=== PATIENT | female | born 1965 | race Asian ===

== ENCOUNTER 2021-10-08 18:20 | Inpatient (IN) | payer OTHER ==
[~2021-10-08] VITALS: Ht 152.4 cm; Wt 47.0 kg
[2021-10-08 22:05] LABS: Mean Corpuscular Volume 92.2 fL (80.0-100.0)
[2021-10-08 22:07] LABS: Hematocrit 53.7 % (36.0-46.0); Hemoglobin 16.6 g/dL (12.2-16.2); Mean Corpuscular Hemoglobin 28.5 pg (28.0-32.0); Mean Corpuscular Hgb Conc. 30.9 g/dL (32.0-36.0); Red Blood Cells 5.82 10^6/uL (4.0-5.20); White Blood Cell 19.8 10^3/uL (4.4-10.8)
[2021-10-08 22:10] LABS: Basophils % (manual) 0 (0.0-2.0); Blast Cells 0; Eosinophils % (manual) 0 (0-7); Metamyelocytes % 0; Promyelocytes % 0; Reactive Lymphocytes 0
[2021-10-08 23:25] LABS: Band Neutrophils % (manual) 18; Lymphocytes % (manual) 6 (10.0-50.0); Monocytes % (manual) 5 (0-12); Myelocytes % 1
[2021-10-08 23:44] LABS: Anion Gap 30 (5-15); Blood Urea Nitrogen 38 mg/dL (7-18); Chloride 98 mmol/L (98-107); Glucose 712 mg/dL (74-106); Sodium 131 mmol/L (136-145)
[2021-10-08 23:45] LABS: Alanine Aminotransferase 59 U/L (13-56); Albumin 3.5 g/dL (3.4-5.0); Alkaline Phosphatase 124 U/L (45-117); Aspartate Aminotransferase 47 U/L (15-37); BUN/Creatinine Ratio 28.6; Bilirubin, Total 0.5 mg/dL (0.2-1.0); Calcium 8.5 mg/dL (8.5-10.1); GFR African American 53 mL/min; GFR Non-African American 44 mL/min; Total Protein 7.7 g/dL (6.4-8.2)
[2021-10-08 23:48] LABS: Carbon Dioxide 3 mmol/L (21-32); Potassium 5.6 mmol/L (3.5-5.1)
[2021-10-09] MEDS ORDERED: CALCIUM GLUC 1,000mg/50ml-NS 50 ML IV ONE (00:15)
[2021-10-09] MEDS ORDERED: ETOMIDATE (2MG/ML) 20ML VIAL IV ONE (00:45)
[2021-10-09] MEDS ORDERED: SUCCINYLCHOLINE CHLORIDE 20 MG/ML 10ML VIAL IV ONE (00:45)
[2021-10-09] MEDS ORDERED: MIDAZOLAM DRIP 50 mg/50mL 50 ML IV ONE (00:52)
[2021-10-09] MEDS: MIDAZOLAM DRIP 50 mg/50mL 50 ML IV SCH (01:00)
[2021-10-09] MEDS ORDERED: DEXTROSE (50%) 50ML SYRG IV PRN ×3 (01:45→13:00)
[2021-10-09] MEDS: NOREPINEPHRINE 8 MG/250ML KIT 250 ML IV SCH (01:45)
[2021-10-09] MEDS ORDERED: InsuLIN R (HUMAN) 100 UNITS in SODIUM CHL 0.9% 99 ML IV SCH (01:45)
[2021-10-09] MEDS: InsuLIN R (HUMAN) 100 UNITS in SODIUM CHL 0.9% 99 ML IV SCH (02:00)
[2021-10-09] MEDS: fentaNYL Drip 2500mCg/250mlNS 250 ML IV SCH (02:07)
[2021-10-09 02:22] LABS: Urine Bacteria FEW /hpf (None Seen); Urine Blood TRACE /uL (Negative); Urine Hyaline Cast FEW /lpf (0 - 2); Urine Mucus FEW (None Seen); Urine Specific Gravity 1.022 (1.001-1.035); Urine WBC <1 /hpf (0 - 5)
[2021-10-09 03:12] LABS: Calcium 10.2 mg/dL (8.5-10.1); Potassium 4.9 mmol/L (3.5-5.1)
[2021-10-09] MEDS: SODIUM CHLORIDE 0.9% 1,000 ML IV SCH ×5 (03:22→22:50)
[2021-10-09] MEDS: ACCU-CHEK COMFORT CURVE STRIP VI SCH ×14 (03:25→21:00)
[2021-10-09 03:38] LABS: BUN/Creatinine Ratio 32.7
[2021-10-09] MEDS ORDERED: SODIUM CHLORIDE 0.9% 1,000 ML IV ONE (05:30)
[2021-10-09 06:07] VITALS: BP 124/57
[2021-10-09] MEDS ORDERED: ONDANSETRON HCL 4 MG/2 ML VIAL IV PRN (06:30)
[2021-10-09] MEDS ORDERED: NITROGLYCERIN 0.4 MG SL TAB SL PRN (06:30)
[2021-10-09] MEDS ORDERED: SODIUM BICARBONATE 50ML VIAL 100 ML in SOD CHL 0.45% 1,000 ML IV SCH (06:30)
[2021-10-09] MEDS ORDERED: MORPHINE SULFATE INJECTION 2 MG/ML SYRG IV PRN (06:30)
[2021-10-09] MEDS ORDERED: ACETAMINOPHEN 325 MG TAB PO PRN (06:30)
[2021-10-09] MEDS ORDERED: SODIUM CHLORIDE 0.9% 1,000 ML IV SCH (07:30)
[2021-10-09 09:54] VITALS: BP 119/57
[2021-10-09] MEDS ORDERED: ENOXAPARIN SOD 40 MG/0.4 ML SYRINGE SC SCH (10:00)
[2021-10-09] MEDS: AZITHROMYCIN 500MG/ 250ML 250 ML IV SCH (10:43)
[2021-10-09 12:25] LABS: Calcium 7.8 mg/dL (8.5-10.1); Potassium 4.4 mmol/L (3.5-5.1)
[2021-10-09 12:28] LABS: BUN/Creatinine Ratio 41.8
[2021-10-09] MEDS ORDERED: ACETAMINOPHEN 500 MG TAB PO PRN (12:45)
[2021-10-09] MEDS ORDERED: REMDESIVIR PER PHARMACY 0 ML IV SCH (12:45)
[2021-10-09] MEDS ORDERED: ALBUTEROL SULF HFA 90MCG INH 200DOSE IN PRN (12:45)
[2021-10-09] MEDS ORDERED: cefTRIAXone 1GM/50ML D5W 50 ML IV ONE (12:45)
[2021-10-09] MEDS ORDERED: PANTOPRAZOLE 40 MG/10 ML VIAL INJ IV ONE (13:00)
[2021-10-09] MEDS ORDERED: ALBUTEROL SULF 2.5 MG/0.5ML(0.5%) NEB SOLN NEB PRN (13:15)
[2021-10-09 14:03] VITALS: BP 100/49
[2021-10-09] MEDS: IVERMECTIN 3 MG TAB PO SCH (14:15)
[2021-10-09 14:55] LABS: Albumin 2.3 g/dL (3.4-5.0); Calcium 7.8 mg/dL (8.5-10.1); Potassium 4.9 mmol/L (3.5-5.1)
[2021-10-09 14:56] LABS: Calcium 7.9 mg/dL (8.5-10.1); Potassium 4.8 mmol/L (3.5-5.1)
[2021-10-09 14:58] LABS: BUN/Creatinine Ratio 38.1; BUN/Creatinine Ratio 39.7; Bilirubin, Total 0.3 mg/dL (0.2-1.0); Total Protein 4.7 g/dL (6.4-8.2)
[2021-10-09 17:58] VITALS: BP 106/54
[2021-10-09] MEDS: InsuLIN REG 1unit/0.01ml Soln (100units/ml) SC SCH (18:05)
[2021-10-09] MEDS: ENOXAPARIN SOD 40 MG/0.4 ML SYRINGE SC SCH (21:51)
[2021-10-09 22:30] VITALS: BP 100/54
[2021-10-09 22:59] LABS: BUN/Creatinine Ratio 29.9; Calcium 7.7 mg/dL (8.5-10.1)
[2021-10-10] MEDS: ACCU-CHEK COMFORT CURVE STRIP VI SCH ×5 (00:07→20:27)
[2021-10-10] MEDS: InsuLIN REG 1unit/0.01ml Soln (100units/ml) SC SCH ×5 (00:10→20:29)
[2021-10-10] MEDS: MIDAZOLAM DRIP 50 mg/50mL 50 ML IV SCH ×2 (00:45→09:10)
[2021-10-10] MEDS: InsuLIN R (HUMAN) 100 UNITS in SODIUM CHL 0.9% 99 ML IV SCH (02:00)
[2021-10-10 02:30] VITALS: BP 129/67
[2021-10-10] MEDS ORDERED: SOD CHL 0.45% 1,000 ML IV SCH (03:45)
[2021-10-10 03:58] LABS: Basophils # (auto) 0 10 ^3/uL (0-0.2); Basophils % (auto) 0.2 % (0.0-2.0); Eosinophils # (auto) 0 10 ^3/uL (0-0.8); Hematocrit 34.4 % (36.0-46.0); Hemoglobin 11.7 g/dL (12.2-16.2); Lymphocytes # (auto) 0.6 10 ^3/uL (0.4-5.4); Mean Corpuscular Hemoglobin 28.8 pg (28.0-32.0); Mean Corpuscular Hgb Conc. 33.9 g/dL (32.0-36.0); Mean Corpuscular Volume 84.7 fL (80.0-100.0); Monocytes # (auto) 1.5 10 ^3/uL (0-1.3); Monocytes % (auto) 14.2 % (0.0-12.0); Neutrophils # (auto) 8.5 10 ^3/uL (1.6-8.6); Neutrophils % (auto) 79.6 % (37.0-80.0); Nucleated Red Blood Cells % 0.1 %; Red Blood Cells 4.06 10^6/uL (4.0-5.20); Red Cell Distribution Width 13.4 % (11.8-14.3); White Blood Cell 10.7 10^3/uL (4.4-10.8)
[2021-10-10 04:20] LABS: Albumin 2.1 g/dL (3.4-5.0); BUN/Creatinine Ratio 31.1; Calcium 7.7 mg/dL (8.5-10.1); Potassium 3.6 mmol/L (3.5-5.1)
[2021-10-10 04:23] LABS: Bilirubin, Total 0.2 mg/dL (0.2-1.0); Total Protein 4.6 g/dL (6.4-8.2)
[2021-10-10 06:15] VITALS: BP 152/60
[2021-10-10] MEDS: NOREPINEPHRINE 8 MG/250ML KIT 250 ML IV SCH (08:31)
[2021-10-10] MEDS: cefTRIAXone 1GM/50ML D5W 50 ML IV SCH (08:47)
[2021-10-10 09:58] VITALS: BP 148/66
[2021-10-10] MEDS: fentaNYL Drip 2500mCg/250mlNS 250 ML IV SCH (10:07)
[2021-10-10] MEDS: DexAMETHasone SOD PHOS 10MG/1ML VIAL INJ IV SCH (10:58)
[2021-10-10] MEDS: AZITHROMYCIN 500MG/ 250ML 250 ML IV SCH (10:59)
[2021-10-10] MEDS: PANTOPRAZOLE 40 MG/10 ML VIAL INJ IV SCH (10:59)
[2021-10-10] MEDS: ENOXAPARIN SOD 40 MG/0.4 ML SYRINGE SC SCH ×2 (11:00→22:07)
[2021-10-10] MEDS: ZINC SULFATE 220mg CAP or TAB PO SCH (11:03)
[2021-10-10] MEDS: IVERMECTIN 3 MG TAB PO SCH (11:04)
[2021-10-10] MEDS: ASCORBIC ACID 1,000 MG TAB PO SCH (11:05)
[2021-10-10] MEDS: CHOLECALCIFEROL (VITD3) 2,000 UNIT CAP/TAB PO SCH (11:06)
[2021-10-10] MEDS: SODIUM BICARBONATE 50ML VIAL 50 ML in D5W 5% 1,000 ML IV SCH ×2 (11:45→21:40)
[2021-10-10] MEDS ORDERED: DEXTROSE (50%) 50ML SYRG IV PRN (13:00)
[2021-10-10 14:10] VITALS: BP 132/60
[2021-10-10 18:40] VITALS: BP 142/74
[2021-10-10 22:17] VITALS: BP 122/63
[2021-10-10 22:22] LABS: Phosphorus 1.7 mg/dL (2.5-4.90)
[2021-10-11] VITALS (7 sets, daily range): BP systolic 108–137; BP diastolic 63–77
[2021-10-11] MEDS: ACCU-CHEK COMFORT CURVE STRIP VI SCH ×6 (00:30→22:54)
[2021-10-11] MEDS: InsuLIN REG 1unit/0.01ml Soln (100units/ml) SC SCH ×6 (00:33→22:55)
[2021-10-11] MEDS: NOREPINEPHRINE 8 MG/250ML KIT 250 ML IV SCH (01:45)
[2021-10-11] MEDS: fentaNYL Drip 2500mCg/250mlNS 250 ML IV SCH ×2 (02:00→11:34)
[2021-10-11] MEDS: SODIUM BICARBONATE 50ML VIAL 50 ML in D5W 5% 1,000 ML IV SCH ×3 (05:50→11:33)
[2021-10-11 06:38] LABS: Basophils # (auto) 0 10 ^3/uL (0-0.2); Basophils % (auto) 0.2 % (0.0-2.0); Eosinophils # (auto) 0 10 ^3/uL (0-0.8); Hemoglobin 10.4 g/dL (12.2-16.2); Lymphocytes % (auto) 9.7 % (10.0-50.0); Mean Corpuscular Hemoglobin 29.2 pg (28.0-32.0); Mean Corpuscular Hgb Conc. 34.5 g/dL (32.0-36.0); Mean Corpuscular Volume 84.5 fL (80.0-100.0); Monocytes # (auto) 0.9 10 ^3/uL (0-1.3); Monocytes % (auto) 9.5 % (0.0-12.0); Neutrophils % (auto) 80.6 % (37.0-80.0); Nucleated Red Blood Cells % 0.3 %; Red Blood Cells 3.55 10^6/uL (4.0-5.20); Red Cell Distribution Width 13.6 % (11.8-14.3); White Blood Cell 9.9 10^3/uL (4.4-10.8)
[2021-10-11 06:59] LABS: Potassium 3.4 mmol/L (3.5-5.1)
[2021-10-11 07:04] LABS: Albumin 1.8 g/dL (3.4-5.0); BUN/Creatinine Ratio 27.5; Calcium 7.4 mg/dL (8.5-10.1)
[2021-10-11 07:07] LABS: Bilirubin, Total 0.2 mg/dL (0.2-1.0)
[2021-10-11] MEDS: cefTRIAXone 1GM/50ML D5W 50 ML IV SCH (09:00)
[2021-10-11] MEDS: ENOXAPARIN SOD 40 MG/0.4 ML SYRINGE SC SCH ×2 (10:00→22:58)
[2021-10-11] MEDS: AZITHROMYCIN 500MG/ 250ML 250 ML IV SCH (10:00)
[2021-10-11] MEDS: PANTOPRAZOLE 40 MG/10 ML VIAL INJ IV SCH (10:00)
[2021-10-11] MEDS: DexAMETHasone SOD PHOS 10MG/1ML VIAL INJ IV SCH (10:00)
[2021-10-11 11:18] LABS: Hepatitis C Antibody Negative (Negative)
[2021-10-11] MEDS: IVERMECTIN 3 MG TAB PO SCH (13:12)
[2021-10-11] MEDS: ZINC SULFATE 220mg CAP or TAB PO SCH (13:12)
[2021-10-11] MEDS: ASCORBIC ACID 1,000 MG TAB PO SCH (13:12)
[2021-10-11] MEDS: CHOLECALCIFEROL (VITD3) 2,000 UNIT CAP/TAB PO SCH (13:12)
[2021-10-12] VITALS (10 sets, daily range): BP systolic 130–169; BP diastolic 62–87
[2021-10-12 00:26] LABS: Sodium 139 mmol/L (136-145)
[2021-10-12] MEDS: MIDAZOLAM DRIP 50 mg/50mL 50 ML IV SCH (00:45)
[2021-10-12 00:56] LABS: Anion Gap 11 (5-15); BUN/Creatinine Ratio 25.1; Blood Urea Nitrogen 65 mg/dL (7-18); Calcium 7.7 mg/dL (8.5-10.1); Carbon Dioxide 15 mmol/L (21-32); Chloride 113 mmol/L (98-107); GFR African American 25 mL/min; GFR Non-African American 20 mL/min; Glucose 356 mg/dL (74-106); Potassium 3.6 mmol/L (3.5-5.1)
[2021-10-12] MEDS: NOREPINEPHRINE 8 MG/250ML KIT 250 ML IV SCH (01:45)
[2021-10-12] MEDS: ACCU-CHEK COMFORT CURVE STRIP VI SCH ×6 (06:01→20:00)
[2021-10-12] MEDS: InsuLIN REG 1unit/0.01ml Soln (100units/ml) SC SCH ×6 (06:01→20:00)
[2021-10-12 07:09] LABS: Basophils # (auto) 0 10 ^3/uL (0-0.2); Basophils % (auto) 0.3 % (0.0-2.0); Eosinophils # (auto) 0 10 ^3/uL (0-0.8); Hematocrit 30.9 % (36.0-46.0); Hemoglobin 10.6 g/dL (12.2-16.2); Lymphocytes # (auto) 1.1 10 ^3/uL (0.4-5.4); Lymphocytes % (auto) 11.3 % (10.0-50.0); Mean Corpuscular Hemoglobin 29.2 pg (28.0-32.0); Mean Corpuscular Hgb Conc. 34.2 g/dL (32.0-36.0); Mean Corpuscular Volume 85.4 fL (80.0-100.0); Monocytes # (auto) 0.8 10 ^3/uL (0-1.3); Monocytes % (auto) 8.4 % (0.0-12.0); Nucleated Red Blood Cells % 0.2 %; Red Blood Cells 3.62 10^6/uL (4.0-5.20); Red Cell Distribution Width 13.8 % (11.8-14.3); White Blood Cell 10.1 10^3/uL (4.4-10.8)
[2021-10-12 07:41] LABS: Alanine Aminotransferase 22 U/L (13-56); Albumin 1.8 g/dL (3.4-5.0); Alkaline Phosphatase 82 U/L (45-117); Anion Gap 9 (5-15); Aspartate Aminotransferase 25 U/L (15-37); BUN/Creatinine Ratio 27.5; Bilirubin, Total 0.3 mg/dL (0.2-1.0); Blood Urea Nitrogen 66 mg/dL (7-18); Calcium 7.5 mg/dL (8.5-10.1); Carbon Dioxide 17 mmol/L (21-32); Chloride 116 mmol/L (98-107); GFR African American 27 mL/min; GFR Non-African American 22 mL/min; Glucose 105 mg/dL (74-106); Potassium 3.5 mmol/L (3.5-5.1); Sodium 142 mmol/L (136-145); Total Protein 4.5 g/dL (6.4-8.2)
[2021-10-12] MEDS: fentaNYL Drip 2500mCg/250mlNS 250 ML IV SCH (08:54)
[2021-10-12] MEDS: cefTRIAXone 1GM/50ML D5W 50 ML IV SCH (09:00)
[2021-10-12] MEDS: DexAMETHasone SOD PHOS 10MG/1ML VIAL INJ IV SCH (10:00)
[2021-10-12] MEDS: CHOLECALCIFEROL (VITD3) 2,000 UNIT CAP/TAB PO SCH (10:00)
[2021-10-12] MEDS: AZITHROMYCIN 500MG/ 250ML 250 ML IV SCH (10:00)
[2021-10-12] MEDS: ASCORBIC ACID 1,000 MG TAB PO SCH (10:00)
[2021-10-12] MEDS: ZINC SULFATE 220mg CAP or TAB PO SCH (10:00)
[2021-10-12] MEDS: ENOXAPARIN SOD 40 MG/0.4 ML SYRINGE SC SCH ×2 (10:00→21:52)
[2021-10-12] MEDS: IVERMECTIN 3 MG TAB PO SCH (10:00)
[2021-10-12] MEDS: PANTOPRAZOLE 40 MG/10 ML VIAL INJ IV SCH (10:00)
[2021-10-13] VITALS (28 sets, daily range): BP systolic 132–168; BP diastolic 43–87
[2021-10-13] MEDS: MIDAZOLAM DRIP 50 mg/50mL 50 ML IV SCH (00:45)
[2021-10-13] MEDS: InsuLIN REG 1unit/0.01ml Soln (100units/ml) SC SCH ×6 (00:48→20:00)
[2021-10-13] MEDS: NOREPINEPHRINE 8 MG/250ML KIT 250 ML IV SCH (00:50)
[2021-10-13] MEDS: ACCU-CHEK COMFORT CURVE STRIP VI SCH ×6 (00:50→20:00)
[2021-10-13 05:06] LABS: Basophils # (auto) 0.1 10 ^3/uL (0-0.2); Basophils % (auto) 0.9 % (0.0-2.0); Eosinophils # (auto) 0 10 ^3/uL (0-0.8); Hematocrit 24.8 % (36.0-46.0); Hemoglobin 8.6 g/dL (12.2-16.2); Lymphocytes # (auto) 1.2 10 ^3/uL (0.4-5.4); Lymphocytes % (auto) 15.6 % (10.0-50.0); Mean Corpuscular Hemoglobin 30.8 pg (28.0-32.0); Mean Corpuscular Hgb Conc. 34.9 g/dL (32.0-36.0); Mean Corpuscular Volume 88.3 fL (80.0-100.0); Monocytes # (auto) 0.6 10 ^3/uL (0-1.3); Monocytes % (auto) 7.4 % (0.0-12.0); Neutrophils % (auto) 76.1 % (37.0-80.0); Nucleated Red Blood Cells % 0.1 %; Red Blood Cells 2.81 10^6/uL (4.0-5.20); Red Cell Distribution Width 13.9 % (11.8-14.3); White Blood Cell 7.9 10^3/uL (4.4-10.8)
[2021-10-13 05:44] LABS: Albumin 1.8 g/dL (3.4-5.0); BUN/Creatinine Ratio 30.7; Calcium 7.9 mg/dL (8.5-10.1); Potassium 3.1 mmol/L (3.5-5.1)
[2021-10-13] MEDS: fentaNYL Drip 2500mCg/250mlNS 250 ML IV SCH (05:45)
[2021-10-13 05:47] LABS: Bilirubin, Total 0.3 mg/dL (0.2-1.0); Total Protein 4.3 g/dL (6.4-8.2)
[2021-10-13] MEDS: cefTRIAXone 1GM/50ML D5W 50 ML IV SCH (09:00)
[2021-10-13] MEDS: AZITHROMYCIN 500MG/ 250ML 250 ML IV SCH (10:00)
[2021-10-13] MEDS: PANTOPRAZOLE 40 MG/10 ML VIAL INJ IV SCH (10:26)
[2021-10-13] MEDS: CHOLECALCIFEROL (VITD3) 2,000 UNIT CAP/TAB PO SCH (10:26)
[2021-10-13] MEDS: ASCORBIC ACID 1,000 MG TAB PO SCH (10:26)
[2021-10-13] MEDS: ENOXAPARIN SOD 40 MG/0.4 ML SYRINGE SC SCH ×2 (10:26→21:19)
[2021-10-13] MEDS: ZINC SULFATE 220mg CAP or TAB PO SCH (10:26)
[2021-10-13] MEDS: IVERMECTIN 3 MG TAB PO SCH (10:26)
[2021-10-13] MEDS: DexAMETHasone SOD PHOS 10MG/1ML VIAL INJ IV SCH (10:26)
[2021-10-13] MEDS ORDERED: SODIUM CHLORIDE 0.9% 1,000 ML IV ONE (12:30)
[2021-10-14] VITALS (21 sets, daily range): BP systolic 114–170; BP diastolic 64–78
[2021-10-14] MEDS: MIDAZOLAM DRIP 50 mg/50mL 50 ML IV SCH (00:45)
[2021-10-14] MEDS: NOREPINEPHRINE 8 MG/250ML KIT 250 ML IV SCH (01:45)
[2021-10-14] MEDS: ACCU-CHEK COMFORT CURVE STRIP VI SCH ×6 (04:00→20:00)
[2021-10-14] MEDS: InsuLIN REG 1unit/0.01ml Soln (100units/ml) SC SCH ×6 (04:00→20:00)
[2021-10-14] MEDS: cefTRIAXone 1GM/50ML D5W 50 ML IV SCH (09:11)
[2021-10-14] MEDS: PANTOPRAZOLE 40 MG/10 ML VIAL INJ IV SCH (10:21)
[2021-10-14] MEDS: AZITHROMYCIN 500MG/ 250ML 250 ML IV SCH (10:21)
[2021-10-14] MEDS: ZINC SULFATE 220mg CAP or TAB PO SCH (10:21)
[2021-10-14] MEDS: DexAMETHasone SOD PHOS 10MG/1ML VIAL INJ IV SCH (10:21)
[2021-10-14] MEDS: ENOXAPARIN SOD 40 MG/0.4 ML SYRINGE SC SCH (10:22)
[2021-10-14] MEDS: CHOLECALCIFEROL (VITD3) 2,000 UNIT CAP/TAB PO SCH (10:22)
[2021-10-14] MEDS: ASCORBIC ACID 1,000 MG TAB PO SCH (10:22)
[2021-10-14 12:31] LABS: Basophils # (auto) 0 10 ^3/uL (0-0.2); Basophils % (auto) 0.2 % (0.0-2.0); Eosinophils # (auto) 0 10 ^3/uL (0-0.8); Eosinophils % (auto) 0.2 % (0.0-7.0); Hematocrit 28.4 % (36.0-46.0); Hemoglobin 9.6 g/dL (12.2-16.2); Lymphocytes # (auto) 0.9 10 ^3/uL (0.4-5.4); Lymphocytes % (auto) 7.8 % (10.0-50.0); Mean Corpuscular Hemoglobin 30.1 pg (28.0-32.0); Mean Corpuscular Hgb Conc. 33.8 g/dL (32.0-36.0); Mean Corpuscular Volume 89.2 fL (80.0-100.0); Monocytes # (auto) 0.5 10 ^3/uL (0-1.3); Monocytes % (auto) 4.4 % (0.0-12.0); Neutrophils # (auto) 9.9 10 ^3/uL (1.6-8.6); Neutrophils % (auto) 87.4 % (37.0-80.0); Red Blood Cells 3.19 10^6/uL (4.0-5.20); Red Cell Distribution Width 13.8 % (11.8-14.3); White Blood Cell 11.3 10^3/uL (4.4-10.8)
[2021-10-14 13:15] LABS: Albumin 1.9 g/dL (3.4-5.0); BUN/Creatinine Ratio 30.9; Bilirubin, Total 0.2 mg/dL (0.2-1.0); Calcium 8.1 mg/dL (8.5-10.1); Total Protein 4.4 g/dL (6.4-8.2)
[2021-10-14 13:23] LABS: Potassium 2.9 mmol/L (3.5-5.1)
[2021-10-14] MEDS: POTASSIUM CHL 10MEQ/50ML 50 ML IV SCH ×5 (13:27→18:27)
[2021-10-15] VITALS: BP 117/67
[2021-10-15 00:35] LABS: BUN/Creatinine Ratio 32.1; Calcium 8.4 mg/dL (8.5-10.1); Potassium 4.3 mmol/L (3.5-5.1)
[2021-10-15] MEDS: InsuLIN REG 1unit/0.01ml Soln (100units/ml) SC SCH ×6 (00:39→20:00)
[2021-10-15] MEDS: ENOXAPARIN SOD 40 MG/0.4 ML SYRINGE SC SCH ×3 (00:40→23:03)
[2021-10-15] MEDS: MIDAZOLAM DRIP 50 mg/50mL 50 ML IV SCH (00:45)
[2021-10-15 01:00] VITALS: BP 149/89
[2021-10-15] MEDS: NOREPINEPHRINE 8 MG/250ML KIT 250 ML IV SCH (01:45)
[2021-10-15 02:00] VITALS: BP 119/62
[2021-10-15] MEDS: fentaNYL Drip 2500mCg/250mlNS 250 ML IV SCH (02:00)
[2021-10-15 03:01] VITALS: BP 124/67
[2021-10-15 04:00] VITALS: BP 119/62
[2021-10-15] MEDS: ACCU-CHEK COMFORT CURVE STRIP VI SCH ×6 (04:00→20:00)
[2021-10-15] MEDS: cefTRIAXone 1GM/50ML D5W 50 ML IV SCH ×2 (09:00→10:00)
[2021-10-15] MEDS: PANTOPRAZOLE 40 MG/10 ML VIAL INJ IV SCH (10:00)
[2021-10-15] MEDS: AZITHROMYCIN 500MG/ 250ML 250 ML IV SCH (10:00)
[2021-10-15] MEDS: DexAMETHasone SOD PHOS 10MG/1ML VIAL INJ IV SCH (10:00)
[2021-10-15] MEDS: CHOLECALCIFEROL (VITD3) 2,000 UNIT CAP/TAB PO SCH (10:00)
[2021-10-15] MEDS: ASCORBIC ACID 1,000 MG TAB PO SCH (10:00)
[2021-10-15] MEDS: ZINC SULFATE 220mg CAP or TAB PO SCH (10:00)
[2021-10-15] MEDS ORDERED: D5W 5% 1,000 ML IV ONE (19:00)
[2021-10-16] MEDS: MIDAZOLAM DRIP 50 mg/50mL 50 ML IV SCH (00:45)
[2021-10-16] MEDS: NOREPINEPHRINE 8 MG/250ML KIT 250 ML IV SCH (01:45)
[2021-10-16] MEDS: fentaNYL Drip 2500mCg/250mlNS 250 ML IV SCH (02:00)
[2021-10-16] MEDS: ACCU-CHEK COMFORT CURVE STRIP VI SCH ×8 (03:27→23:32)
[2021-10-16] MEDS: InsuLIN REG 1unit/0.01ml Soln (100units/ml) SC SCH ×7 (04:00→23:43)
[2021-10-16 07:00] VITALS: BP 122/71
[2021-10-16 10:00] VITALS: BP 125/66
[2021-10-16] MEDS: PANTOPRAZOLE 40 MG/10 ML VIAL INJ IV SCH (10:00)
[2021-10-16] MEDS: ASCORBIC ACID 1,000 MG TAB PO SCH (10:00)
[2021-10-16] MEDS: AZITHROMYCIN 500MG/ 250ML 250 ML IV SCH (10:00)
[2021-10-16] MEDS: DexAMETHasone SOD PHOS 10MG/1ML VIAL INJ IV SCH (10:00)
[2021-10-16] MEDS: ENOXAPARIN SOD 40 MG/0.4 ML SYRINGE SC SCH ×2 (10:00→21:24)
[2021-10-16] MEDS: CHOLECALCIFEROL (VITD3) 2,000 UNIT CAP/TAB PO SCH (10:00)
[2021-10-16] MEDS: ZINC SULFATE 220mg CAP or TAB PO SCH (10:00)
[2021-10-16 17:46] VITALS: BP 112/57
[2021-10-16 22:00] VITALS: BP 108/67
[2021-10-17] MEDS: InsuLIN REG 1unit/0.01ml Soln (100units/ml) SC SCH ×6 (03:54→23:45)
[2021-10-17] MEDS: ACCU-CHEK COMFORT CURVE STRIP VI SCH ×6 (03:54→23:37)
[2021-10-17 04:49] VITALS: BP 109/54
[2021-10-17 07:56] LABS: Potassium 3.4 mmol/L (3.5-5.1)
[2021-10-17 08:12] LABS: BUN/Creatinine Ratio 30.9; Calcium 8.4 mg/dL (8.5-10.1)
[2021-10-17 09:00] VITALS: BP 125/74
[2021-10-17] MEDS: DexAMETHasone SOD PHOS 10MG/1ML VIAL INJ IV SCH (09:24)
[2021-10-17] MEDS: cefTRIAXone 1GM/50ML D5W 50 ML IV SCH (09:24)
[2021-10-17] MEDS: PANTOPRAZOLE 40 MG/10 ML VIAL INJ IV SCH (09:24)
[2021-10-17] MEDS: AZITHROMYCIN 500MG/ 250ML 250 ML IV SCH ×2 (09:26→09:38)
[2021-10-17] MEDS: CHOLECALCIFEROL (VITD3) 2,000 UNIT CAP/TAB PO SCH (09:27)
[2021-10-17] MEDS: ASCORBIC ACID 1,000 MG TAB PO SCH (09:27)
[2021-10-17] MEDS: ENOXAPARIN SOD 40 MG/0.4 ML SYRINGE SC SCH ×2 (09:27→22:09)
[2021-10-17] MEDS: ZINC SULFATE 220mg CAP or TAB PO SCH (09:37)
[2021-10-17 13:00] VITALS: BP 126/59
[2021-10-17 17:00] VITALS: BP 112/56
[2021-10-17] MEDS ORDERED: OMEP20TA PO (19:18)
[2021-10-17] MEDS ORDERED: INSLANTI SC (19:18)
[2021-10-17] MEDS ORDERED: METF-370 PO (19:18)
[2021-10-17] MEDS ORDERED: GABA100C9 PO (19:18)
[2021-10-17] MEDS ORDERED: CLOT1CRE13 TOP (19:18)
[2021-10-17] MEDS ORDERED: PSEU120T43 PO (19:18)
[2021-10-17] MEDS ORDERED: BUSP10TA31 PO (19:18)
[2021-10-17 22:00] VITALS: BP 105/67
[2021-10-18] MEDS: InsuLIN REG 1unit/0.01ml Soln (100units/ml) SC SCH ×6 (04:00→23:44)
[2021-10-18] MEDS: ACCU-CHEK COMFORT CURVE STRIP VI SCH ×6 (04:02→23:43)
[2021-10-18 05:00] VITALS: BP 131/78
[2021-10-18 07:31] LABS: Hematocrit 28.2 % (36.0-46.0); Hemoglobin 9.8 g/dL (12.2-16.2); Mean Corpuscular Hemoglobin 32.1 pg (28.0-32.0); Mean Corpuscular Hgb Conc. 34.7 g/dL (32.0-36.0); Mean Corpuscular Volume 92.7 fL (80.0-100.0); Red Blood Cells 3.05 10^6/uL (4.0-5.20); White Blood Cell 7.8 10^3/uL (4.4-10.8)
[2021-10-18] MEDS: DexAMETHasone SOD PHOS 10MG/1ML VIAL INJ IV SCH (08:20)
[2021-10-18] MEDS: ZINC SULFATE 220mg CAP or TAB PO SCH (08:20)
[2021-10-18] MEDS: CHOLECALCIFEROL (VITD3) 2,000 UNIT CAP/TAB PO SCH (08:22)
[2021-10-18] MEDS: ENOXAPARIN SOD 40 MG/0.4 ML SYRINGE SC SCH ×2 (08:22→21:22)
[2021-10-18] MEDS: PANTOPRAZOLE 40 MG TAB PO SCH (08:22)
[2021-10-18] MEDS: ASCORBIC ACID 1,000 MG TAB PO SCH (08:22)
[2021-10-18 08:45] LABS: Basophils % (manual) 0 (0.0-2.0); Eosinophils % (manual) 0 (0-7); Myelocytes % 0; Promyelocytes % 0; Reactive Lymphocytes 0
[2021-10-18 08:46] LABS: Blast Cells 0
[2021-10-18 09:00] VITALS: BP 111/84
[2021-10-18 11:38] LABS: Band Neutrophils % (manual) 3; Lymphocytes % (manual) 20 (10.0-50.0); Metamyelocytes % 1; Monocytes % (manual) 10 (0-12)
[2021-10-18 13:00] VITALS: BP 129/71
[2021-10-18 17:00] VITALS: BP 116/69
[2021-10-18 21:33] VITALS: BP 109/65
[2021-10-19] MEDS: InsuLIN REG 1unit/0.01ml Soln (100units/ml) SC SCH ×3 (03:56→12:00)
[2021-10-19] MEDS: ACCU-CHEK COMFORT CURVE STRIP VI SCH ×3 (03:56→11:57)
[2021-10-19 04:56] VITALS: BP 120/72
[2021-10-19] MEDS: DexAMETHasone SOD PHOS 10MG/1ML VIAL INJ IV SCH (08:40)
[2021-10-19] MEDS: PANTOPRAZOLE 40 MG TAB PO SCH (08:40)
[2021-10-19] MEDS: ZINC SULFATE 220mg CAP or TAB PO SCH (08:40)
[2021-10-19] MEDS: CHOLECALCIFEROL (VITD3) 2,000 UNIT CAP/TAB PO SCH (08:40)
[2021-10-19] MEDS: ASCORBIC ACID 1,000 MG TAB PO SCH (08:40)
[2021-10-19] MEDS: ENOXAPARIN SOD 40 MG/0.4 ML SYRINGE SC SCH (08:41)
[2021-10-19 09:00] VITALS: BP 110/70
[2021-10-19] MEDS ORDERED: ZINC220C10 PO (10:52)
[2021-10-19] MEDS ORDERED: ASCO500C49 PO (10:52)
== END 2021-10-19 16:50 | disposition home or self-care (01) | DRG 720 ==
LOC: EDBD 18:20 → ER 18:27 → TELE 10-09 06:33 → ICU WEST 10-10 09:24 → TELE-E-ADS 10-16 17:26
PROVIDERS: ADMIT Nurse Practitioner; ATTEND Family Medicine
PROC: 5A1955Z Respiratory Ventilation, Greater than 96 Consecutive Hours (ICD-10-PCS; principal; 2021-10-09)
PROC: 0BH17EZ Insertion of Endotracheal Airway into Trachea, Via Natural or Artificial Opening (ICD-10-PCS; 2021-10-09)
PROC: 05HM33Z Insertion of Infusion Device into Right Internal Jugular Vein, Percutaneous Approach (ICD-10-PCS; 2021-10-09)
PROC: 5A1935Z Respiratory Ventilation, Less than 24 Consecutive Hours (ICD-10-PCS; 2021-10-15)
PROC: 0BH17EZ Insertion of Endotracheal Airway into Trachea, Via Natural or Artificial Opening (ICD-10-PCS; 2021-10-15)
DX: A41.89 Other specified sepsis (principal); J96.01 Acute respiratory failure with hypoxia; J12.82 Pneumonia due to coronavirus disease 2019; N17.0 Acute kidney failure with tubular necrosis; R65.21 Severe sepsis with septic shock; E11.10 Type 2 diabetes mellitus with ketoacidosis without coma; G93.41 Metabolic encephalopathy; U07.1 COVID-19; E87.5 Hyperkalemia; E86.0 Dehydration; E87.0 Hyperosmolality and hypernatremia; N18.9 Chronic kidney disease, unspecified; E87.6 Hypokalemia; E11.22 Type 2 diabetes mellitus with diabetic chronic kidney disease
CPT/HCPCS: 31500; 36415; 36556; 36600; 70450; 71045; 76775; 80048; 80053; 81001; 82306; 82728; 82805; 82962; 83036; 83605; 83615; 83735; 83970; 84100; 84295; 85007; 85025; 85027; 85379; 86141; 86803; 87040; 87070; 87081; 87086; 87205; 87340; 87426; 92610; 93005; 93970; 94002; 94003; 96361; 96365; 96367; 99152; C9113; G0378; J0330; J0696; J1100; J1815; J2250; J7042

== ENCOUNTER 2021-10-22 09:56 | Inpatient (IN) | payer OTHER ==
[~2021-10-22] VITALS: Ht 162.6 cm; Wt 60.8 kg
[~2021-10-22 09:56] MED LIST: ASCO500C49 PO; BUSP10TA31 PO; CLOT1CRE13 TOP; GABA100C9 PO; INSLANTI SC; METF-370 PO; OMEP20TA PO; PSEU120T43 PO; ZINC220C10 PO
[2021-10-22] MEDS ORDERED: DEXTROSE (50%) 50ML SYRG IV ONE ×3 (10:15→14:45)
[2021-10-22] MEDS ORDERED: ACCU-CHEK COMFORT CURVE STRIP VI ONE ×2 (10:15→10:30)
[2021-10-22 10:33] LABS: Basophils # (auto) 0 10 ^3/uL (0-0.2); Basophils % (auto) 0.1 % (0.0-2.0); Eosinophils # (auto) 0 10 ^3/uL (0-0.8); Hematocrit 30.8 % (36.0-46.0); Hemoglobin 10.3 g/dL (12.2-16.2); Lymphocytes # (auto) 0.4 10 ^3/uL (0.4-5.4); Lymphocytes % (auto) 3.4 % (10.0-50.0); Mean Corpuscular Hemoglobin 29.4 pg (28.0-32.0); Mean Corpuscular Hgb Conc. 33.5 g/dL (32.0-36.0); Mean Corpuscular Volume 87.6 fL (80.0-100.0); Monocytes # (auto) 0.3 10 ^3/uL (0-1.3); Monocytes % (auto) 2.8 % (0.0-12.0); Neutrophils # (auto) 11.5 10 ^3/uL (1.6-8.6); Neutrophils % (auto) 93.7 % (37.0-80.0); Red Blood Cells 3.51 10^6/uL (4.0-5.20); Red Cell Distribution Width 14.2 % (11.8-14.3); White Blood Cell 12.3 10^3/uL (4.4-10.8)
[2021-10-22 10:43] LABS: Potassium 3.1 mmol/L (3.5-5.1)
[2021-10-22 10:44] LABS: Albumin 1.9 g/dL (3.4-5.0); BUN/Creatinine Ratio 19.4; Calcium 7.4 mg/dL (8.5-10.1)
[2021-10-22 10:46] LABS: Bilirubin, Total 0.3 mg/dL (0.2-1.0); Total Protein 4.8 g/dL (6.4-8.2)
[2021-10-22] MEDS ORDERED: DEXTROSE 10% 250 ML IV ONE (11:00)
[2021-10-22] MEDS ORDERED: DEXTROSE 50% SYRINGE 50 ML IV ONE (14:36)
[2021-10-22] MEDS ORDERED: NITROGLYCERIN 0.4 MG SL TAB SL PRN ×2 (14:45→18:45)
[2021-10-22] MEDS ORDERED: D5W 5% 1,000 ML IV ONE (14:45)
[2021-10-22] MEDS ORDERED: MORPHINE SULFATE INJECTION 2 MG/ML SYRG IV PRN ×3 (14:45→18:45)
[2021-10-22] MEDS: POTASSIUM CHL 10MEQ/50ML 50 ML IV SCH ×4 (15:14→18:31)
[2021-10-22] MEDS ORDERED: ENOXAPARIN SOD 40 MG/0.4 ML SYRINGE SC ONE (18:30)
[2021-10-22] MEDS ORDERED: PANTOPRAZOLE 40 MG/10 ML VIAL INJ IV ONE (18:30)
[2021-10-22] MEDS ORDERED: IPRATROPIUM BROM 0.5 MG/2.5ML INH SOL NEB ONE (18:30)
[2021-10-22] MEDS ORDERED: levoFLOXacin 500MG 100 ML IV ONE (18:30)
[2021-10-22] MEDS ORDERED: LORazepam 0.5 MG TAB PO PRN (18:45)
[2021-10-22] MEDS ORDERED: DOCUSATE SOD 100 MG CAP PO PRN (18:45)
[2021-10-22] MEDS ORDERED: METOCLOPRAMIDE HCL 5MG/ml INJ 2ml VIAL IV PRN (18:45)
[2021-10-22] MEDS ORDERED: ACETAMINOPHEN 325 MG TAB PO PRN (18:45)
[2021-10-22] MEDS ORDERED: HYDROcodone-ACET 5/325MG TAB PO PRN (18:45)
[2021-10-22] MEDS ORDERED: ALUM & MAG HYDROX-SIMETH LIQ(MAALOX) 30 ML PO PRN (18:45)
[2021-10-22 19:30] LABS: % Iron Saturation 8.5 % (15-50)
[2021-10-22 19:35] LABS: Cholesterol 177 mg/dL (< 200); HDL Cholesterol 81 mg/dL (40-59); LDL Cholesterol 65 mg/dL (< 100); Triglycerides 91 mg/dL (< 150)
[2021-10-22] MEDS: INSULIN LANTUS (GLARGINE) 1 /0.01ml (100units/ml) SC SCH (22:00)
[2021-10-22] MEDS ORDERED: IPRATROPIUM BROM 0.5 MG/2.5ML INH SOL NEB SCH (22:00)
[2021-10-22] MEDS: GABAPENTIN 100 MG CAP PO SCH (23:38)
[2021-10-22] MEDS: busPIRone HCL 10 MG TAB PO SCH (23:39)
[2021-10-22] MEDS: ATORVASTATIN 20 MG TAB PO SCH (23:39)
[2021-10-23] MEDS: ACCU-CHEK COMFORT CURVE STRIP VI SCH ×7 (00:02→23:57)
[2021-10-23] MEDS: InsuLIN REG 1unit/0.01ml Soln (100units/ml) SC SCH ×7 (04:00→23:58)
[2021-10-23] MEDS: INSULIN LANTUS (GLARGINE) 1 /0.01ml (100units/ml) SC SCH ×2 (07:30→21:35)
[2021-10-23 10:08] LABS: Basophils # (auto) 0 10 ^3/uL (0-0.2); Basophils % (auto) 0.2 % (0.0-2.0); Eosinophils # (auto) 0.1 10 ^3/uL (0-0.8); Eosinophils % (auto) 1.6 % (0.0-7.0); Hematocrit 27.4 % (36.0-46.0); Hemoglobin 9.5 g/dL (12.2-16.2); Lymphocytes # (auto) 1.3 10 ^3/uL (0.4-5.4); Lymphocytes % (auto) 16.7 % (10.0-50.0); Mean Corpuscular Hemoglobin 31.3 pg (28.0-32.0); Mean Corpuscular Hgb Conc. 34.5 g/dL (32.0-36.0); Mean Corpuscular Volume 90.7 fL (80.0-100.0); Monocytes # (auto) 0.8 10 ^3/uL (0-1.3); Monocytes % (auto) 10.1 % (0.0-12.0); Neutrophils # (auto) 5.6 10 ^3/uL (1.6-8.6); Neutrophils % (auto) 71.4 % (37.0-80.0); Nucleated Red Blood Cells % 0.1 %; Red Blood Cells 3.03 10^6/uL (4.0-5.20); White Blood Cell 7.8 10^3/uL (4.4-10.8)
[2021-10-23 10:11] LABS: Albumin 1.7 g/dL (3.4-5.0); Calcium 7.1 mg/dL (8.5-10.1); Magnesium 1.8 mg/dL (1.6-2.6); Potassium 3.8 mmol/L (3.5-5.1); Uric Acid 2.6 mg/dL (2.6-6.0)
[2021-10-23 10:19] LABS: BUN/Creatinine Ratio 12.1; Bilirubin, Total 0.3 mg/dL (0.2-1.0); Phosphorus 2.7 mg/dL (2.5-4.90); Total Protein 4.4 g/dL (6.4-8.2)
[2021-10-23] MEDS: levoFLOXacin 500MG 100 ML IV SCH (10:28)
[2021-10-23 10:31] LABS: Folate (Folic Acid) 8.71 ng/mL (5.38-24)
[2021-10-23] MEDS: ASPirin 81 mg TAB PO SCH (10:55)
[2021-10-23] MEDS: busPIRone HCL 10 MG TAB PO SCH ×2 (10:55→21:22)
[2021-10-23] MEDS: GABAPENTIN 100 MG CAP PO SCH ×2 (10:55→21:22)
[2021-10-23] MEDS: ENOXAPARIN SOD 40 MG/0.4 ML SYRINGE SC SCH ×2 (10:55→21:23)
[2021-10-23] MEDS: PANTOPRAZOLE 40 MG/10 ML VIAL INJ IV SCH (11:17)
[2021-10-23] MEDS: CHOLECALCIFEROL (VITD3) 2,000 UNIT CAP/TAB PO SCH (11:17)
[2021-10-23 11:23] LABS: INR 1.05 (0.9-1.15); Partial Thromboplastin Time 20.9 sec (23.6-33.0)
[2021-10-23] MEDS ORDERED: CLOT1CRE13 TOP (14:58)
[2021-10-23] MEDS ORDERED: PSEU1TAB PO (14:58)
[2021-10-23 16:01] VITALS: BP 104/68
[2021-10-23] MEDS: ATORVASTATIN 20 MG TAB PO SCH (21:22)
[2021-10-24] MEDS: InsuLIN REG 1unit/0.01ml Soln (100units/ml) SC SCH ×3 (04:00→12:00)
[2021-10-24] MEDS ORDERED: DEXTROSE (50%) 50ML SYRG IV PRN (04:15)
[2021-10-24] MEDS: ACCU-CHEK COMFORT CURVE STRIP VI SCH ×3 (04:26→12:05)
[2021-10-24] MEDS ORDERED: DEXTROSE 50% SYRINGE 50 ML IV ONE (04:30)
[2021-10-24] MEDS: INSULIN LANTUS (GLARGINE) 1 /0.01ml (100units/ml) SC SCH (06:18)
[2021-10-24 08:00] VITALS: BP 114/75
[2021-10-24] MEDS: GABAPENTIN 100 MG CAP PO SCH (08:28)
[2021-10-24] MEDS: ENOXAPARIN SOD 40 MG/0.4 ML SYRINGE SC SCH (08:28)
[2021-10-24] MEDS: CHOLECALCIFEROL (VITD3) 2,000 UNIT CAP/TAB PO SCH (08:28)
[2021-10-24] MEDS: levoFLOXacin 500MG 100 ML IV SCH (08:29)
[2021-10-24] MEDS: busPIRone HCL 10 MG TAB PO SCH (08:29)
[2021-10-24] MEDS: ASPirin 81 mg TAB PO SCH (08:29)
[2021-10-24 11:11] VITALS: BP 114/75
[2021-10-24] MEDS: PANTOPRAZOLE 40 MG/10 ML VIAL INJ IV SCH (12:13)
== END 2021-10-24 13:24 | disposition home or self-care (01) | DRG 720 ==
LOC: EDBD 09:56 → ER 09:56 → OVERFLOW 14:41 → EAST 10-23 11:42
PROVIDERS: ADMIT Hospitalist; ATTEND Family Medicine
PROC: 05HF33Z Insertion of Infusion Device into Left Cephalic Vein, Percutaneous Approach (ICD-10-PCS; principal; 2021-10-22)
PROC: B54NZZA Ultrasonography of Left Upper Extremity Veins, Guidance (ICD-10-PCS; 2021-10-22)
DX: A41.9 Sepsis, unspecified organism (principal); G93.41 Metabolic encephalopathy; E43 Unspecified severe protein-calorie malnutrition; R64 Cachexia; E11.649 Type 2 diabetes mellitus with hypoglycemia without coma; E11.21 Type 2 diabetes mellitus with diabetic nephropathy; D64.9 Anemia, unspecified; E11.40 Type 2 diabetes mellitus with diabetic neuropathy, unspecified; U09.9 Post COVID-19 condition, unspecified; E11.65 Type 2 diabetes mellitus with hyperglycemia; N39.0 Urinary tract infection, site not specified; E87.6 Hypokalemia; K21.9 Gastro-esophageal reflux disease without esophagitis; K29.70 Gastritis, unspecified, without bleeding; E78.00 Pure hypercholesterolemia, unspecified; E78.5 Hyperlipidemia, unspecified; F41.9 Anxiety disorder, unspecified; Z87.01 Personal history of pneumonia (recurrent); Z79.899 Other long term (current) drug therapy; Z20.822 Contact with and (suspected) exposure to COVID-19; Z68.23 Body mass index [BMI] 23.0-23.9, adult; Z79.4 Long term (current) use of insulin
CPT/HCPCS: 36415; 70450; 71045; 80053; 80061; 82607; 82746; 82962; 83540; 83550; 83735; 83880; 84100; 84443; 84484; 84550; 85025; 85379; 85610; 85730; 87040; 87081; 87426; 93005; 96361; 96374; 99291; C9113; G0378; J1815; J1956

== ENCOUNTER 2025-02-04 14:04 | Inpatient (IN) | payer MEDICAID, OTHER ==
[~2025-02-04] VITALS: Ht 165.1 cm; Wt 54.2 kg
[~2025-02-04 14:04] MED LIST changes: -CLOT1CRE13 TOP; +CLOT1CRE51 TOP; +GABA-1308 PO; -GABA100C9 PO; -PSEU120T43 PO; +PSEU1TAB PO
--- NOTE | 2025-02-04 14:42 | ECG ---
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
[2025-02-04 15:08] LABS: Basophils # (auto) 0.1 10 ^3/uL (0-0.2); Eosinophils # (auto) 0 10 ^3/uL (0-0.8); Monocytes # (auto) 0.2 10 ^3/uL (0-1.3); White Blood Cell 12.2 10^3/uL (4.4-10.8)
[2025-02-04 15:09] LABS: Basophils % (auto) 0.6 % (0.0-2.0); Hematocrit 51.8 % (36.0-46.0); Hemoglobin 16.9 g/dL (12.2-16.2); Lymphocytes # (auto) 1.7 10 ^3/uL (0.4-5.4); Lymphocytes % (auto) 13.5 % (10.0-50.0); Mean Corpuscular Hemoglobin 28.4 pg (28.0-32.0); Mean Corpuscular Hgb Conc. 32.7 g/dL (32.0-36.0); Monocytes % (auto) 1.7 % (0.0-12.0); Neutrophils # (auto) 10.3 10 ^3/uL (1.6-8.6); Neutrophils % (auto) 84.2 % (37.0-80.0); Nucleated Red Blood Cells % 0.4 %; Platelet Count (auto) 391 10^3/uL (140-450); Red Blood Cells 5.96 10^6/uL (4.0-5.20); Red Cell Distribution Width 14.4 % (11.8-14.3)
--- NOTE | 2025-02-04 15:13 | DVH ---
EXAM: XY CHEST PORTABLE HISTORY: cp COMPARISON: CHEST PORTABLE on DOS: 10/22/21, CHEST PORTABLE on DOS: 10/13/21, CHEST PORTABLE on DOS: TECHNIQUE: Portable upright AP view of the chest was performed. FINDINGS: No pneumothorax, consolidative infiltrates, or pulmonary edema. The heart is not enlarged. IMPRESSION: No acute intrathoracic process.
[2025-02-04 15:17] LABS: Alanine Aminotransferase 32 U/L (7-40); Alkaline Phosphatase 101 U/L (46-116); Anion Gap 30.00001 (5-15); Aspartate Aminotransferase 23 U/L (13-40); BUN/Creatinine Ratio 21.9 (10.0-20.0); Bilirubin, Total 0.7 mg/dL (0.2-1.0); Potassium 4.9 mmol/L (3.5-5.1); Total Protein 8.1 g/dL (5.7-8.2)
[2025-02-04 15:18] LABS: Albumin 5.3 g/dL (3.2-4.8); Blood Urea Nitrogen 33 mg/dL (9-23); Calcium 10.8 mg/dL (8.7-10.4); Chloride 95 mmol/L (98-107); Sodium 135 mmol/L (136-145)
[2025-02-04 15:19] LABS: Carbon Dioxide < 10 mmol/L (20-31)
[2025-02-04 15:20] LABS: Glucose 478 mg/dL (74-106)
[2025-02-04 15:29] LABS: Lipase 47 U/L (12-53)
[2025-02-04] MEDS ORDERED: DEXTROSE (50%) 50ML SYRG IV PRN (15:30)
[2025-02-04 15:43] VITALS: PULSE 130; RESP 25; O2SAT 97
[2025-02-04 15:55] LABS: Urine Bacteria FEW /hpf (None Seen); Urine Blood Negative /uL (Negative); Urine Budding Yeast MODERATE /hpf (None Seen); Urine Clarity Clear (Clear); Urine Color Light-Yellow (Yellow); Urine Protein, UAD Negative (Negative); Urine Specific Gravity 1.024 (1.001-1.035); Urine Squamous Epithelial Cell FEW /hpf (<5); Urine Urobilinogen Normal (Negative); Urine WBC 5 /HPF (0-5)
[2025-02-04] MEDS: InsuLIN REG 1unit/0.01ml Soln (100units/ml) IV ONE (16:14)
[2025-02-04] MEDS: NITROGLYCERIN 0.2MG/HR TOPICAL PATCH TD ONE (16:14)
[2025-02-04] MEDS: ONDANSETRON HCL 4 MG/2 ML VIAL IV ONE (16:15)
[2025-02-04] MEDS: SODIUM CHLORIDE 0.9% 1,000 ML IV SCH ×2 (16:15→20:30)
[2025-02-04] MEDS: SODIUM CHLORIDE 0.9% 2,000 ML IV ONE (16:15)
[2025-02-04] MEDS: INSULIN DRIP 100 UNIT/100ML 100 ML IV SCH (16:20)
[2025-02-04] MEDS: INSULIN LANTUS (GLARGINE) 1 /0.01ml (100units/ml) SC ONE (16:20)
[2025-02-04] MEDS: MORPHINE SULFATE INJ 2 MG/ml SYRG IV ONE (16:21)
[2025-02-04] MEDS: ASPirin 325 MG TAB PO ONE (16:21)
[2025-02-04] MEDS: ACCU-CHEK COMFORT CURVE STRIP VI SCH (16:30)
[2025-02-04 16:33] LABS: Magnesium 2.9 mg/dL (1.6-2.6)
[2025-02-04 16:34] LABS: Phosphorus 8.4 mg/dL (2.4-5.1)
--- NOTE | 2025-02-04 16:41 | ED.PDOC ---
History of present illness HPI Comments 59-year-old female with PMHx DM brought in by nephew presents with a chief complaint of hyperglycemia x 1 hour with associated nausea, vomiting, abdominal pain, and dysuria. Patient is actively vomiting during assessment and states that she has been compliant with all her diabetes medication. Patient states she initially had chest pain radiating to both upper extremities, however this has resolved. Patient states that her pain is localized to her diffuse abdomen, nonradiating, and also reports the patient and dysuria. Patient speaks [place]ian and nephew at bedside is translating for patient. Chief Complaint: Hyperglycemia Time Seen by MD: 15:54 Primary Care Provider: UNKNOWN History of present illness: Medications, Allergies Allergies: Coded Allergies: NO KNOWN ALLERGIES (Unverified , 10/08/21) Home Meds Active Scripts Ascorbic Acid (VITAMIN C) 500 Mg Cap, 500 MG PO DAILY, #15 CAP Prov:NILO SCOTT MD 10/19/21 Zinc Sulfate (Zinc) 220 Mg Cap, 220 MG PO DAILY, #15 CAP Prov:NILO SCOTT MD 10/19/21 Reported Medications Clotrimazole (Clotrimazole) 1 % Cre, 1 APPLIC TOP Q12HR for 30 Days, APPLIC 10/23/21 Pseudoephedrine (Sm Nasal Decongestant) 120 Mg Tab, 60 MG PO TID, TAB 10/23/21 Omeprazole (Gnp Omeprazole) 20 Mg Tab, 2 TAB PO DAILY, #30 TAB 3 Refills PATIENT TAKES 40MG PRESCRIPTION DOSE 10/17/21 Buspirone HCl (Buspirone HCl) 10 Mg Tab, 10 MG PO BID, TAB 10/17/21 Insulin Glargine (Lantus) 100 Unit/Ml Inj, 33 UNIT SC HS, INJ 10/17/21 Gabapentin (Gabapentin) 100 Mg Cap, 100 MG PO BID for 30 Days, MG 10/17/21 Metformin Hydrochloride (Metformin Hcl) 500 Mg Tab, 1000 MG PO IBID for 30 Days, MG 10/17/21 Information Source: Patient, Relative Mode of Arrival: Ambulatory Timing: Hours Duration: Since onset Prehospital treatment: None History of: Diabetes Past Medical History PAST MEDICAL HISTORY: DM Surgical History: Denies all surgeries [employer] History: Denies all [employer] ME[employer]IC Hx Family History Family History: Reviewed,noncontributory to illness Social History Smoker: Non-Smoker Alcohol: Denies ETOH Use Drugs: Denies Drug Use Lives In: Home Constitutional: denies: chills, diaphoresis, fatigue, fever, malaise, sweats, weakness, others EENTM: denies: blurred vision, double vision, ear bleeding, ear discharge, ear drainage, ear pain, ear ringing, eye pain, eye redness, hearing loss, mouth pain, mouth swelling, nasal discharge, nose bleeding, nose congestion, nose pain, photophobia, tearing, throat pain, throat swelling, voice changes, others Respiratory: denies: cough, hemoptysis, orthopnea, SOB at rest, shortness of breath, SOB with excertion, stridor, wheezing, others Cardiovascular: denies: chest pain, dizzy spells, diaphoresis, Dyspnea on exertion, edema, irregular heart beat, left arm pain, lightheadedness, palpitations, PND, syncope, others Gastrointestinal: reports: abdominal pain, constipated, nausea, vomiting; denies: abdomen distended, blood streaked bowels, diarrhea, dysphagia, difficulty swallowing, hematemesis, melena, poor appetite, poor fluid intake, rectal bleeding, rectal pain, others Genitourinary: denies: abnormal vagina bleeding, burning, dyspareunia, dysuria, flank pain, frequency, hematuria, incontinence, pain, , vagina discharge, urgency, others Neurological: denies: dizziness, fainting, headache, left sided numbness, left sided weakness, numbness, paresthesia, pre-existing deficit, right sided numbness, right sided weakness, seizure, speech problems, tingling, tremors, weakness, others Musculoskeletal: denies: back pain, gout, joint pain, joint swelling, muscle pain, muscle stiffness, neck pain, others Integumetry: denies: bruises, change in color, change in hair/nails, dryness, laceration, lesions, lumps, rash, wounds, others Allergic/Immunocompromised: denies: Difficulty Healing, Frequent Infections, Hives, Itching, others Hematologic/Lymphatic: denies: anemia, blood clots, easy bleeding, easy bruising, swollen glands, others Endocrine: denies: excessive hunger, excessive sweating, excessive thirst, excessive urination, flushing, intolerance to cold, intolerance to heat, unexplained weight gain, unexplained weight loss, others Psychiatric: denies: anxiety, bipolar disorder, depression, hopeless, panic disorder, schizophrenia, sleepless, suicidal, others All Other Systems: Reviewed and Negative Physical Exam General Appearance: Mild Distress, Other (Ill-appearing) HEENT: Other (Pupils and face symmetric. Moist mucous membranes.) Neck: Full Range of Motion, Normal Inspection Respiratory: Lungs Clear, No Accessory Muscle Use, No Respiratory Distress, Normal Breath Sounds Cardiovascular: No Edema, No JVD, Tachycardia Breast Exam: Deferred Gastrointestinal: Non Tender, Soft Genitalia: Deferred Pelvic: Deferred Rectal: Deferred Extremities: Normal inspection, Normal range of motion, Non-tender, No pedal edema Neurologic: Alert (Oriented x4), Normal Affect, Normal Mood, Other (Amb ulatory.) Cerebellar Function: NOT DONE Reflexes: NOT DONE Skin: Dry, Normal Color, Warm Lymphatic: NOT DONE Was a procedure done? Was a procedure done?: No Differential Diagnosis (DM) Differential Diagnosis: Dehydration, DKA, Electrolyte Abnormality, Gastritis, Gastroenteritis, Hyperglycemia, Hyperosmolar State, UTI Other Differential Diagnosis Sepsis, among others X-Ray, Labs, Meds, VS Vital Signs Date Time Temp Pulse Resp B/P (MAP) Pulse Ox O2 Delivery O2 Flow Rate FiO2 02/04/25 19:30 99.0 99.0 02/04/25 19:00 112 26 106/51 (69) 98 02/04/25 18:45 112 15 116/56 (76) 98 02/04/25 18:00 121 20 110/58 (75) 97 02/04/25 17:10 128 19 108/58 (75) 96 02/04/25 16:40 130 24 130/65 (86) 98 02/04/25 15:43 130 25 97 Room Air* 0 21 02/04/25 15:41 98.4 130 24 130/65 (86) 98 98.4 02/04/25 14:29 139 02/04/25 14:27 98.3 144 20 131/70 (90) 100 98.3 Lab Test 02/04/25 19:36 02/04/25 18:05 02/04/25 17:30 02/04/25 16:08 Range/Units Sodium Level Pending Potassium Level Pending Chloride Level Pending Carbon Dioxide Level Pending Anion Gap Pending Blood Urea Nitrogen Pending Creatinine Pending Glomerular Filtration Rate Calc Pending BUN/Creatinine Ratio Pending Serum Glucose Pending Calcium Level Pending POC Glucose 176 H 471 *H 70-106 mg/dl Lactic Acid Level 2.9 *H 0.4-2.0 mmol/L Test 02/04/25 16:01 02/04/25 15:23 02/04/25 15:20 02/04/25 15:10 Range/Units Serum Osmolality 334 H 278-298 mOsm/kg Phosphorus Level 8.4 H 2.4-5.1 mg/dL Magnesium Level 2.9 H 1.6-2.6 mg/dL Beta-Hydroxybutyric Acid > 4.500 H < 0.4 mmol/L Lactic Acid Level 3.0 *H 0.4-2.0 mmol/L Troponin I High Sensitivity 4 </=34 ng/L Urine Color Light-yellow Yellow Urine Clarity Clear Clear Urine pH 5.0 5.0-9.0 Urine Specific [place] 1.024 1.001-1.035 Urine Protein Negative Negative Urine Ketones 4+ H Negative Urine Blood Negative Negative /uL Urine Nitrite Negative Negative Urine Bilirubin Negative Negative Urine Urobilinogen Normal Negative mg/dL Urine Leukocyte Esterase Trace Negative /uL Urine RBC 6 0 - 4 /hpf Urine Microscopic WBC 5 0-5 /HPF Urine Squamous Epithelial Cells Few <5 /hpf Urine Bacteria Few H None Seen /hpf Urine Yeast (Budding) Moderate None Seen /hpf Urine Glucose 4+ H Normal mg/dL Test 02/04/25 15:00 02/04/25 14:40 02/04/25 14:16 02/04/25 14:14 Range/Units Blood Gas Specimen Type Arterial Blood Gas Sample Site Right radial Blood Gas Patient Temperature 37.0 Arterial Blood Date Drawn [id number] Arterial Blood pH 7.199 *L 7.350-7.450 Arterial Blood Partial Pressure CO2 15.8 *L 32.0-45.0 mmHg Arterial Blood Partial Pressure O2 102.2 83.0-108.0 mmHg Arterial Blood HCO3 6.0 L 21.0-28.0 mmol/L Arterial Blood Oxygen Saturation 97.0 94.0-98.0 % Arterial Blood Base Excess -19.2 L -2.0-3.0 mmol/L Arterial Blood Oxyhemoglobin 96.2 94.0-98.0 % Arterial Blood Carboxyhemoglobin 0.3 L 0.5-1.5 % Arterial Blood Methemoglobin 0.5 0.0-1.5 % Mikal Test Modified Blood Gas Total Hemoglobin 16.80 H 12.0-16.0 g/dL Blood Gas Modality Room air FiO2 % 21.0 Blood Gas Critical Value Read Back Yes Blood Gas Notified Whom radha Rawls md Blood Gas Notified Time [id number] Blood Gas Notified By Jennifer cassidy rrt White Blood Count 12.2 H 4.4-10.8 10^3/uL Red Blood Count 5.96 H 4.0-5.20 10^6/uL Hemoglobin 16.9 H 12.2-16.2 g/dL Hematocrit 51.8 H 36.0-46.0 % Mean Corpuscular Volume 87.0 80.0-100.0 fL Mean Corpuscular Hemoglobin 28.4 28.0-32.0 pg Mean Corpuscular Hemoglobin Concent 32.7 32.0-36.0 g/dL Red Cell Distribution Width 14.4 H 11.8-14.3 % Platelet Count 391 140-450 10^3/uL Mean Platelet Volume 9.6 6.9-10.8 fL Neutrophils (%) (Auto) 84.2 H 37.0-80.0 % Lymphocytes (%) (Auto) 13.5 10.0-50.0 % Monocytes (%) (Auto) 1.7 0.0-12.0 % Eosinophils (%) (Auto) 0.0 0.0-7.0 % Basophils (%) (Auto) 0.6 0.0-2.0 % Neutrophils # (Auto) 10.3 H 1.6-8.6 10 ^3/uL Lymphocytes # (Auto) 1.7 0.4-5.4 10 ^3/uL Monocytes # (Auto) 0.2 0-1.3 10 ^3/uL Eosinophils # (Auto) 0 0-0.8 10 ^3/uL Basophils # (Auto) 0.1 0-0.2 10 ^3/uL Nucleated Red Blood Cells 0.4 % Sodium Level 135 L 136-145 mmol/L Potassium Level 4.9 3.5-5.1 mmol/L Chloride Level 95 L 98-107 mmol/L Carbon Dioxide Level < 10 *L 20-31 mmol/L Anion Gap 30.63244 H 5-15 Blood Urea Nitrogen 33 H 9-23 mg/dL Creatinine 1.51 H 0.550-1.02 mg/dL Glomerular Filtration Rate Calc 39 >90 mL/min BUN/Creatinine Ratio 21.9 H 10.0-20.0 Serum Glucose 478 *H 74-106 mg/dL Calcium Level 10.8 H 8.7-10.4 mg/dL Total Bilirubin 0.7 0.2-1.0 mg/dL Aspartate Amino Transferase (AST) 23 13-40 U/L Alanine Aminotransferase (ALT) 32 7-40 U/L Alkaline Phosphatase 101 46-116 U/L Troponin I High Sensitivity 4 </=34 ng/L B-Type Natriuretic Peptide 16.27 0-100 pg/mL Total Protein 8.1 5.7-8.2 g/dL Albumin 5.3 H 3.2-4.8 g/dL Lipase 47 12-53 U/L POC Glucose 430 *H 471 *H 70-106 mg/dl Current Medications Medications (Trade) Dose Ordered Sig/Lex Route Start Time Stop Time Status Last Admin Sodium Chloride 2,000 ml @ 1,000 mls/hr Q2H ONCE IV 02/04/25 15:00 02/04/25 16:59 DC 02/04/25 16:15 Ondansetron HCl (Zofran) 4 mg ONCE ONCE IV 02/04/25 15:00 02/04/25 15:01 DC 02/04/25 16:15 Insulin Human (Reg)/Sodium Chloride 100 ml @ 0.5 mls/hr Q24H IV 02/04/25 15:30 02/04/25 16:20 Diagnostic Test (Pha) (Accu-Chek Comfort Curve T) 1 strip Q90MIN 02/04/25 16:30 02/04/25 18:07 Insulin Glargine (Lantus) 15 units ONCE ONCE SC 02/04/25 15:30 02/04/25 15:31 DC 02/04/25 16:20 Dextrose/Sodium Chloride 1,000 ml @ 150 mls/hr Q6H40M ONCE IV 02/04/25 19:00 02/05/25 01:39 02/04/25 19:03 PROCEDURE(s): CXRP - CHEST PORTABLE REASON: cp ORDER NUMBER(s): [id number], ACCESSION NUMBER(s): [id number] EXAM: XY CHEST PORTABLE HISTORY: cp COMPARISON: CHEST PORTABLE on DOS: 10/22/21, CHEST PORTABLE on DOS: 10/13/21, CHEST PORTABLE on DOS: 10/10/21 TECHNIQUE: Portable upright AP view of the chest was performed. FINDINGS: No pneumothorax, consolidative infiltrates, or pulmonary edema. The heart is not enlarged. IMPRESSION: No acute intrathoracic process. X-Ray, Labs, Meds, VS Comment 59-year-old female with a history of diabetes presenting with abdominal pain, nausea, vomiting and hyperglycemia Vitals remarkable for heart rate 130, respiratory rate 24 Exam remarkable for lower abdominal tenderness to palpation, tachypnea and tachycardia Rhythm strip independently interpreted by me: Sinus tach, rate 130, no ectopy. Chest x-ray unremarkable CT abdomen and pelvis pending CBC remarkable for WBC 12.2, metabolic panel remarkable for sodium 135, chloride 95, CO2 less than 10, BUN 33, creatinine 1.51, glucose 478, lactate 3, 2.9 on repeat, beta hydroxybutyrate greater than 4.5, UTI abnormal consistent with UTI with bacteria and yeast ABG pH 7.19, pCO2 15.8, bicarb 6 Time of 1ST Reevaluation: 16:24 Reevaluation 1ST: Unchanged Patient Education/Counseling: Diagnosis, Treatment Family Education/Counseling: No Family Present Departure 1 Departure Time of Disposition: 19:00 Impression: Primary Impression: DKA (diabetic ketoacidosis) Qualified Codes: E13.10 - Other specified diabetes mellitus with ketoacidosis without coma Disposition: ADMITTED INPATIENT Admit to: [facility] Condition: Guarded Critical Care Note Critical Care Time?: Yes (45 min-critical care time only) Critical care comment: Critical care time including multiple bedside re-evaluations, review of lab and imaging studies, and discussion of the case with the admitting provider. Patient is high risk for metabolic decompensation. Stability Stability form required: No Heart Score Heart Score: Heart Score Response (Comments) Value History N/A 0 EKG N/A 0 Age N/A 0 Risk Factors N/A 0 Troponin N/A 0 Total 0 I personally scribed for DYLLAN RAWLS MD ([facility] on 02/04/25 at 16:41. Electronically submitted by Malcolm Carter ([email or web address]). I personally scribed for DYLLAN RAWLS MD ([email or web address]) on 02/04/25 at 16:41. Electronically submitted by Malcolm Carter ([email or web address]). DYLLAN RAWLS MD February 04, 2025 16:41
[2025-02-04 17:01] LABS: Base Excess -19.2 mmol/L (-2.0-3.0)
[2025-02-04] MEDS: D5W/SOD CHLO 0.9% 1,000 ML IV ONE (19:03)
[2025-02-04 19:30] VITALS: PULSE 112; RESP 26; O2SAT 98
[2025-02-04] MEDS ORDERED: ACETAMINOPHEN 325 MG TAB PO PRN (20:00)
[2025-02-04] MEDS ORDERED: DOCUSATE SOD 100 MG CAP PO PRN (20:00)
[2025-02-04] MEDS ORDERED: HYDROcodone-ACET 5/325MG TAB PO PRN (20:00)
[2025-02-04] MEDS ORDERED: ONDANSETRON HCL 4 MG/2 ML VIAL IV PRN (20:00)
[2025-02-04] MEDS ORDERED: CEFEPIME 1GM/ 50ML 50 ML IV ONE (20:00)
--- NOTE | 2025-02-04 20:21 | DVH ---
Exam: CT CT AB PEL WO CON-NO ORAL OR IV History: low abd pain, n/v Comparison Study: None Technique: Multidetector spiral CT of the abdomen was performed from lung bases to pubic symphysis. Imaging was performed without IV contrast. Axial, coronal and sagittal multiplanar reformats were ob tained from the axial data set by the technologist. Radiation Dose : 1. Abdomen/Pelvis: CTDIvol 5.33 mGy, DLP 267.24 mGy*cm. Findings: Evaluation of solid organs is limited due to lack of intravenous contrast use. Lung Bases: No acute or significant lung base finding. Normal heart size. No pleural or pericardial effusion. Liver: The liver is normal in size. No focal lesions. Gallbladder and Biliary Tree: Unremarkable Spleen: Unremarkable Pancreas: The pancreas is grossly normal in appearance. Adrenal Glands: Unremarkable Kidneys: Kidneys are grossly normal without calculi or hydronephrosis. Bladder: Grossly unremarkable for degree of distention. Bowel: The stomach is grossly normal in appearance. Small bowel and colon are normal in caliber and d istribution. The appendix is not visualized; however, no secondary findings of acute appendicitis id entified. Moderate to large colonic stool burden. Ascites: Absent Lymphadenopathy: No mesenteric, retroperitoneal or periportal lymphadenopathy. Abdominal Wall and Mesentery: Unremarkable. Vasculature: The visualized abdominal aorta is normal in size and caliber. Evaluation of abdominal a nd pelvic vessels is limited due to lack of intravenous contrast. Pelvic Organs: Unremarkable Musculoskeletal: No aggressive focal bony lesions, acute fractures or dislocation. Mild chronic compr ession deformity of the T11 and T12 vertebral bodies IMPRESSION: 1. No acute abdominal or pelvic findings. 2. Moderate to large colonic stool burden. Radiation optimization: All CT scans at this facility use at least one of these dose optimization ortiz hniques: automated exposure control mA and/or kV adjustment per patient size (includes targeted exam s where dose is matched to clinical indication) or iterative reconstruction.
[2025-02-04 20:35] VITALS: PULSE 109; RESP 22; O2SAT 98
[2025-02-04 20:43] LABS: Potassium 4.2 mmol/L (3.5-5.1); Sodium 145 mmol/L (136-145)
[2025-02-04 20:44] LABS: Anion Gap 22 (5-15); Calcium 8.7 mg/dL (8.7-10.4)
[2025-02-04 20:48] LABS: Carbon Dioxide 14 mmol/L (20-31); Chloride 109 mmol/L (98-107)
[2025-02-04] MEDS: LINEZOLID 600MG/300ML 300 ML IV ONE (20:48)
[2025-02-04 20:49] LABS: BUN/Creatinine Ratio 22.4 (10.0-20.0); Blood Urea Nitrogen 24 mg/dL (9-23); Glucose 103 mg/dL (74-106)
--- NOTE | 2025-02-04 21:25 | DVHHP2 ---
History of Present Illness Reason for Visit: DKA (diabetic ketoacidosis) History of Present Illness The patient is a 59-year-old female with past medical history of diabetes mellitus who presented to [facility] for evaluation of elevated blood sugar. Patient's symptoms progressively get worse with abdominal pain, nausea, vomiting, getting worse that prompted this visit. Patient was seen and evaluated in the ED, speaks [place] Island[place] and nephew at bedside is translating for patient. Laboratory data shows WBC 12.2, hemoglobin 16.9, hematocrit 51.8, platelets 391, sodium 135, potassium 4.9, BUN 33, creatinine 1.51, glucose 478, anion gap 30, acetone > 4.500, calcium 10.8, lactic acid 3.0 trending down to 2.9, phos 8.4, magnesium 2.9, BNP 16.27, blood pressure 106/51, heart rate 144 trending down to 112, temperature 99.0 F, O2 saturation 98% on oxygen. Patient was started on insulin drip, please see medication orders section in the computer. On my assessment, patient denied chest pain, no headache, no dizziness, no diaphoresis, no shortness of breath, no nausea or vomiting at this moment, no fever, no chills. Patient was admitted for further evaluation and medical management. Past Medical History DM Past Surgical History Denies all surgeries Family History Reviewed, noncontributory to the management of this case. Past Social History The patient lives at home, denies smoking, alcohol or illicit drugs abuse. Review of Systems Constitutional: Yes: Weakness; No: Fever, Chills, Sweats, Malaise, Other Eyes: No: Pain, Vision change, Conjunctivae inflammation, Eyelid inflammation, Other, Redness ENT: No: Ear pain, Ear discharge, Nose pain, Nose discharge, Nose congestion, Mouth pain, Mouth swelling, Throat pain, Throat swelling, Other Respiratory: No: Cough, Dry, Shortness of breath, SOB with excertion, Wheezing, Hemoptysis, Pleuritic Pain, Sputum, Wheezing, Other Cardiovascular: No: Chest Pain, Palpitations, Orthopnea, Paroxysmal Noc. Dyspnea, Edema, Lt Headedness, Other Gastrointestinal: Nausea, Vomiting, Abdominal Pain, Constipation; No: Diarrhea, Melena, Hematochezia, Other Genitourinary: No Dysuria, No Frequency, No Incontinence, No Hematuria, No Retention, No Other Musculoskeletal: No: other, neck pain, shoulder pain, arm pain, back pain, hand pain, leg pain, foot pain Skin: No: Rash, Lesions, Jaundice, Bruising, Other Neurological: No: Weakness, Numbness, Incoordination, Change in speech, Confusion, Seizures, Other Allergies: Coded Allergies: NO KNOWN ALLERGIES (Unverified , 10/08/21) Medications Current Medications Medications Dose Ordered Sig/Lex Route Start Time Stop Time Status Last Admin Dose Admin Sodium Chloride 1,000 ml @ 250 mls/hr Q4H IV 02/04/25 19:30 02/04/25 21:29 Sodium Chloride 1,000 ml @ 150 mls/hr Q6H40M IV 02/04/25 21:30 Insulin Human (Reg)/Sodium Chloride 100 ml @ 0.5 mls/hr Q24H IV 02/04/25 15:30 02/04/25 16:20 6 MLS/HR Dextrose 50 ml UD PRN IV 02/04/25 15:30 Diagnostic Test (Pha) 1 strip Q90MIN 02/04/25 16:30 02/04/25 19:37 1 STRIP Insulin Glargine 15 units DAILY SC 02/05/25 10:00 Famotidine 20 mg DAILY IV 02/05/25 10:00 Acetaminophen/ Hydrocodone Bitart 1 tab Q4HP PRN PO 02/04/25 20:00 Ondansetron HCl 4 mg Q4HP PRN IV 02/04/25 20:00 Docusate Sodium 100 mg BIDPRN PRN PO 02/04/25 20:00 Acetaminophen 650 mg Q6HP PRN PO 02/04/25 20:00 Exam Vital Signs Vital Signs Date Time Temp Pulse Resp B/P (MAP) Pulse Ox O2 Delivery O2 Flow Rate FiO2 02/04/25 19:30 112 26 98 Room Air* 0 21 02/04/25 19:30 99.0 99.0 02/04/25 19:00 106/51 (69) General Appearance: Alert, Oriented X3, Cooperative, No acute distress HEENT: Atraumatic, PERRLA, EOMI, Mucous membr. moist/pink Respiratory: Clear to auscultation, Normal air movement Cardiovascular: Regular rate, Normal S1, Normal S2, No murmurs Abdominal: Normal bowel sounds, Soft, No tenderness, No hepatospenomegaly, No masses Extremities: No clubbing, No cyanosis, No edema, Normal pulses, No tenderness/swelling Skin: No rashes, No breakdown, No significant lesion Neuro: Normal speech, Normal tone, Sensation intact, Cranial nerves 3-12 NL, Reflexes 2+, Other (Generalized weakness) Psych/Mental Status: Mental status NL, Mood NL Labs/Xrays Labs Test 02/04/25 21:03 02/04/25 20:04 02/04/25 17:30 02/04/25 16:01 Range/Units POC Glucose 87 70-106 mg/dl Sodium Level 145 # 136-145 mmol/L Potassium Level 4.2 3.5-5.1 mmol/L Chloride Level 109 #H 98-107 mmol/L Carbon Dioxide Level 14 L 20-31 mmol/L Anion Gap 22 H 5-15 Blood Urea Nitrogen 24 H 9-23 mg/dL Creatinine 1.07 H 0.550-1.02 mg/dL Glomerular Filtration Rate Calc 59 >90 mL/min BUN/Creatinine Ratio 22.4 H 10.0-20.0 Serum Glucose 103 74-106 mg/dL Calcium Level 8.7 8.7-10.4 mg/dL Lactic Acid Level 2.9 *H 0.4-2.0 mmol/L Serum Osmolality 334 H 278-298 mOsm/kg Phosphorus Level 8.4 H 2.4-5.1 mg/dL Magnesium Level 2.9 H 1.6-2.6 mg/dL Beta-Hydroxybutyric Acid > 4.500 H < 0.4 mmol/L Test 02/04/25 15:20 02/04/25 15:10 02/04/25 15:00 02/04/25 14:40 Range/Units Troponin I High Sensitivity 4 </=34 ng/L Urine Color Light-yellow Yellow Urine Clarity Clear Clear Urine pH 5.0 5.0-9.0 Urine Specific [place] 1.024 1.001-1.035 Urine Protein Negative Negative Urine Ketones 4+ H Negative Urine Blood Negative Negative /uL Urine Nitrite Negative Negative Urine Bilirubin Negative Negative Urine Urobilinogen Normal Negative mg/dL Urine Leukocyte Esterase Trace Negative /uL Urine RBC 6 0 - 4 /hpf Urine Microscopic WBC 5 0-5 /HPF Urine Squamous Epithelial Cells Few <5 /hpf Urine Bacteria Few H None Seen /hpf Urine Yeast (Budding) Moderate None Seen /hpf Urine Glucose 4+ H Normal mg/dL Blood Gas Specimen Type Arterial Blood Gas Sample Site Right radial Blood Gas Patient Temperature 37.0 Arterial Blood Date Drawn Arterial Blood pH 7.199 *L 7.350-7.450 Arterial Blood Partial Pressure CO2 15.8 *L 32.0-45.0 mmHg Arterial Blood Partial Pressure O2 102.2 83.0-108.0 mmHg Arterial Blood HCO3 6.0 L 21.0-28.0 mmol/L Arterial Blood Oxygen Saturation 97.0 94.0-98.0 % Arterial Blood Base Excess -19.2 L -2.0-3.0 mmol/L Arterial Blood Oxyhemoglobin 96.2 94.0-98.0 % Arterial Blood Carboxyhemoglobin 0.3 L 0.5-1.5 % Arterial Blood Methemoglobin 0.5 0.0-1.5 % Mikal Test Modified Blood Gas Total Hemoglobin 16.80 H 12.0-16.0 g/dL Blood Gas Modality Room air FiO2 % 21.0 Blood Gas Critical Value Read Back Yes Blood Gas Notified Whom radha Rawls md Blood Gas Notified Time [id number] Blood Gas Notified By Jennifer cassidy rrt White Blood Count 12.2 H 4.4-10.8 10^3/uL Red Blood Count 5.96 H 4.0-5.20 10^6/uL Hemoglobin 16.9 H 12.2-16.2 g/dL Hematocrit 51.8 H 36.0-46.0 % Mean Corpuscular Volume 87.0 80.0-100.0 fL Mean Corpuscular Hemoglobin 28.4 28.0-32.0 pg Mean Corpuscular Hemoglobin Concent 32.7 32.0-36.0 g/dL Red Cell Distribution Width 14.4 H 11.8-14.3 % Platelet Count 391 140-450 10^3/uL Mean Platelet Volume 9.6 6.9-10.8 fL Neutrophils (%) (Auto) 84.2 H 37.0-80.0 % Lymphocytes (%) (Auto) 13.5 10.0-50.0 % Monocytes (%) (Auto) 1.7 0.0-12.0 % Eosinophils (%) (Auto) 0.0 0.0-7.0 % Basophils (%) (Auto) 0.6 0.0-2.0 % Neutrophils # (Auto) 10.3 H 1.6-8.6 10 ^3/uL Lymphocytes # (Auto) 1.7 0.4-5.4 10 ^3/uL Monocytes # (Auto) 0.2 0-1.3 10 ^3/uL Eosinophils # (Auto) 0 0-0.8 10 ^3/uL Basophils # (Auto) 0.1 0-0.2 10 ^3/uL Nucleated Red Blood Cells 0.4 % Total Bilirubin 0.7 0.2-1.0 mg/dL Aspartate Amino Transferase (AST) 23 13-40 U/L Alanine Aminotransferase (ALT) 32 7-40 U/L Alkaline Phosphatase 101 46-116 U/L B-Type Natriuretic Peptide 16.27 0-100 pg/mL Total Protein 8.1 5.7-8.2 g/dL Albumin 5.3 H 3.2-4.8 g/dL Lipase 47 12-53 U/L PATIENT: BLANCA CHAPPELLT: [id number] UNIT: [id number] : 1965 LOC: ER ROOM / BED: / AGE / SEX: 59 / F ADM STATUS: REG ER SERVICE 44 ORDERING PHYSICIAN: DYLLAN RAWLS MD PROCEDURE(s): ABPL - CT AB PEL WO CON-NO ORAL OR IV REASON: low abd pain, n/v ORDER NUMBER(s): [id number], ACCESSION NUMBER(s): [id number] Exam: CT CT AB PEL WO CON-NO ORAL OR IV History: low abd pain, n/v Comparison Study: None Technique: Multidetector spiral CT of the abdomen was performed from lung bases to pubic symphysis. Imaging was performed without IV contrast. Axial, coronal and sagittal multiplanar reformats were obtained from the axial data set by the technologist. Radiation Dose : 1. Abdomen/Pelvis: CTDIvol 5.33 mGy, DLP 267.24 mGy*cm. Findings: Evaluation of solid organs is limited due to lack of intravenous contrast use. Lung Bases: No acute or significant lung base finding. Normal heart size. No pleural or pericardial effusion. Liver: The liver is normal in size. No focal lesions. Gallbladder and Biliary Tree: Unremarkable Spleen: Unremarkable Pancreas: The pancreas is grossly normal in appearance. Adrenal Glands: Unremarkable Kidneys: Kidneys are grossly normal without calculi or hydronephrosis. Bladder: Grossly unremarkable for degree of distention. Bowel: The stomach is grossly normal in appearance. Small bowel and colon are normal in caliber and distribution. The appendix is not visualized; however, no secondary findings of acute appendicitis identified. Moderate to large colonic stool burden. Ascites: Absent Lymphadenopathy: No mesenteric, retroperitoneal or periportal lymphadenopathy. Abdominal Wall and Mesentery: Unremarkable. Vasculature: The visualized abdominal aorta is normal in size and caliber. Christine luation of abdominal and pelvic vessels is limited due to lack of intravenous contrast. Pelvic Organs: Unremarkable Musculoskeletal: No aggressive focal bony lesions, acute fractures or dislocation. Mild chronic compression deformity of the T11 and T12 vertebral bodies IMPRESSION: 1. No acute abdominal or pelvic findings. 2. Moderate to large colonic stool burden. ORDERING PHYSICIAN: DYLLAN RAWLS MD PROCEDURE(s): CXRP - CHEST PORTABLE REASON: cp ORDER NUMBER(s): [id number], ACCESSION NUMBER(s): [id number] EXAM: XY CHEST PORTABLE HISTORY: cp COMPARISON: CHEST PORTABLE on DOS: 10/22/21, CHEST PORTABLE on DOS: 10/13/21, CHEST PORTABLE on DOS: 10/10/21 TECHNIQUE: Portable upright AP view of the chest was performed. FINDINGS: No pneumothorax, consolidative infiltrates, or pulmonary edema. The heart is not enlarged. IMPRESSION: No acute intrathoracic process. Assessment/Plan Assessment/Plan DKA (diabetic ketoacidosis) Sepsis, unspecified organisms Generalized weakness Other specified diabetes mellitus with ketoacidosis without coma Plan 1. Admit to step-down unit 2. Breathing treatment 3. Pain control management 4. IV antibiotic management 5. Management of fluids and electrolytes 6. Consultation for hospitalist 7. Diagnostic test chest x-ray 8. DVT prophylaxis-on SCDs 9. Repeat labs CBC, CMP in a.m. 10. Home medication reviewed and reconciled 11. Continue with current medical management 12. Treatment plan discussed with patient and RN. Patient verbalized understanding. Plan discussed with: Patient, Other (RN) My Orders Orders - PAKO RESTREPO DNP Procedure Category Date Status Time Famotidine Injection PHA 02/05/25 In Process (Pepcid Injection) 10:00 Allergies DISHA 02/04/25 In Process 19:59 Code Status CODE 02/04/25 Transmitted 19:59 Oxygen Per Hour RT 02/04/25 Transmitted 19:59 Hydrocodone-Acet PHA 02/04/25 In Process 5/325mg Tab ([place] 20:00 Ondansetron Hcl PHA 02/04/25 In Process (Zofran) 20:00 Docusate Sodium PHA 02/04/25 In Process Capsule (Colace 20:00 Fall Risk Precautions DISHA 02/04/[address] 19:59 Complete Blood Count LAB 02/05/25 Verified 04:00 Comprehensive LAB 02/05/25 Verified Metabolic Panel 04:00 Condition: Critical DISHA 02/04/25 In Process 19:59 Acetaminophen Tablet PHA 02/04/25 In Process (Tylenol Tablet) 20:00 Maintain Bed Rest DISHA 02/04/25 In Process 19:59 Sequential DISHA 02/04/25 In Process Compression Device Consistent DIET 02/05/25 Transmitted Carb(Ccho)Diabetes Breakfast Dextrose 10% PHA 02/04/25 In Process 21:15 Communication Order ORDERS 02/04/25 Transmitted 21:15 Admit ADMIT 02/04/25 Verified 21:23 Nitroglycerin PHA 02/04/25 Verified Sublingual (Ntrostat 21:30 Morphine Sulfate PHA 02/04/25 Verified Injection 21:30 Notify Md Of Changes DISHA 02/04/25 Verified From Base 21:23 Editor Dictionary For DISHA 02/04/25 Verified 24 Hours 21:23 Problem List: (1) DKA (diabetic ketoacidosis) (2) Sepsis, unspecified organism (3) Generalized weakness (4) Other specified diabetes mellitus with ketoacidosis without coma Date of Service: February 04, 2025 Billing Provider: PAKO RESTREPO DNP Common Visit Codes: [id number] INP/OBS CARE (HIGH) PAKO RESTREPO DNP February 04, 2025 21:25
[2025-02-04] MEDS: DEXTROSE 10% 1,000 ML IV ONE (21:27)
[2025-02-04] MEDS ORDERED: SODIUM CHLORIDE 0.9% 1,000 ML IV SCH (21:30)
[2025-02-04] MEDS ORDERED: MORPHINE SULFATE INJ 2 MG/ml SYRG IV PRN (21:30)
[2025-02-04] MEDS ORDERED: NITROGLYCERIN 0.4 MG SL TAB SL PRN (21:30)
[2025-02-04] MEDS: CEFEPIME 1GM/ 50ML 50 ML IV ONE (22:48)
[2025-02-04] MEDS ORDERED: VANCOMYCIN PER PHARMACY 0 MG IV SCH (23:15)
[2025-02-05] MEDS: D5W/SOD CHL 0.45% 1,000 ML IV ONE
[2025-02-05 02:34] LABS: Potassium 3.8 mmol/L (3.5-5.1); Sodium 140 mmol/L (136-145)
[2025-02-05 02:35] LABS: Anion Gap 11 (5-15); Carbon Dioxide 21 mmol/L (20-31)
[2025-02-05 02:36] LABS: Chloride 108 mmol/L (98-107)
[2025-02-05 02:40] LABS: BUN/Creatinine Ratio 20.4 (10.0-20.0); Blood Urea Nitrogen 20 mg/dL (9-23)
[2025-02-05 02:42] LABS: Glucose 127 mg/dL (74-106)
[2025-02-05] MEDS ORDERED: DEXTROSE (50%) 50ML SYRG IV PRN (03:00)
[2025-02-05] MEDS: InsuLIN REG 1unit/0.01ml Soln (100units/ml) SC SCH (04:00)
[2025-02-05 04:13] LABS: Basophils # (auto) 0 10 ^3/uL (0-0.2); Basophils % (auto) 0.4 % (0.0-2.0); Eosinophils # (auto) 0.1 10 ^3/uL (0-0.8); Eosinophils % (auto) 0.5 % (0.0-7.0); Hematocrit 40.3 % (36.0-46.0); Hemoglobin 13.5 g/dL (12.2-16.2); Lymphocytes # (auto) 2.7 10 ^3/uL (0.4-5.4); Lymphocytes % (auto) 23.6 % (10.0-50.0); Mean Corpuscular Hemoglobin 28.3 pg (28.0-32.0); Mean Corpuscular Hgb Conc. 33.6 g/dL (32.0-36.0); Mean Corpuscular Volume 84.4 fL (80.0-100.0); Monocytes # (auto) 1.6 10 ^3/uL (0-1.3); Neutrophils % (auto) 61.5 % (37.0-80.0); Nucleated Red Blood Cells % 0.6 %; Platelet Count (auto) 294 10^3/uL (140-450); Red Blood Cells 4.78 10^6/uL (4.0-5.20); Red Cell Distribution Width 14.1 % (11.8-14.3); White Blood Cell 11.3 10^3/uL (4.4-10.8)
[2025-02-05] MEDS: CALCIUM GLUC 1,000mg/50ml-NS 50 ML IV ONE (04:14)
[2025-02-05] MEDS: ACCU-CHEK COMFORT CURVE STRIP VI SCH (04:20)
[2025-02-05 07:47] VITALS: PULSE 101; RESP 17; O2SAT 97
[2025-02-05] MEDS: cefTRIAXone 1GM/50ML D5W 50 ML IV SCH (09:13)
[2025-02-05] MEDS: FAMOTIDINE (10MG/ML) 2ML VL IV SCH (10:14)
[2025-02-05] MEDS: INSULIN LANTUS (GLARGINE) 1 /0.01ml (100units/ml) SC SCH (10:20)
[2025-02-05 11:08] VITALS: RESP 17
[2025-02-05 15:34] VITALS: RESP 17
--- NOTE | 2025-02-05 15:59 | DVHPN2 ---
Subjective in bed resting Changes from previous H/P or p: No Changes Eyes: No Pain, No Vision change, No Conjunctivae inflammation, No Eyelid inflammation, No Other, No Redness ENT: No Ear pain, No Ear discharge, No Nose pain, No Nose discharge, No Nose congestion, No Mouth pain, No Mouth swelling, No Throat pain, No Throat swelling, No Other Cardiovascular: No Chest Pain, No Palpitations, No Orthopnea, No Paroxysmal Noc. Dyspnea, No Edema, No Lt Headedness, No Other Respiratory: No Cough, No Dry, No Shortness of breath, No SOB with excertion, No Wheezing, No Hemoptysis, No Pleuritic Pain, No Sputum, No Other Gastrointestinal: Nausea, Vomiting, Abdominal Pain; No Diarrhea; Constipation; No Melena, No Hematochezia, No Other Genitourinary: No Dysuria, No Frequency, No Incontinence, No Hematuria, No Retention, No Other Musculoskeletal: No other, No neck pain, No shoulder pain, No arm pain, No back pain, No hand pain, No leg pain, No foot pain Skin: No Rash, No Lesions, No Jaundice, No Bruising, No Other Objective Vitals Vital Signs Date Time Temp Pulse Resp B/P (MAP) Pulse Ox O2 Delivery O2 Flow Rate FiO2 02/05/25 15:34 17 Room Air* 0 21 02/05/25 10:45 94 108/56 (73) 97 02/05/25 08:12 97.5 97.5 Intake/Output Intake and Output 02/05/25 07:00 Intake Total 1796.95 ml Balance 1796.95 ml Intake IV Total 1796.95 ml General Appearance: Alert, Oriented X3 Lungs: Clear to auscultation Cardiovascular: Regular rate, Normal S1, Normal S2 Medications Current Medications Medications Dose Ordered Sig/Lex Route Start Time Stop Time Status Last Admin Dose Admin Insulin Glargine 15 units DAILY SC 02/05/25 10:00 02/05/25 10:20 15 UNITS Famotidine 20 mg DAILY IV 02/05/25 10:00 02/05/25 10:14 20 MG Acetaminophen/ Hydrocodone Bitart 1 tab Q4HP PRN PO 02/04/25 20:00 Ondansetron HCl 4 mg Q4HP PRN IV 02/04/25 20:00 Docusate Sodium 100 mg BIDPRN PRN PO 02/04/25 20:00 Acetaminophen 650 mg Q6HP PRN PO 02/04/25 20:00 Nitroglycerin 0.4 mg Q5MINP PRN SL 02/04/25 21:30 Morphine Sulfate 2 mg Q30M PRN IV 02/04/25 21:30 Ceftriaxone Sodium 50 ml @ 100 mls/hr DAILY@09 IV 02/05/25 09:00 02/05/25 09:13 100 MLS/HR Vancomycin HCl 0 ml @ 0 mls/hr UD IV 02/04/25 23:15 Diagnostic Test (Pha) 1 strip IQ4HR 02/05/25 04:00 02/05/25 11:45 1 STRIP Insulin Human Regular IQ4HR SC 02/05/25 04:00 02/05/25 11:51 3 UNITS Dextrose 50 ml UD PRN IV 02/05/25 03:00 Vancomycin HCl 100 ml @ 200 mls/hr Q12H IV 02/05/25 16:00 Laboratory Results Laboratory Tests 02/05/25 03:40 Chemistry Test 02/04/25 16:01 02/04/25 20:04 02/05/25 02:05 02/05/25 03:40 Magnesium Level 2.9 mg/dL (1.6-2.6) H Phosphorus Level 8.4 mg/dL (2.4-5.1) H Calcium Level 8.7 mg/dL (8.7-10.4) 8.0 mg/dL (8.7-10.4) L Pending Albumin Pending Total Protein Pending LFT Test 02/05/25 03:40 Alanine Aminotransferase (ALT) Pending Alkaline Phosphatase Pending Aspartate Amino Transferase (AST) Pending Total Bilirubin Pending Urinalysis Test 02/04/25 15:10 Urine Color Light-yellow (Yellow) Urine Clarity Clear (Clear) Urine pH 5.0 (5.0-9.0) Urine Specific [place] 1.024 (1.001-1.035) Urine Protein Negative (Negative) Urine Ketones 4+ (Negative) H Urine Blood Negative /uL (Negative) Urine Nitrite Negative (Negative) Urine Bilirubin Negative (Negative) Urine Urobilinogen Normal mg/dL (Negative) Urine Leukocyte Esterase Trace /uL (Negative) Urine RBC 6 /hpf (0 - 4) Urine Microscopic WBC 5 /HPF (0-5) Urine Squamous Epithelial Cells Few /hpf (<5) Urine Bacteria Few /hpf (None Seen) H Urine Yeast (Budding) Moderate /hpf (None Seen) Urine Glucose 4+ mg/dL (Normal) H Assessment/Plan Assessment/Plan DKA (diabetic ketoacidosis) Sepsis, unspecified organisms Generalized weakness Other specified diabetes mellitus with ketoacidosis without coma Continue insulin Monitor BMP daily Plan discussed with: Patient Date of Service: February 05, 2025 Billing Provider: JEAN BIRD MD Common Visit Codes: [id number] INP/OBS CARE(HIGH) JEAN BIRD MD February 05, 2025 15:59
[2025-02-05 16:56] VITALS: BP 101/60; PULSE 93; RESP 17; TEMP 97.8; O2SAT 98
[2025-02-05] MEDS: VANCOMYCIN 500mg/100mL 100 ML IV SCH (17:01)
[2025-02-05 20:00] VITALS: PULSE 101; O2SAT 98
[2025-02-05 21:00] VITALS: BP 110/65; PULSE 100; RESP 16; TEMP 98.2; O2SAT 98
[2025-02-05 23:53] LABS: Anion Gap 9 (5-15)
[2025-02-05 23:58] LABS: BUN/Creatinine Ratio 22.4 (10.0-20.0)
[2025-02-06 00:03] LABS: Alanine Aminotransferase 16 U/L (7-40); Albumin 3.7 g/dL (3.2-4.8); Alkaline Phosphatase 56 U/L (46-116); Aspartate Aminotransferase 18 U/L (13-40); Bilirubin, Total 0.7 mg/dL (0.2-1.0); Blood Urea Nitrogen 22 mg/dL (9-23); Calcium 8.7 mg/dL (8.7-10.4); Carbon Dioxide 29 mmol/L (20-31); Chloride 100 mmol/L (98-107); Glucose 216 mg/dL (74-106); Potassium 3.7 mmol/L (3.5-5.1); Sodium 138 mmol/L (136-145); Total Protein 5.8 g/dL (5.7-8.2)
[2025-02-06 01:00] VITALS: BP 110/64; PULSE 99; RESP 20; TEMP 98; O2SAT 96
[2025-02-06 05:00] VITALS: BP 108/69; PULSE 83; RESP 16; TEMP 97.6; O2SAT 98
[2025-02-06 07:37] VITALS: RESP 17
[2025-02-06 09:11] LABS: Basophils # (auto) 0 10 ^3/uL (0-0.2); Basophils % (auto) 0.4 % (0.0-2.0); Eosinophils # (auto) 0.1 10 ^3/uL (0-0.8); Eosinophils % (auto) 1.5 % (0.0-7.0); Hematocrit 39.8 % (36.0-46.0); Hemoglobin 13.4 g/dL (12.2-16.2); Lymphocytes # (auto) 4.2 10 ^3/uL (0.4-5.4); Lymphocytes % (auto) 54.4 % (10.0-50.0); Mean Corpuscular Hemoglobin 27.9 pg (28.0-32.0); Mean Corpuscular Hgb Conc. 33.8 g/dL (32.0-36.0); Mean Corpuscular Volume 82.8 fL (80.0-100.0); Monocytes # (auto) 1.2 10 ^3/uL (0-1.3); Monocytes % (auto) 15.1 % (0.0-12.0); Neutrophils # (auto) 2.2 10 ^3/uL (1.6-8.6); Neutrophils % (auto) 28.6 % (37.0-80.0); Nucleated Red Blood Cells % 0.1 %; Platelet Count (auto) 251 10^3/uL (140-450); Red Cell Distribution Width 13.9 % (11.8-14.3); White Blood Cell 7.7 10^3/uL (4.4-10.8)
[2025-02-06 09:21] VITALS: BP 130/79; PULSE 72; RESP 15; TEMP 98.6; O2SAT 99
[2025-02-06 12:47] VITALS: BP 107/63; PULSE 93; RESP 18; TEMP 98.8; O2SAT 98
[2025-02-06 12:49] VITALS: BP 125/90; PULSE 66; RESP 17; TEMP 37.1; O2SAT 95
--- NOTE | 2025-02-06 13:57 | DVHDS2 ---
Discharge Summary Date of Admission February 04, 2025 at 21:23 Date of Discharge: February 06, 2025 Labs/Diagnostic Data: Laboratory Results Test 02/06/25 10:07 02/06/25 06:21 02/05/25 23:28 02/04/25 23:39 POC Glucose 253 mg/dl (70-106) White Blood Count 7.7 10^3/uL (4.4-10.8) Red Blood Count 4.80 10^6/uL (4.0-5.20) Hemoglobin 13.4 g/dL (12.2-16.2) Hematocrit 39.8 % (36.0-46.0) Mean Corpuscular Volume 82.8 fL (80.0-100.0) Mean Corpuscular Hemoglobin 27.9 pg (28.0-32.0) Mean Corpuscular Hemoglobin Concent 33.8 g/dL (32.0-36.0) Red Cell Distribution Width 13.9 % (11.8-14.3) Platelet Count 251 10^3/uL (140-450) Mean Platelet Volume 8.5 fL (6.9-10.8) Neutrophils (%) (Auto) 28.6 % (37.0-80.0) Lymphocytes (%) (Auto) 54.4 % (10.0-50.0) Monocytes (%) (Auto) 15.1 % (0.0-12.0) Eosinophils (%) (Auto) 1.5 % (0.0-7.0) Basophils (%) (Auto) 0.4 % (0.0-2.0) Neutrophils # (Auto) 2.2 10 ^3/uL (1.6-8.6) Lymphocytes # (Auto) 4.2 10 ^3/uL (0.4-5.4) Monocytes # (Auto) 1.2 10 ^3/uL (0-1.3) Eosinophils # (Auto) 0.1 10 ^3/uL (0-0.8) Basophils # (Auto) 0 10 ^3/uL (0-0.2) Nucleated Red Blood Cells 0.1 % Sodium Level 138 mmol/L (136-145) Potassium Level 3.7 mmol/L (3.5-5.1) Chloride Level 100 mmol/L (98-107) Carbon Dioxide Level 29 mmol/L (20-31) Anion Gap 9 (5-15) Blood Urea Nitrogen 22 mg/dL (9-23) Creatinine 0.98 mg/dL (0.550-1.02) Glomerular Filtration Rate Calc 66 mL/min (>90) BUN/Creatinine Ratio 22.4 (10.0-20.0) Serum Glucose 216 mg/dL (74-106) Calcium Level 8.7 mg/dL (8.7-10.4) Total Bilirubin 0.7 mg/dL (0.2-1.0) Aspartate Amino Transferase (AST) 18 U/L (13-40) Alanine Aminotransferase (ALT) 16 U/L (7-40) Alkaline Phosphatase 56 U/L (46-116) Total Protein 5.8 g/dL (5.7-8.2) Albumin 3.7 g/dL (3.2-4.8) Lactic Acid Level 1.5 mmol/L (0.4-2.0) Test 02/04/25 16:01 02/04/25 15:20 02/04/25 15:10 02/04/25 15:00 Serum Osmolality 334 mOsm/kg (278-298) Phosphorus Level 8.4 mg/dL (2.4-5.1) Magnesium Level 2.9 mg/dL (1.6-2.6) Beta-Hydroxybutyric Acid > 4.500 mmol/L (< 0.4) Troponin I High Sensitivity 4 ng/L (</=34) Urine Color Light-yellow (Yellow) Urine Clarity Clear (Clear) Urine pH 5.0 (5.0-9.0) Urine Specific [place] 1.024 (1.001-1.035) Urine Protein Negative (Negative) Urine Ketones 4+ (Negative) Urine Blood Negative /uL (Negative) Urine Nitrite Negative (Negative) Urine Bilirubin Negative (Negative) Urine Urobilinogen Normal mg/dL (Negative) Urine Leukocyte Esterase Trace /uL (Negative) Urine RBC 6 /hpf (0 - 4) Urine Microscopic WBC 5 /HPF (0-5) Urine Squamous Epithelial Cells Few /hpf (<5) Urine Bacteria Few /hpf (None Seen) Urine Yeast (Budding) Moderate /hpf (None Seen) Urine Glucose 4+ mg/dL (Normal) Blood Gas Specimen Type Arterial Blood Gas Sample Site Right radial Blood Gas Patient Temperature 37.0 Arterial Blood Date Drawn [id number] Arterial Blood pH 7.199 (7.350-7.450) Arterial Blood Partial Pressure CO2 15.8 mmHg (32.0-45.0) Arterial Blood Partial Pressure O2 102.2 mmHg (83.0-108.0) Arterial Blood HCO3 6.0 mmol/L (21.0-28.0) Arterial Blood Oxygen Saturation 97.0 % (94.0-98.0) Arterial Blood Base Excess -19.2 mmol/L (-2.0-3.0) Arterial Blood Oxyhemoglobin 96.2 % (94.0-98.0) Arterial Blood Carboxyhemoglobin 0.3 % (0.5-1.5) Arterial Blood Methemoglobin 0.5 % (0.0-1.5) Mikal Test Modified Blood Gas Total Hemoglobin 16.80 g/dL (12.0-16.0) Blood Gas Modality Room air FiO2 % 21.0 Blood Gas Critical Value Read Back Yes Blood Gas Notified Whom radha Rawls md Blood Gas Notified Time [id number] Blood Gas Notified By Jennifer cassidy electron tube assembler Test 02/04/25 14:40 B-Type Natriuretic Peptide 16.27 pg/mL (0-100) Lipase 47 U/L (12-53) Other Laboratory Tests 02/06/25 06:21 02/05/25 23:28 Brief Hx & Hospital Course: The patient is a 59-year-old female with past medical history of diabetes mellitus who presented to [facility] for evaluation of elevated blood sugar. Patient's symptoms progressively get worse with abdominal pain, nausea, vomiting, getting worse that prompted this visit. Patient was seen and evaluated in the ED, speaks [place] and nephew at bedside is translating for patient. Laboratory data shows WBC 12.2, hemoglobin 16.9, hematocrit 51.8, platelets 391, sodium 135, potassium 4.9, BUN 33, creatinine 1.51, glucose 478, anion gap 30, acetone > 4.500, calcium 10.8, lactic acid 3.0 trending down to 2.9, phos 8.4, magnesium 2.9, BNP 16.27, blood pressure 106/51, heart rate 144 trending down to 112, temperature 99.0 F, O2 saturation 98% on oxygen. Patient was started on insulin drip, please see medication orders section in the computer. On my assessment, patient denied chest pain, no headache, no dizziness, no diaphoresis, no shortness of breath, no nausea or vomiting at this moment, no fever, no chills. Patient was admitted for further evaluation and medical management. AG closed and on insulijn I discussed with nephew over the phone that she needs to be more compliant with insulin at home Condition at Discharge: Good Final Diagnosis/Problems List diabetic ketoacidosis sepsis present on admision and ruled out Discharge Disposition: Home Discharge Instruct/Medications Diet: Cardiac 2g Na,low cholest Activity: No Restrictions, As Tolerated Follow Up/Referral: PCP in 7 day Medications: same home medications Discharge Statement: "Patient was advised to return to the ER or call 911 if any headaches, dizziness, shortness of breath, chest pain, abdominal pain, bleeding, fevers, or worsening of medical condition. Patient was counseled about treatment plan, medications, possible side effects, patientverbalized understanding. All questions were answered to the best of my ability. This discharge took greater then 30 minutes in planning, reviewing documentation, counseling the patient, and discussing with other team members." ASSESSMENT ASSESSMENT Assessment diabetic ketoacidosis sepsis present on admision and ruled out Date of Service: February 06, 2025 Billing Provider: JEAN IBRD MD Common Visit Codes: [id number] DISCH DAY >30min JEAN BIRD MD February 06, 2025 13:57
== END 2025-02-06 14:40 | disposition home or self-care (01) | DRG 420 ==
LOC: ER 14:11 → OVERFLOW 21:23 → TELE-EAST 02-05 11:07
PROVIDERS: ADMIT Nurse Practitioner Family; ATTEND Nurse Practitioner Family
DX: E11.10 Type 2 diabetes mellitus with ketoacidosis without coma (principal); N17.0 Acute kidney failure with tubular necrosis; R65.11 Systemic inflammatory response syndrome (SIRS) of non-infectious origin with acute organ dysfunction; K59.00 Constipation, unspecified; Z79.4 Long term (current) use of insulin; Z79.84 Long term (current) use of oral hypoglycemic drugs; Z79.899 Other long term (current) drug therapy
CPT/HCPCS: 36415; 36600; 71045; 74176; 80048; 80053; 81001; 82010; 82805; 82962; 83605; 83690; 83735; 83880; 83930; 84100; 84484; 85025; 87040; 93005; 96365; 96372; 99291; G0378; J1815; J2405; J3490

== ENCOUNTER 2025-02-15 15:35 | Inpatient (IN) | payer OTHER ==
[~2025-02-15] VITALS: Ht 165.1 cm; Wt 50.9 kg
[2025-02-15] VITALS (26 sets, daily range): BP systolic 73–125; BP diastolic 28–67; PULSE 118–140; RESP 15–28; TEMP 93.9–98.6; O2SAT 98–100
[2025-02-15] MEDS ORDERED: DEXTROSE (50%) 50ML SYRG IV PRN ×2 (16:15→19:45)
[2025-02-15] MEDS: SODIUM CHLORIDE 0.9% 1,000 ML IV ONE ×3 (16:30→19:19)
--- NOTE | 2025-02-15 16:33 | ED.PDOC ---
History of Present Illness HPI Comments This is a 59-year-old female who comes in with chief complaint of nausea and vomiting as well as an elevated blood sugar. At this time, the patient was seen last week and diagnosed with a DKA. She remained in the hospital and was then discharged. This morning, the patient became somewhat altered and again her blood sugar was very elevated. Her family member brought her to the emergency department's for further evaluation. The patient has a history of diabetes. Chief Complaint: Hyperglycemia Time Seen by MD: 15:36 Primary Care Provider: UNKNOWN Reviewed Notes: Nurses Notes, Medications, Allergies (No allergies to medications) Allergies: Coded Allergies: NO KNOWN ALLERGIES (Unverified , 10/08/21) Home Meds Active Scripts Ascorbic Acid (VITAMIN C) 500 Mg Cap, 500 MG PO DAILY, #15 CAP Prov:NILO SCOTT MD 10/19/21 Zinc Sulfate (Zinc) 220 Mg Cap, 220 MG PO DAILY, #15 CAP Prov:NILO SCOTT MD 10/19/21 Reported Medications Clotrimazole (Clotrimazole) 1 % Cre, 1 APPLIC TOP Q12HR for 30 Days, APPLIC 10/23/21 Pseudoephedrine (Sm Nasal Decongestant) 120 Mg Tab, 60 MG PO TID, TAB 10/23/21 Omeprazole (Gnp Omeprazole) 20 Mg Tab, 2 TAB PO DAILY, #30 TAB 3 Refills PATIENT TAKES 40MG PRESCRIPTION DOSE 10/17/21 Buspirone HCl (Buspirone HCl) 10 Mg Tab, 10 MG PO BID, TAB 10/17/21 Insulin Glargine (Lantus) 100 Unit/Ml Inj, 33 UNIT SC HS, INJ 10/17/21 Gabapentin (Gabapentin) 100 Mg Cap, 100 MG PO BID for 30 Days, MG 10/17/21 Metformin Hydrochloride (Metformin Hcl) 500 Mg Tab, 1000 MG PO IBID for 30 Days, MG 10/17/21 Information Source: Patient Mode of Arrival: Wheelchair Severity: Moderate Timing: Hours Duration: Since onset Prehospital treatment: None Associated signs and symptoms The patient is complaining of some nausea and vomiting as well as being somewhat altered Past Medical History PAST MEDICAL HISTORY: DM Surgical History: Denies all surgeries 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: Denies all 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 HAND Hx Family History Family History: Family hx of DM Social History Smoker: Non-Smoker Alcohol: Denies ETOH Use Drugs: Denies Drug Use Lives In: Home Constitutional: denies: chills, diaphoresis, fatigue, fever, malaise, sweats, weakness, others EENTM: denies: blurred vision, double vision, ear bleeding, ear discharge, ear drainage, ear pain, ear ringing, eye pain, eye redness, hearing loss, mouth pain, mouth swelling, nasal discharge, nose bleeding, nose congestion, nose pain, photophobia, tearing, throat pain, throat swelling, voice changes, others Respiratory: denies: cough, hemoptysis, orthopnea, SOB at rest, shortness of breath, SOB with excertion, stridor, wheezing, others Cardiovascular: denies: chest pain, dizzy spells, diaphoresis, Dyspnea on exertion, edema, irregular heart beat, left arm pain, lightheadedness, palpitations, PND, syncope, others Gastrointestinal: denies: abdomen distended, abdominal pain, blood streaked bowels, constipated, diarrhea, dysphagia, difficulty swallowing, hematemesis, melena, nausea, poor appetite, poor fluid intake, rectal bleeding, rectal pain, vomiting, others Genitourinary: denies: abnormal vagina bleeding, burning, dyspareunia, dysuria, flank pain, frequency, hematuria, incontinence, pain, , vagina discharge, urgency, others Neurological: denies: dizziness, fainting, headache, left sided numbness, left sided weakness, numbness, paresthesia, pre-existing deficit, right sided numbness, right sided weakness, seizure, speech problems, tingling, tremors, weakness, others Musculoskeletal: denies: back pain, gout, joint pain, joint swelling, muscle pain, muscle stiffness, neck pain, others Integumetry: denies: bruises, change in color, change in hair/nails, dryness, laceration, lesions, lumps, rash, wounds, others Allergic/Immunocompromised: denies: Difficulty Healing, Frequent Infections, Hives, Itching, others Hematologic/Lymphatic: denies: anemia, blood clots, easy bleeding, easy bruising, swollen glands, others Endocrine: denies: excessive hunger, excessive sweating, excessive thirst, excessive urination, flushing, intolerance to cold, intolerance to heat, unexplained weight gain, unexplained weight loss, others Psychiatric: denies: anxiety, bipolar disorder, depression, hopeless, panic disorder, schizophrenia, sleepless, suicidal, others Physical Exam General Appearance: Moderate Distress, Other (Altered mental status) HEENT: Pale Conjuntivae (L), Pale Conjuntivae (R), Pharynx Normal, TMs Normal Neck: Full Range of Motion, Non-Tender, Normal, Normal Inspection Respiratory: Chest Non-Tender, Decreased Breath Sounds, Lungs Clear, Respiratory Distress Cardiovascular: No Edema, No JVD, No Murmur, No Gallop, Tachycardia Breast Exam: Deferred Gastrointestinal: No Organomegaly, Non Tender, No Pulsatile Mass, Normal Bowel Sounds, Soft Genitalia: Deferred Pelvic: Deferred Rectal: Deferred Extremities: No calf tenderness, Normal capillary refill, Normal inspection, Normal range of motion, Non-tender, No pedal edema Musculoskeletal : Apperance: Normal 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 Indication: Hypotension, CVP monitoring, Volume resuscitation, Suspected infection Room prepared for procedure: Yes Crossing Watchman performed hand hygien: Yes Maximal sterile barrier precau: Mask/Eye shield, Sterile gown, Cap, Sterlie gloves, Large sterlie drape Skin Preparation: Chlorhexidine gluconate Skin preparation completely dr: Yes Insertion site: Right, Internal jugular Central line catheter type: Qir-ekbfndue-kia dialysis Number of lumens: 3 Central line exchanged over a: No Antiseptic ointment applied to: No Post Assessment: Chest X-Ray Intubation Indication: Respiratory Insufficiency, Altered Mental Status Prep: Preoxygenation Pretreated with: Sedation (Etomidate 20 mg IV push) Medicated with: Succinylcholine (80 mg IV push) Intubation Approach: Orotracheal Intubation size: cm (7.5 cm) Informed consent obtained: No Risks/benefits/alt described: No Differential Dx Considerations may include: Diabetic ketoacidosis, electrolyte imbalance, generalized weakness X-Ray, Labs, Meds, VS Vital Signs Date Time Temp Pulse Resp B/P (MAP) Pulse Ox O2 Delivery O2 Flow Rate FiO2 02/15/25 19:39 118 19 125/55 98 30 02/15/25 18:45 120 20 93/27 (49) 99 02/15/25 18:31 94/48 02/15/25 18:30 125 19 106/ 98 30 02/15/25 18:30 120 20 95/35 (55) 99 02/15/25 18:27 120 18 99 Mechanical Ventilator+ 0 30 30 02/15/25 18:15 118 20 102/40 (60) 99 02/15/25 18:04 118 02/15/25 18:00 117 20 100/48 (65) 95 02/15/25 17:45 114 19 98/47 (64) 97 02/15/25 17:35 97.9 116 21 111/67 (82) 97 97.9 02/15/25 17:35 114 19 98 60 02/15/25 17:31 111/67 02/15/25 17:30 125/55 02/15/25 16:52 97.5 131 24 108/61 (77) 100 97.5 Lab Test 02/15/25 19:47 02/15/25 18:09 02/15/25 18:08 02/15/25 17:37 Range/Units Sodium Level Pending Potassium Level Pending Chloride Level Pending Carbon Dioxide Level Pending Anion Gap Pending Blood Urea Nitrogen Pending Creatinine Pending Glomerular Filtration Rate Calc Pending BUN/Creatinine Ratio Pending Serum Glucose Pending Lactic Acid Level Pending 3.6 *H 0.4-2.0 mmol/L Calcium Level Pending POC Glucose > 600 *H 70-106 mg/dl Blood Gas Specimen Type Arterial Blood Gas Sample Site Left radial Blood Gas Patient Temperature 37.0 Arterial Blood Date Drawn [id number] Arterial Blood pH 6.858 *L 7.350-7.450 Arterial Blood Partial Pressure CO2 22.5 L 32.0-45.0 mmHg Arterial Blood Partial Pressure O2 331.0 *H 83.0-108.0 mmHg Arterial Blood HCO3 3.9 L 21.0-28.0 mmol/L Arterial Blood Oxygen Saturation 99.6 H 94.0-98.0 % Arterial Blood Base Excess -29.1 L -2.0-3.0 mmol/L Arterial Blood Oxyhemoglobin 98.1 H 94.0-98.0 % Arterial Blood Carboxyhemoglobin 0.7 0.5-1.5 % Arterial Blood Methemoglobin 0.8 0.0-1.5 % Mikal Test Modified Blood Gas Total Hemoglobin 16.00 12.0-16.0 g/dL Blood Gas Set Respiration Rate 18.0 Blood Gas Modality Vent - ac FiO2 % 60.0 Blood Gas Tidal Volume 450.0 Blood Gas PEEP or CPAP 5.0 Blood Gas Critical Value Read Back Yes Blood Gas Notified Whom Md ian goff Blood Gas Notified Time [id number] Blood Gas Notified By Rt mauri cali Test 02/15/25 16:31 Range/Units White Blood Count 34.0 *H 4.4-10.8 10^3/uL Red Blood Count 5.90 H 4.0-5.20 10^6/uL Hemoglobin 16.6 H 12.2-16.2 g/dL Hematocrit 56.0 H 36.0-46.0 % Mean Corpuscular Volume 94.8 80.0-100.0 fL Mean Corpuscular Hemoglobin 28.1 28.0-32.0 pg Mean Corpuscular Hemoglobin Concent 29.7 L 32.0-36.0 g/dL Red Cell Distribution Width 15.5 H 11.8-14.3 % Platelet Count 434 140-450 10^3/uL Mean Platelet Volume 8.4 6.9-10.8 fL Neutrophils (%) (Auto) 37.0-80.0 % Lymphocytes (%) (Auto) 10.0-50.0 % Monocytes (%) (Auto) 0.0-12.0 % Basophils (%) (Auto) 0.0-2.0 % Neutrophils # (Auto) 1.6-8.6 10 ^3/uL Lymphocytes # (Auto) 0.4-5.4 10 ^3/uL Monocytes # (Auto) 0-1.3 10 ^3/uL Differential Total Cells Counted 100.0 100 Neutrophils % (Manual) 63 37.0-80.0 Band Neutrophils % (Manual) 10 Lymphocytes % (Manual) 17 10.0-50.0 Monocytes % (Manual) 9 0-12 Eosinophils % (Manual) 1 0-7 Basophils % (Manual) 0 0.0-2.0 Metamyelocytes % (manual) 0 Myelocytes % (Manual) 0 Promyelocytes % (Manual) 0 Blast Cells % (Manual) 0 Reactive Lymphocytes 0 Platelet Estimate Adequate Large Platelets Few Blood Gas Specimen Type Arterial Blood Gas Sample Site Left radial Blood Gas Patient Temperature 37.0 Arterial Blood Date Drawn [id number] Arterial Blood pH 6.867 *L 7.350-7.450 Arterial Blood Partial Pressure CO2 < 14.1 *L 32.0-45.0 mmHg Arterial Blood Partial Pressure O2 101.3 83.0-108.0 mmHg Arterial Blood Oxygen Saturation 96.5 94.0-98.0 % Arterial Blood Oxyhemoglobin 95.1 94.0-98.0 % Arterial Blood Carboxyhemoglobin 0.8 0.5-1.5 % Arterial Blood Methemoglobin 0.6 0.0-1.5 % Mikal Test Yes Blood Gas Total Hemoglobin 16.30 H 12.0-16.0 g/dL Blood Gas Modality Room air FiO2 % 21.0 Blood Gas Critical Value Read Back Yes Blood Gas Notified Whom ian Goff md Blood Gas Notified Time [id number] Blood Gas Notified By Linden brady i. Sodium Level 129 L 136-145 mmol/L Potassium Level 5.6 *H 3.5-5.1 mmol/L Chloride Level 92 L 98-107 mmol/L Carbon Dioxide Level < 10 *L 20-31 mmol/L Anion Gap 27.44774 H 5-15 Blood Urea Nitrogen 33 H 9-23 mg/dL Creatinine 1.79 H 0.550-1.02 mg/dL Glomerular Filtration Rate Calc 32 >90 mL/min BUN/Creatinine Ratio 18.4 10.0-20.0 Serum Glucose 737 *H 74-106 mg/dL Calcium Level 9.2 8.7-10.4 mg/dL Current Medications Medications (Trade) Dose Ordered Sig/Lex Route Start Time Stop Time Status Last Admin Sodium Chloride 1,000 ml @ 1,000 mls/hr Q1H ONCE IV 02/15/25 16:15 02/15/25 17:14 DC 02/15/25 16:30 Insulin Human (Reg)/Sodium Chloride 100 ml @ 0.5 mls/hr Q24H IV 02/15/25 16:15 02/15/25 18:15 Diagnostic Test (Pha) (Accu-Chek Comfort Curve T) 1 strip Q90MIN 02/15/25 16:30 02/15/25 18:17 Insulin Glargine (Lantus) 15 units ONCE ONCE SC 02/15/25 16:15 02/15/25 16:16 DC 02/15/25 16:59 Sodium Bicarbonate 50 ml ONCE ONCE IV 02/15/25 16:45 02/15/25 16:46 DC 02/15/25 16:59 Etomidate 20 mg ONCE ONCE IV 02/15/25 17:15 02/15/25 17:16 DC 02/15/25 17:40 Succinylcholine Chloride (Quelicin) 60 mg ONCE ONCE IV 02/15/25 17:15 02/15/25 17:16 DC 02/15/25 17:40 Midazolam HCl 50 ml @ 1 mls/hr Q24H IV 02/15/25 17:30 02/15/25 17:30 Sodium Bicarbonate 100 ml ONCE ONCE IV 02/15/25 18:30 02/15/25 18:31 DC 02/15/25 18:34 Sodium Chloride 1,000 ml @ 1,000 mls/hr Q1H ONCE IV 02/15/25 19:15 02/15/25 20:14 DC 02/15/25 19:19 Chest x-ray shows: IMPRESSION: 1. No evidence of acute disease. 2. Support lines are in satisfactory position. The patient was given normal saline at 1 L bolus The patient presented as DKA The serum glucose of 737 We did do an ABG which shows a pH of 6.85/pCO2 of 22 and a PO2 of 331 The patient tolerated the intubation without any difficulty. The patient was then started on an insulin drip. The patient has remained somewhat hypotensive The patient is being given another bolus of normal saline The anion gap is higher than 27 The patient's potassium is 5.6 indicating hypokalemia The CO2 level is less than 10 The patient is being given sodium bicarbonate for the severe acidosis. Images Reviewed?: Images reviewed and evaluated by me Time of 1ST Reevaluation: 16:33 Reevaluation 1ST: Unchanged Time of 2ND Reevaluation: 20:19 Reevaluation 2ND: Improved Patient Education/Counseling: Other (Altered mental status) Family Education/Counseling: Diagnosis, Treatment, Prognosis Sepsis Sepsis Reasesment Focused Exam Orders: Laboratory Tests 02/15/25 17:37: Lactic Acid Level 3.6 02/15/25 19:47: Departure 1 Departure Time of Disposition: 20:20 Impression: Primary Impression: DKA (diabetic ketoacidosis) Qualified Codes: E13.11 - Other specified diabetes mellitus with ketoacidosis with coma Disposition: ADMITTED INPATIENT Admit to: ICU Condition: Fair Critical Care Note Critical Care Time?: Yes (90 min-critical care time only) Stability Stability form required: Yes Unstable for transfer: ICU, CCU, PCU, LIZETTE (Intensive VS monitoring), Low BP (low high or fluctuating BP), ED Physician Assesment (Clinical assesment) Heart Score Heart Score: Heart Score Response (Comments) Value History N/A 0 EKG N/A 0 Age N/A 0 Risk Factors N/A 0 Troponin N/A 0 Total 0 AURELIA GOFF MD February 15, 2025 16:33
[2025-02-15] MEDS: SODIUM BICARB 8.4% 50Meq/50ml SYR Vial IV ONE ×4 (16:59→20:46)
[2025-02-15] MEDS: INSULIN LANTUS (GLARGINE) 1 /0.01ml (100units/ml) SC ONE (16:59)
[2025-02-15 17:02] LABS: Hemoglobin 16.6 g/dL (12.2-16.2); Red Cell Distribution Width 15.5 % (11.8-14.3)
[2025-02-15 17:04] LABS: Mean Corpuscular Hemoglobin 28.1 pg (28.0-32.0); Mean Corpuscular Hgb Conc. 29.7 g/dL (32.0-36.0); Mean Corpuscular Volume 94.8 fL (80.0-100.0); Platelet Count (auto) 434 10^3/uL (140-450)
[2025-02-15 17:10] LABS: Anion Gap 27.00001 (5-15); Calcium 9.2 mg/dL (8.7-10.4)
[2025-02-15 17:12] LABS: Basophils % (manual) 0 (0.0-2.0); Blast Cells 0; Metamyelocytes % 0; Myelocytes % 0; Promyelocytes % 0; Reactive Lymphocytes 0
[2025-02-15 17:15] LABS: BUN/Creatinine Ratio 18.4 (10.0-20.0)
[2025-02-15 17:28] LABS: Blood Urea Nitrogen 33 mg/dL (9-23); Chloride 92 mmol/L (98-107); Sodium 129 mmol/L (136-145)
[2025-02-15] MEDS: MIDAZOLAM DRIP 50 mg/50mL 50 ML IV SCH (17:30)
[2025-02-15 17:31] LABS: Carbon Dioxide < 10 mmol/L (20-31); Glucose 737 mg/dL (74-106); Potassium 5.6 mmol/L (3.5-5.1)
[2025-02-15] MEDS: MIDAZOLAM DRIP 50 mg/50mL 50 ML IV ONE ×2 (17:40→17:41)
[2025-02-15] MEDS: ETOMIDATE (2MG/ML) 20ML VIAL IV ONE (17:40)
[2025-02-15] MEDS: SUCCINYLCHOLINE CHLORIDE 20 MG/ML 10ML VIAL IV ONE (17:40)
[2025-02-15 18:05] LABS: Band Neutrophils % (manual) 10; Eosinophils % (manual) 1 (0-7); Lymphocytes % (manual) 17 (10.0-50.0); Monocytes % (manual) 9 (0-12); Platelet Estimate Adequate
[2025-02-15 18:06] LABS: Large Platelets FEW
--- NOTE | 2025-02-15 18:07 | ECG ---
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
[2025-02-15] MEDS: INSULIN DRIP 100 UNIT/100ML 100 ML IV SCH ×3 (18:15→23:15)
[2025-02-15] MEDS: ACCU-CHEK COMFORT CURVE STRIP VI SCH ×2 (18:17→20:22)
[2025-02-15 18:18] LABS: Base Excess -29.1 mmol/L (-2.0-3.0)
--- NOTE | 2025-02-15 18:20 | DVH ---
INDICATION: sob TECHNIQUE: Frontal view of the chest. COMPARISON: XY CHEST PORTABLE on DOS: 02/04/25, CHEST PORTABLE on DOS: 10/22/21, CHEST PORTABLE on DOS: 10/13/21, CHEST PORTABLE on DOS: 10/10/21 FINDINGS: Findings:. The heart and mediastinal contours are grossly unremarkable. There is no evidence of pleu ral disease. The lungs are clear. The bony structures of the chest are intact without fracture. Th e support lines endotracheal tube is in satisfactory position. Nasogastric tube with the tip in the stomach in satisfactory position. IMPRESSION: 1. No evidence of acute disease. 2. Support lines are in satisfactory position.
[2025-02-15 18:50] LABS: Lactic Acid w/Reflex 3.6 mmol/L (0.4-2.0)
--- NOTE | 2025-02-15 19:07 | DVHHP2 ---
History of Present Illness Reason for Visit: Elevated blood glucose History of Present Illness 59-year-old female with diabetes recent admission for DKA discharge February 06, 2025 chief complaint patient was here with the abdominal pain and vomiting but she returns with nausea and vomiting and found to have a blood glucose unreadable on a monitor. Patient was recently admitted and discharged for the same symptoms. When going to the bedside no family was available but according to the ED records patient had a white count of 34.0 hemoglobin 16.6 patient had an ABG was pH 6.858 bicarb was 3.9 potassium was 5.6 chloride was 92 CO2 was less than 10 gap was 27.0 BUN was 33 creatinine was one point seven nine glucose was 737 lactate was 3.6 ED team have provided patient with bicarb it appears patient became more lethargic and less responsive so patient was intubated in the ED with Versed drip after intubation blood cultures x2 was sent Lantus was given 15 units and also started on insulin drip. Patient be admitted to ICU for DKA management Past Medical History Diabetes Past Surgical History See HPI above Family History Unable to give family history due to current mental status and patient is intubated Past Social History Unable to assess social history due to current mental status and patient is intubated Review of Systems Review of Systems Unable to assess ROS due to patient being intubated Allergies: Coded Allergies: NO KNOWN ALLERGIES (Unverified , 10/08/21) Medications Current Medications Medications Dose Ordered Sig/Lex Route Start Time Stop Time Status Last Admin Dose Admin Insulin Human (Reg)/Sodium Chloride 100 ml @ 0.5 mls/hr Q24H IV 02/15/25 16:15 02/15/25 18:15 6 MLS/HR Diagnostic Test (Pha) 1 strip Q90MIN 02/15/25 16:30 02/15/25 18:17 1 STRIP Dextrose 50 ml PRN PRN IV 02/15/25 16:15 Insulin Glargine 15 units DAILY SC 02/16/25 10:00 Midazolam HCl 50 ml @ 1 mls/hr Q24H IV 02/15/25 17:30 02/15/25 17:30 1 MLS/HR Exam Vital Signs Vital Signs Date Time Temp Pulse Resp B/P (MAP) Pulse Ox O2 Delivery O2 Flow Rate FiO2 02/15/25 18:27 120 18 99 Mechanical Ventilator+ 0 30 30 02/15/25 17:35 02/15/25 16:52 97.5 97.5 General Appearance: Other (Patient is intubated on my exam) Cardiovascular: Regular rate, Normal S1, Normal S2, No murmurs, Other (Tachycardia) Abdominal: Normal bowel sounds, Soft, No tenderness, No hepatospenomegaly, No masses Extremities: No clubbing, No cyanosis, No edema, Normal pulses Skin: No rashes, No breakdown, No significant lesion Labs/Xrays Chest x-ray unremarkable I reviewed labs, imaging CT scan abdomen pelvis, EKG and all diagnostic studies on this patient from ED records and the medical chart Labs Test 02/15/25 18:09 02/15/25 18:08 02/15/25 17:37 02/15/25 16:31 Range/Units POC Glucose > 600 *H 70-106 mg/dl Blood Gas Specimen Type Arterial Blood Gas Sample Site Left radial Blood Gas Patient Temperature 37.0 Arterial Blood Date Drawn [id number] Arterial Blood pH 6.858 *L 7.350-7.450 Arterial Blood Partial Pressure CO2 22.5 L 32.0-45.0 mmHg Arterial Blood Partial Pressure O2 331.0 *H 83.0-108.0 mmHg Arterial Blood HCO3 3.9 L 21.0-28.0 mmol/L Arterial Blood Oxygen Saturation 99.6 H 94.0-98.0 % Arterial Blood Base Excess -29.1 L -2.0-3.0 mmol/L Arterial Blood Oxyhemoglobin 98.1 H 94.0-98.0 % Arterial Blood Carboxyhemoglobin 0.7 0.5-1.5 % Arterial Blood Methemoglobin 0.8 0.0-1.5 % Mikal Test Modified Blood Gas Total Hemoglobin 16.00 12.0-16.0 g/dL Blood Gas Set Respiration Rate 18.0 Blood Gas Modality Vent - ac FiO2 % 60.0 Blood Gas Tidal Volume 450.0 Blood Gas PEEP or CPAP 5.0 Blood Gas Critical Value Read Back Yes Blood Gas Notified Whom Md ian hsieh Blood Gas Notified Time [id number] Blood Gas Notified By Rt mauri cali Lactic Acid Level 3.6 *H 0.4-2.0 mmol/L White Blood Count 34.0 *H 4.4-10.8 10^3/uL Red Blood Count 5.90 H 4.0-5.20 10^6/uL Hemoglobin 16.6 H 12.2-16.2 g/dL Hematocrit 56.0 H 36.0-46.0 % Mean Corpuscular Volume 94.8 80.0-100.0 fL Mean Corpuscular Hemoglobin 28.1 28.0-32.0 pg Mean Corpuscular Hemoglobin Concent 29.7 L 32.0-36.0 g/dL Red Cell Distribution Width 15.5 H 11.8-14.3 % Platelet Count 434 140-450 10^3/uL Mean Platelet Volume 8.4 6.9-10.8 fL Neutrophils (%) (Auto) 37.0-80.0 % Lymphocytes (%) (Auto) 10.0-50.0 % Monocytes (%) (Auto) 0.0-12.0 % Basophils (%) (Auto) 0.0-2.0 % Neutrophils # (Auto) 1.6-8.6 10 ^3/uL Lymphocytes # (Auto) 0.4-5.4 10 ^3/uL Monocytes # (Auto) 0-1.3 10 ^3/uL Differential Total Cells Counted 100.0 100 Neutrophils % (Manual) 63 37.0-80.0 Band Neutrophils % (Manual) 10 Lymphocytes % (Manual) 17 10.0-50.0 Monocytes % (Manual) 9 0-12 Eosinophils % (Manual) 1 0-7 Basophils % (Manual) 0 0.0-2.0 Metamyelocytes % (manual) 0 Myelocytes % (Manual) 0 Promyelocytes % (Manual) 0 Blast Cells % (Manual) 0 Reactive Lymphocytes 0 Platelet Estimate Adequate Large Platelets Few Sodium Level 129 L 136-145 mmol/L Potassium Level 5.6 *H 3.5-5.1 mmol/L Chloride Level 92 L 98-107 mmol/L Carbon Dioxide Level < 10 *L 20-31 mmol/L Anion Gap 27.75692 H 5-15 Blood Urea Nitrogen 33 H 9-23 mg/dL Creatinine 1.79 H 0.550-1.02 mg/dL Glomerular Filtration Rate Calc 32 >90 mL/min BUN/Creatinine Ratio 18.4 10.0-20.0 Serum Glucose 737 *H 74-106 mg/dL Calcium Level 9.2 8.7-10.4 mg/dL Assessment/Plan Assessment/Plan Acute DKA pt with metabolic acidosis on exam and co2 low gap elevated ordered IV hydration Initiated DKA protocol Every hour Accu-Check for now Administer sodium bicarb bolus and drip since pH less than 6.9 BMP every 6 hours Replace electrolyte as needed Repeat ABG now NPO pt was provided lantus 15 units sq acute metabolic encephalopathy needing intubation pt intubated d/t mental status change and air way protection cont intubation on versed abg until resp status stable Acute severe sepsis likely in the setting of dehydration cont ivf cont vanco and cefepime for now fu blood culture and urine normal, cxr normal fu in am consider levophed keep SBP greater than 90 mmHg fu lactic first was 3.6 sepsis protocol for now started ordered sputum culture acute Severe leukocytosis likely in setting of severe dehydration ordered blood cultures fu lactate cont vanco and cefepime for now ordered blood cultures x2fu results fu repeat lactic acute Lactic acidosis metabolic likely in setting of dka ordered bicarb drip is ph <6.9 cont dka protocol treatment Acute tachycardia in setting of dka ordered nuclear monitoring technician for resp distress Acute hyperkalemia fu k level ordered mag and phos fu results Acute on chronic KIMMIE likely in setting of dehydration and dka cont ivf for now monitor for uptrend acute Hyponatremia likely in setting of DKA Follow-up urine osmolarity and serum osm and urine sodium Monitor sodium fen/ppx lovenox npo protonix ivf insulin drip pt to have central line placed plan admit to icu for management of dka and sepsis Plan discussed with: Other (information taken from patient chart ) Date of Service: February 15, 2025 Billing Provider: ALEX DOMINGUEZ DNP Common Visit Codes: [id number] INP/OBS CARE (HIGH), [id number] CARE 30- 74 MIN (Total critical care time: Approximately 45 minutes This critical care time included obtaining a history; examining the patient; pulse oximetry; ordering and review of studies; arranging urgent treatment with development of a management plan; evaluation of patient's response to treatment; frequent sandra ssessment; and, discussions with other providers.) ALEX DOMINGUEZ DNP February 15, 2025 19:07
[2025-02-15] MEDS: NOREPINEPHRINE 8 MG/250ML KIT 250 ML IV ONE (19:30)
[2025-02-15] MEDS ORDERED: ONDANSETRON HCL 4 MG/2 ML VIAL IV PRN (19:45)
[2025-02-15] MEDS ORDERED: VANCOMYCIN PER PHARMACY 0 MG IV SCH ×2 (19:45)
[2025-02-15] MEDS ORDERED: INSULIN DRIP 100 UNIT/100ML 100 ML IV SCH (19:45)
[2025-02-15] MEDS ORDERED: SODIUM BICARB IV ONE (19:45)
[2025-02-15] MEDS ORDERED: SODIUM CHL 0.9% IV ONE (19:45)
--- NOTE | 2025-02-15 20:45 | DVH ---
CHEST RADIOGRAPH Indication: CENTRAL LINE INSERTION Technique: Single frontal view of the chest was obtained COMPARISON: XY CHEST PORTABLE on DOS: 02/15/25 FINDINGS: Lines and Tubes: Interval insertion of right IJ central venous catheter with its tip projecting over cavoatrial junction. ETT in satisfactory position with its tip approximately 3.5 cm above the jami. NG tube extends below the diaphragm and is coiled in the gastric fundus. Lungs: Clear Pleura: No effusion. No pneumothorax. Cardiomediastinal contours: Unremarkable IMPRESSION: No acute disease.
[2025-02-15] MEDS: NOREPINEPHRINE 8 MG/250ML KIT 250 ML IV SCH (20:47)
[2025-02-15] MEDS: SODIUM CHLORIDE 0.9% 1,000 ML IV SCH ×2 (20:48→23:18)
[2025-02-15] MEDS: CEFEPIME 2GM/50ML NS 50 ML IV ONE (20:53)
[2025-02-15 21:00] LABS: Magnesium 2.5 mg/dL (1.6-2.6)
[2025-02-15] MEDS ORDERED: ACCU-CHEK COMFORT CURVE STRIP VI SCH (21:00)
[2025-02-15] MEDS: SODIUM BICARB 50mEq/50ml Vial 150 ML in SOD CHL 0.45% 1,000 ML IV ONE (21:00)
[2025-02-15 21:02] LABS: INR 0.91 (0.9-1.15); Partial Thromboplastin Time 27.3 SEC (24.5-34.5); Prothrombin Time 9.7 sec (9.3-11.8)
[2025-02-15 21:11] LABS: Urine Bacteria FEW /hpf (None Seen); Urine Blood 1+ /uL (Negative); Urine Budding Yeast MANY /hpf (None Seen); Urine Clarity Clear (Clear); Urine Color Light-Yellow (Yellow); Urine Mucus FEW (None Seen); Urine Protein, UAD 1+ (Negative); Urine Squamous Epithelial Cell FEW /hpf (<5); Urine Urobilinogen Normal (Negative); Urine WBC 1 /HPF (0-5); Urine pH 5.5 (5.0-9.0)
[2025-02-15 21:15] LABS: Chloride 98 mmol/L (98-107); Sodium 141 mmol/L (136-145)
[2025-02-15 21:16] LABS: Anion Gap 33.00001 (5-15)
[2025-02-15 21:21] LABS: BUN/Creatinine Ratio 20.6 (10.0-20.0)
[2025-02-15 21:22] LABS: Blood Urea Nitrogen 35 mg/dL (9-23); Calcium 8.6 mg/dL (8.7-10.4)
[2025-02-15 21:27] LABS: Carbon Dioxide < 10 mmol/L (20-31); Glucose 467 mg/dL (74-106)
[2025-02-15 21:52] LABS: Base Excess -10.8 mmol/L (-2.0-3.0)
[2025-02-15] MEDS: VANCOMYCIN 1.25GM/250ML 250 ML IV ONE (23:50)
[2025-02-16] VITALS (61 sets, daily range): BP systolic 89–144; BP diastolic 44–63; PULSE 97–140; RESP 12–29; TEMP 98.6–100; O2SAT 98–100
[2025-02-16] MEDS: INSULIN DRIP 100 UNIT/100ML 100 ML IV SCH (00:45)
[2025-02-16 01:16] LABS: Base Excess -4.3 mmol/L (-2.0-3.0)
[2025-02-16] MEDS: SODIUM CHLORIDE 0.9% 1,000 ML IV SCH (01:36)
[2025-02-16] MEDS: DEXTROSE (50%) 50ML SYRG IV PRN ×2 (01:37→12:30)
[2025-02-16 02:01] LABS: Anion Gap 22 (5-15); Carbon Dioxide 22 mmol/L (20-31)
[2025-02-16 02:06] LABS: BUN/Creatinine Ratio 26.1 (10.0-20.0)
[2025-02-16 02:07] LABS: Blood Urea Nitrogen 31 mg/dL (9-23); Chloride 110 mmol/L (98-107); Glucose 59 mg/dL (74-106); Sodium 154 mmol/L (136-145)
[2025-02-16] MEDS: POTASSIUM CHL 20MEQ/100ML 100 ML IV ONE (05:55)
[2025-02-16 07:26] LABS: Base Excess 7.7 mmol/L (-2.0-3.0)
[2025-02-16 08:00] LABS: Basophils # (auto) 0 10 ^3/uL (0-0.2); Basophils % (auto) 0.2 % (0.0-2.0); Eosinophils # (auto) 0 10 ^3/uL (0-0.8); Eosinophils % (auto) 0.1 % (0.0-7.0); Hematocrit 42.5 % (36.0-46.0); Hemoglobin 14.5 g/dL (12.2-16.2); Lymphocytes # (auto) 1.3 10 ^3/uL (0.4-5.4); Lymphocytes % (auto) 7.2 % (10.0-50.0); Mean Corpuscular Hemoglobin 27.9 pg (28.0-32.0); Mean Corpuscular Hgb Conc. 34.1 g/dL (32.0-36.0); Mean Corpuscular Volume 81.8 fL (80.0-100.0); Monocytes # (auto) 2.5 10 ^3/uL (0-1.3); Monocytes % (auto) 13.8 % (0.0-12.0); Neutrophils # (auto) 14.5 10 ^3/uL (1.6-8.6); Neutrophils % (auto) 78.7 % (37.0-80.0); Nucleated Red Blood Cells % 0.3 %; Platelet Count (auto) 309 10^3/uL (140-450); Red Cell Distribution Width 13.9 % (11.8-14.3); White Blood Cell 18.4 10^3/uL (4.4-10.8)
[2025-02-16 08:05] LABS: Anion Gap 15 (5-15); Carbon Dioxide 29 mmol/L (20-31)
[2025-02-16 08:10] LABS: BUN/Creatinine Ratio 25.2 (10.0-20.0); Blood Urea Nitrogen 31 mg/dL (9-23); Calcium 8.4 mg/dL (8.7-10.4); Chloride 113 mmol/L (98-107); Glucose 123 mg/dL (74-106); Potassium 3.2 mmol/L (3.5-5.1); Sodium 157 mmol/L (136-145)
[2025-02-16] MEDS ORDERED: INSULIN LANTUS (GLARGINE) 1 /0.01ml (100units/ml) SC SCH ×2 (10:00)
[2025-02-16] MEDS: ENOXAPARIN SOD 30 MG/0.3 ML SYRINGE SC SCH (10:28)
[2025-02-16 10:32] LABS: Magnesium 1.8 mg/dL (1.6-2.6)
[2025-02-16] MEDS: CEFEPIME 1GM/ 50ML 50 ML IV SCH (10:32)
[2025-02-16 10:36] LABS: Phosphorus 1.6 mg/dL (2.4-5.1)
[2025-02-16] MEDS: FLUCONAZOLE 200MG/100ML 100 ML IV SCH (10:44)
[2025-02-16] MEDS: POTASSIUM EFFERVESENT TAB 25 MEQ GT ONE (10:44)
[2025-02-16] MEDS: POTASSIUM CHLORIDE 20 MEQ in D5W 5% 1,000 ML IV SCH (11:27)
[2025-02-16] MEDS: FREE WATER GT SCH (12:00)
[2025-02-16] MEDS: InsuLIN REG 1unit/0.01ml Soln (100units/ml) SC SCH (12:00)
[2025-02-16] MEDS: ACCU-CHEK COMFORT CURVE STRIP VI SCH (12:25)
[2025-02-16] MEDS: VANCOMYCIN 500mg/100mL 100 ML IV SCH (13:17)
--- NOTE | 2025-02-16 13:37 | DVHINCON2 ---
Date of service: February 15, 2025 Referring Physician yael cartwright Reason for Consultation vent management History of Present Illness HPI pt is a 59 yo female, h/o DM and htn admitted with altered mental status and hypoglycemia. [facility] Initial ABG severe metabolic acidosis with a pH of 6.87!. Patient is started on intravenous fluids and insulin drip. Labs reveal an elevated white cell count. Chest x-ray unremarkable Home Meds Active Scripts Ascorbic Acid (VITAMIN C) 500 Mg Cap, 500 MG PO DAILY, #15 CAP Prov:NILO SCOTT MD 10/19/21 Zinc Sulfate (Zinc) 220 Mg Cap, 220 MG PO DAILY, #15 CAP Prov:NILO SCOTT MD 10/19/21 Reported Medications Clotrimazole (Clotrimazole) 1 % Cre, 1 APPLIC TOP Q12HR for 30 Days, APPLIC 10/23/21 Pseudoephedrine (Sm Nasal Decongestant) 120 Mg Tab, 60 MG PO TID, TAB 10/23/21 Omeprazole (Gnp Omeprazole) 20 Mg Tab, 2 TAB PO DAILY, #30 TAB 3 Refills PATIENT TAKES 40MG PRESCRIPTION DOSE 10/17/21 Buspirone HCl (Buspirone HCl) 10 Mg Tab, 10 MG PO BID, TAB 10/17/21 Insulin Glargine (Lantus) 100 Unit/Ml Inj, 33 UNIT SC HS, INJ 10/17/21 Gabapentin (Gabapentin) 100 Mg Cap, 100 MG PO BID for 30 Days, MG 10/17/21 Metformin Hydrochloride (Metformin Hcl) 500 Mg Tab, 1000 MG PO IBID for 30 Days, MG 10/17/21 Past Medical History Cardiac: No pertinent Hx Pulmonary: No pertinent Hx Central Nervous System: No pertinent Hx GI: No pertinent Hx Hemotology/Oncology: No pertinent Hx Hepatobiliary: No pertinent Hx Psychiatric: No pertinent Hx Musculoskeletal: No pertinent Hx Rheumotologic: No pertinent Hx Infectious Disease: No peritnent Hx Renal/: No pertinent Hx Endocrine: IDDM Past Surgical History: No pertinent Hx Patient Family History: Patient reports no known family medical history. Review of Systems Comments intubated H&P Exam Vital Signs Vital Signs Date Time Temp Pulse Resp B/P (MAP) Pulse Ox O2 Delivery O2 Flow Rate FiO2 02/16/25 12:35 103/57 02/16/25 12:14 123 18 100 30 02/16/25 11:00 95.5 95.5 02/16/25 07:30 Mechanical Ventilator+ 02/15/25 18:27 0 General Appeara: Well nourished, Thin Head Exam: Normal inspection Neck Exam: Normal inspection Eye Exam: bilateral eye Normal inspection, bilateral eye PERRL Ear Exam: bilateral ear Auricle normal, bilateral ear Canal normal Nasal Exam: Normal inspection Mouth: Normal Inspection Pulmonary/Respiratory: Normal inspection, Normal breath sounds, Chest non- tender Cardiovascular/Chest: Normal inspection Peripheral Pulses: 4+ carotid (R), 4+ carotid (L) Abdominal Exam: Normal bowel sounds Rectal Exam: Deferred Labs/Xrays Labs Test 02/16/25 12:56 02/16/25 07:42 02/16/25 07:20 02/15/25 20:28 Range/Units POC Glucose 127 H 70-106 mg/dl White Blood Count 18.4 #H 4.4-10.8 10^3/uL Red Blood Count 5.20 4.0-5.20 10^6/uL Hemoglobin 14.5 12.2-16.2 g/dL Hematocrit 42.5 # 36.0-46.0 % Mean Corpuscular Volume 81.8 # 80.0-100.0 fL Mean Corpuscular Hemoglobin 27.9 L 28.0-32.0 pg Mean Corpuscular Hemoglobin Concent 34.1 32.0-36.0 g/dL Red Cell Distribution Width 13.9 11.8-14.3 % Platelet Count 309 140-450 10^3/uL Mean Platelet Volume 7.9 6.9-10.8 fL Neutrophils (%) (Auto) 78.7 37.0-80.0 % Lymphocytes (%) (Auto) 7.2 L 10.0-50.0 % Monocytes (%) (Auto) 13.8 H 0.0-12.0 % Eosinophils (%) (Auto) 0.1 0.0-7.0 % Basophils (%) (Auto) 0.2 0.0-2.0 % Neutrophils # (Auto) 14.5 H 1.6-8.6 10 ^3/uL Lymphocytes # (Auto) 1.3 0.4-5.4 10 ^3/uL Monocytes # (Auto) 2.5 H 0-1.3 10 ^3/uL Eosinophils # (Auto) 0 0-0.8 10 ^3/uL Basophils # (Auto) 0 0-0.2 10 ^3/uL Nucleated Red Blood Cells 0.3 % Sodium Level 157 H 136-145 mmol/L Potassium Level 3.2 L 3.5-5.1 mmol/L Chloride Level 113 H 98-107 mmol/L Carbon Dioxide Level 29 20-31 mmol/L Anion Gap 15 5-15 Blood Urea Nitrogen 31 H 9-23 mg/dL Creatinine 1.23 H 0.550-1.02 mg/dL Glomerular Filtration Rate Calc 50 >90 mL/min BUN/Creatinine Ratio 25.2 H 10.0-20.0 Serum Glucose 123 H 74-106 mg/dL Calcium Level 8.4 L 8.7-10.4 mg/dL Phosphorus Level 1.6 L 2.4-5.1 mg/dL Magnesium Level 1.8 1.6-2.6 mg/dL Random Vancomycin Level 17.5 H 5-10 ug/mL Blood Gas Specimen Type Arterial Blood Gas Sample Site Left radial Blood Gas Patient Temperature 37.0 Arterial Blood Date Drawn Arterial Blood pH 7.589 *H 7.350-7.450 Arterial Blood Partial Pressure CO2 31.2 L 32.0-45.0 mmHg Arterial Blood Partial Pressure O2 128.5 H 83.0-108.0 mmHg Arterial Blood HCO3 29.2 H 21.0-28.0 mmol/L Arterial Blood Oxygen Saturation 98.5 H 94.0-98.0 % Arterial Blood Base Excess 7.7 H -2.0-3.0 mmol/L Arterial Blood Oxyhemoglobin 97.4 94.0-98.0 % Arterial Blood Carboxyhemoglobin 0.6 0.5-1.5 % Arterial Blood Methemoglobin 0.5 0.0-1.5 % Mikal Test Modified Blood Gas Total Hemoglobin 13.80 12.0-16.0 g/dL Blood Gas Set Respiration Rate 18.0 Blood Gas Modality Vent - ac FiO2 % 30.0 Blood Gas Tidal Volume 450.0 Blood Gas PEEP or CPAP 5.0 Blood Gas Critical Value Read Back Yes Blood Gas Notified Whom Therese kirkpatrick Blood Gas Notified Time [id number] Blood Gas Notified By Rt frieda bro Prothrombin Time 9.7 9.3-11.8 sec Prothrombin Time INR 0.91 0.9-1.15 Activated Partial Thromboplast Time 27.3 24.5-34.5 SEC Urine Color Light-yellow Yellow Urine Clarity Clear Clear Urine pH 5.5 5.0-9.0 Urine Specific [place] 1.020 1.001-1.035 Urine Protein 1+ H Negative Urine Ketones 3+ H Negative Urine Blood 1+ H Negative /uL Urine Nitrite Negative Negative Urine Bilirubin Negative Negative Urine Urobilinogen Normal Negative mg/dL Urine Leukocyte Esterase Negative Negative /uL Urine RBC 8 0 - 4 /hpf Urine Microscopic WBC 1 0-5 /HPF Urine Squamous Epithelial Cells Few <5 /hpf Urine Bacteria Few H None Seen /hpf Urine Mucus Few None Seen Urine Yeast (Budding) Many None Seen /hpf Urine Glucose 4+ H Normal mg/dL Serum Osmolality 348 H 278-298 mOsm/kg Beta-Hydroxybutyric Acid > 4.500 H < 0.4 mmol/L Test 02/15/25 19:47 02/15/25 16:31 Range/Units Lactic Acid Level 3.3 *H 0.4-2.0 mmol/L Differential Total Cells Counted 100.0 100 Neutrophils % (Manual) 63 37.0-80.0 Band Neutrophils % (Manual) 10 Lymphocytes % (Manual) 17 10.0-50.0 Monocytes % (Manual) 9 0-12 Eosinophils % (Manual) 1 0-7 Basophils % (Manual) 0 0.0-2.0 Metamyelocytes % (manual) 0 Myelocytes % (Manual) 0 Promyelocytes % (Manual) 0 Blast Cells % (Manual) 0 Reactive Lymphocytes 0 Platelet Estimate Adequate Large Platelets Few Microbiology Date/Time Source Procedure Growth Status 02/15/25 20:28 Urine - Mike Port Urine Culture - Preliminary Resulted 02/15/25 17:30 Trachea Gram Stain - Final Resulted 02/15/25 17:30 Trachea Respiratory Culture - Preliminary Resulted Assessment/Plan Plan Altered mental status Acute hypoxemic respiratory failure Acute kidney injury DKA severe metabolic acidosis Patient is seen and examined in the emergency room Currently sedated on mechanical ventilation Labs reviewed Imaging studies reviewed Management plan Continue sedative/vent support IV fluids/insulin drip per protocol Empiric antibiotic Deescalate based on cultures Monitor renal function When patient is more stable and metabolic derangements we will proceed to a sedation holiday and weaning trial Critical care time 35 minutes Plan discussed with: Other (rn) MARIBEL MERCER MD February 16, 2025 13:37
--- NOTE | 2025-02-16 13:40 | DVHPN2 ---
Progress Note - Dictate Date Seen: February 16, 2025 Has the PT tested + for MRSA If YES, has PT been informed?: No Medical Necessity Reason Pt with a Central, PICC or Fol: No vital signs Vital Sign Date Time Temp Pulse Resp B/P (MAP) Pulse Ox O2 Delivery O2 Flow Rate FiO2 02/16/25 12:35 103/57 02/16/25 12:14 123 18 100 30 02/16/25 11:00 95.5 95.5 02/16/25 07:30 Mechanical Ventilator+ 02/15/25 18:27 0 Total Intake and Output 02/15/25 02/15/25 02/16/25 15:00 23:00 07:00 Intake Total 3329.50 ml 2386.50 ml Output Total 1300 ml Balance 3329.50 ml 1086.50 ml medications Current Medications Medications Dose Ordered Sig/Lex Route Start Time Stop Time Status Last Admin Dose Admin Midazolam HCl 50 ml @ 1 mls/hr Q24H IV 02/15/25 17:30 02/16/25 12:07 8 MLS/HR Norepinephrine Bitartrate 250 ml @ 3.75 mls/hr Q24H IV 02/15/25 19:45 02/15/25 20:47 3.75 MLS/HR Vancomycin HCl 0 ml @ 0 mls/hr UD IV 02/15/25 19:45 UNV Enoxaparin Sodium 30 mg DAILY SC 02/16/25 10:00 02/16/25 10:28 30 MG Vancomycin HCl 0 ml @ 0 mls/hr UD IV 02/15/25 19:45 Cefepime HCl 50 ml @ 12.5 mls/hr Q12H IV 02/16/25 10:00 02/16/25 10:32 12.5 MLS/HR Ondansetron HCl 4 mg Q4HP PRN IV 02/15/25 19:45 Insulin Glargine 15 units DAILY SC 02/16/25 10:00 Cancel Vancomycin HCl 100 ml @ 200 mls/hr Q12H IV 02/16/25 12:00 02/16/25 13:17 200 MLS/HR Potassium Chloride 20 meq/ Dextrose 1,010 ml @ 100 mls/hr Q10H6M IV 02/16/25 10:15 02/16/25 11:27 100 MLS/HR Fluconazole 100 ml @ 100 mls/hr DAILY IV 02/16/25 10:15 02/16/25 10:44 100 MLS/HR Diagnostic Test (Pha) 1 strip IQ4HR 02/16/25 12:00 02/16/25 12:25 1 STRIP Insulin Human Regular IQ4HR SC 02/16/25 12:00 Dextrose 50 ml UD PRN IV 02/16/25 10:15 02/16/25 12:30 50 ML Purified Water 200 ml Q6HR GT 02/16/25 12:00 02/16/25 12:00 200 ML laboratory and microbiology Laboratory Tests 02/16/25 07:42 Test 02/16/25 07:42 Range/Units Serum Glucose 123 H 74-106 mg/dL Assessment/Plan Altered mental status Acute hypoxemic respiratory failure Acute kidney injury DKA severe metabolic acidosis Patient is seen and examined in the emergency room events blood glucose better abg improved off pressors Management plan vent support IV fluids/insulin per protocol sedation holiday and precedex in am start weaning if following commands continue supportive care Empiric antibiotics Deescalate based on cultures Monitor renal function Critical care time 35 minutes Plan discussed with: Other MARIBEL MERCER MD February 16, 2025 13:40
[2025-02-16 14:07] LABS: Anion Gap 7 (5-15)
[2025-02-16 14:08] LABS: Calcium 7.7 mg/dL (8.7-10.4); Carbon Dioxide 36 mmol/L (20-31); Chloride 113 mmol/L (98-107); Potassium 3.3 mmol/L (3.5-5.1); Sodium 156 mmol/L (136-145)
[2025-02-16 14:13] LABS: BUN/Creatinine Ratio 23.7 (10.0-20.0); Blood Urea Nitrogen 22 mg/dL (9-23); Glucose 169 mg/dL (74-106)
[2025-02-16] MEDS ORDERED: Glucerna 1.2 Cal 1Liter BOTTLE GT SCH (15:15)
--- NOTE | 2025-02-16 15:54 | DVHPN2 ---
Subjective Patient chemically sedated Reviewed: Care Plan, H&P, Labs, Medications Changes from previous H/P or p: No Changes General: Per HPI Objective Vitals Vital Signs Date Time Temp Pulse Resp B/P (MAP) Pulse Ox O2 Delivery O2 Flow Rate FiO2 02/16/25 14:01 110 14 117/58 (77) 100 30 02/16/25 11:00 95.5 95.5 02/16/25 07:30 Mechanical Ventilator+ 02/15/25 18:27 0 Intake/Output Intake and Output 02/16/25 07:00 Intake Total 5716.00 ml Output Total 1300 ml Balance 4416.00 ml Intake IV Total 5716.00 ml Output Urine Total 1300 ml General Appearance: mild distress HEENT: Atraumatic, PERRLA Lungs: Clear to auscultation, Normal air movement, Other (Mechanical ventilation) Cardiovascular: Normal S1, Normal S2, Other (Sinus tachycardia) Genitourinary: No Apparent Abnormalities (Mike catheter) Skin: Dry, Intact Medications Current Medications Medications Dose Ordered Sig/Lex Route Start Time Stop Time Status Last Admin Dose Admin Midazolam HCl 50 ml @ 1 mls/hr Q24H IV 02/15/25 17:30 02/16/25 12:07 8 MLS/HR Norepinephrine Bitartrate 250 ml @ 3.75 mls/hr Q24H IV 02/15/25 19:45 02/15/25 20:47 3.75 MLS/HR Vancomycin HCl 0 ml @ 0 mls/hr UD IV 02/15/25 19:45 UNV Enoxaparin Sodium 30 mg DAILY SC 02/16/25 10:00 02/16/25 10:28 30 MG Vancomycin HCl 0 ml @ 0 mls/hr UD IV 02/15/25 19:45 Cefepime HCl 50 ml @ 12.5 mls/hr Q12H IV 02/16/25 10:00 02/16/25 10:32 12.5 MLS/HR Ondansetron HCl 4 mg Q4HP PRN IV 02/15/25 19:45 Insulin Glargine 15 units DAILY SC 02/16/25 10:00 Cancel Vancomycin HCl 100 ml @ 200 mls/hr Q12H IV 02/16/25 12:00 02/16/25 13:17 200 MLS/HR Potassium Chloride 20 meq/ Dextrose 1,010 ml @ 100 mls/hr Q10H6M IV 02/16/25 10:15 02/16/25 11:27 100 MLS/HR Fluconazole 100 ml @ 100 mls/hr DAILY IV 02/16/25 10:15 02/16/25 10:44 100 MLS/HR Diagnostic Test (Pha) 1 strip IQ4HR 02/16/25 12:00 02/16/25 12:25 1 STRIP Insulin Human Regular IQ4HR SC 02/16/25 12:00 Dextrose 50 ml UD PRN IV 02/16/25 10:15 02/16/25 12:30 50 ML Purified Water 200 ml Q6HR GT 02/16/25 12:00 02/16/25 12:00 200 ML Enteral Nutritional Formula 1,000 ml 30ML/HR GT 02/16/25 15:15 Laboratory Results Laboratory Tests 02/16/25 07:42 02/16/25 13:38 Chemistry Test 02/15/25 16:31 02/15/25 19:47 02/15/25 20:28 02/16/25 01:34 Calcium Level 9.2 mg/dL (8.7-10.4) 8.6 mg/dL (8.7-10.4) L 7.0 mg/dL (8.7-10.4) L Magnesium Level 2.5 mg/dL (1.6-2.6) Phosphorus Level 7.0 mg/dL (2.4-5.1) H Test 02/16/25 07:42 02/16/25 13:38 Calcium Level 8.4 mg/dL (8.7-10.4) L 7.7 mg/dL (8.7-10.4) L Magnesium Level 1.8 mg/dL (1.6-2.6) Phosphorus Level 1.6 mg/dL (2.4-5.1) L Coagulation Test 02/15/25 20:28 Prothrombin Time 9.7 sec (9.3-11.8) Prothrombin Time INR 0.91 (0.9-1.15) Activated Partial Thromboplast Time 27.3 SEC (24.5-34.5) Urinalysis Test 02/15/25 20:28 Urine Color Light-yellow (Yellow) Urine Clarity Clear (Clear) Urine pH 5.5 (5.0-9.0) Urine Specific [place] 1.020 (1.001-1.035) Urine Protein 1+ (Negative) H Urine Ketones 3+ (Negative) H Urine Blood 1+ /uL (Negative) H Urine Nitrite Negative (Negative) Urine Bilirubin Negative (Negative) Urine Urobilinogen Normal mg/dL (Negative) Urine Leukocyte Esterase Negative /uL (Negative) Urine RBC 8 /hpf (0 - 4) Urine Microscopic WBC 1 /HPF (0-5) Urine Squamous Epithelial Cells Few /hpf (<5) Urine Bacteria Few /hpf (None Seen) H Urine Mucus Few (None Seen) Urine Yeast (Budding) Many /hpf (None Seen) Urine Glucose 4+ mg/dL (Normal) H Blood Gas Results Test 02/15/25 16:31 02/15/25 18:08 02/15/25 21:40 02/16/25 01:12 Arterial Blood pH 6.867 (7.350-7.450) 6.858 (7.350-7.450) 7.313 (7.350-7.450) 7.424 (7.350-7.450) FiO2 % 21.0 60.0 30.0 30.0 Test 02/16/25 07:20 Arterial Blood pH 7.589 (7.350-7.450) FiO2 % 30.0 Microbiology Microbiology Date/Time Source Procedure Growth Status 02/15/25 20:28 Urine - [place] Urine Culture - Preliminary Resulted 02/15/25 17:30 Trachea Gram Stain - Final Resulted 02/15/25 17:30 Trachea Respiratory Culture - Preliminary Resulted Labs and/or images reviewed: Labs reviewed by me, Image(s) reviewed by me Assessment/Plan Assessment/Plan Impression: -acute respiratory failure with mechanical ventilation -complicated cystitis with yeast -hypernatremia -metabolic encephalopathy -diabetes mellitus -diabetic ketoacidosis -leukocytosis, rule out sepsis -acute kidney injury, vasomotor nephropathy -septic shock -hypoglycemia Hypokalemia Plan: -continue current ventilator settings -continue empiric antibiotic therapy -add micafungin given yeast in the urine -stop long-acting insulin, regular insulin sliding scale -continue D5 W with 40 mEq potassium chloride -start tube feeding with Glucerna -K-Phos rider -serial BMP -repeat labs, chest x-ray, ABG in a.m. Critical care time spent with patient discussing and formulating plan of care: 40 minutes. This does not include time spent performing procedures. This medical document was created using an electronic medical record system with [employer] dictation system. Although this document has been carefully reviewed, there may still be some phonetic and typographical errors. These areas are purely typographical due to imperfections of the software programs, and do not reflect any compromise in the patient's medical care. Plan discussed with: Patient, Other (RN) My Orders Orders - KO GARCIA NP Procedure Category Date Status Time D5w 5% (Dextrose 5%) PHA 02/16/25 In Process W/Potassium Chlorid 10:15 Fluconazole PHA 02/16/25 In Process 200mg/100ml (Diflucan 10:15 Glucose Blood PHA 02/16/25 In Process (Accu-Chek Comfort 12:00 Insulin R (Human) PHA 02/16/25 In Process (Insulin R) 12:00 Dextrose 50% Syringe PHA 02/16/25 In Process 10:15 Free Water PHA 02/16/25 In Process 12:00 Ventilator Orders RT 02/16/25 Transmitted 10:47 Nutritional PHA 02/16/25 In Process Supplements (Glucerna 15:15 Potassium Phosphate PHA 02/16/25 In Process 15:15 Date of Service: February 16, 2025 Billing Provider: KO GARCIA NP Common Visit Codes: [id number] CARE 30-74 MIN KO GARCIA NP February 16, 2025 15:54
[2025-02-16] MEDS: POTASSIUM PHOSPHATE 22 MEQ in SODIUM CHL 0.9% 100 ML IV ONE (17:52)
[2025-02-16 19:52] LABS: Anion Gap 8 (5-15)
[2025-02-16 19:57] LABS: Blood Urea Nitrogen 15 mg/dL (9-23)
[2025-02-16 20:09] LABS: Calcium 7.7 mg/dL (8.7-10.4); Carbon Dioxide 32 mmol/L (20-31); Chloride 114 mmol/L (98-107); Glucose 110 mg/dL (74-106); Potassium 3.1 mmol/L (3.5-5.1); Sodium 154 mmol/L (136-145)
[2025-02-17] VITALS (103 sets, daily range): BP systolic 86–139; BP diastolic 51–79; PULSE 78–107; RESP 8–21; TEMP 97.9–99.7; O2SAT 95–100
[2025-02-17 01:42] LABS: Anion Gap 9 (5-15); Carbon Dioxide 30 mmol/L (20-31); Chloride 108 mmol/L (98-107); Sodium 147 mmol/L (136-145)
[2025-02-17 01:47] LABS: BUN/Creatinine Ratio 15.3 (10.0-20.0); Blood Urea Nitrogen 11 mg/dL (9-23)
[2025-02-17 01:48] LABS: Glucose 150 mg/dL (74-106)
[2025-02-17] MEDS: POTASSIUM CHL 20MEQ/100ML 100 ML IV SCH (03:20)
[2025-02-17 06:14] LABS: Base Excess 1.5 mmol/L (-2.0-3.0)
[2025-02-17 06:29] LABS: Anion Gap 8 (5-15); Carbon Dioxide 30 mmol/L (20-31); Potassium 3.6 mmol/L (3.5-5.1)
[2025-02-17 06:31] LABS: Basophils # (auto) 0 10 ^3/uL (0-0.2); Basophils % (auto) 0.1 % (0.0-2.0); Eosinophils # (auto) 0 10 ^3/uL (0-0.8); Hematocrit 34.7 % (36.0-46.0); Lymphocytes # (auto) 1.5 10 ^3/uL (0.4-5.4); Lymphocytes % (auto) 12.3 % (10.0-50.0); Mean Corpuscular Hemoglobin 28.3 pg (28.0-32.0); Mean Corpuscular Hgb Conc. 34.6 g/dL (32.0-36.0); Mean Corpuscular Volume 81.6 fL (80.0-100.0); Monocytes # (auto) 1.1 10 ^3/uL (0-1.3); Monocytes % (auto) 8.8 % (0.0-12.0); Neutrophils # (auto) 9.8 10 ^3/uL (1.6-8.6); Neutrophils % (auto) 78.8 % (37.0-80.0); Platelet Count (auto) 203 10^3/uL (140-450); Red Blood Cells 4.25 10^6/uL (4.0-5.20); Red Cell Distribution Width 13.9 % (11.8-14.3); White Blood Cell 12.4 10^3/uL (4.4-10.8)
[2025-02-17 06:36] LABS: BUN/Creatinine Ratio 14.5 (10.0-20.0); Blood Urea Nitrogen 10 mg/dL (9-23); Calcium 7.3 mg/dL (8.7-10.4); Chloride 108 mmol/L (98-107); Sodium 146 mmol/L (136-145)
--- NOTE | 2025-02-17 06:36 | DVH ---
EXAM: XR Chest, 1 View CLINICAL INDICATION: VENTED TECHNIQUE: Frontal view of the chest. COMPARISON: XY CHEST PORTABLE on DOS: 02/15/25, XY CHEST PORTABLE on DOS: 02/15/25, XY CHEST PORTABLE on DOS: 02/04/25, CHEST PORTABLE on DOS: 10/22/21, CHEST PORTABLE on DOS: 10/13/21 FINDINGS: LUNGS AND PLEURAL SPACES: Pulmonary venous congestion. No consolidation. No pneumothorax. HEART: Unremarkable. No cardiomegaly. MEDIASTINUM: Unremarkable. Normal mediastinal contour. BONES/JOINTS: Unremarkable. No acute fracture. TUBES, LINES AND DEVICES: Right internal jugular central venous catheter tip in the superior vena c antonio. The endotracheal tube (ETT) is in satisfactory position. Enteric tube tip cannot be seen but i s below the diaphragm. OTHER FINDINGS: . IMPRESSION: Pulmonary venous congestion.
[2025-02-17 06:48] LABS: Glucose 167 mg/dL (74-106)
[2025-02-17] MEDS: ENOXAPARIN SOD 40 MG/0.4 ML SYRINGE SC SCH (09:09)
--- NOTE | 2025-02-17 11:34 | DVHPN2 ---
Subjective Patient chemically sedated Reviewed: Care Plan, H&P, Labs, Medications Changes from previous H/P or p: No Changes General: Per HPI Objective Vitals Vital Signs Date Time Temp Pulse Resp B/P (MAP) Pulse Ox O2 Delivery O2 Flow Rate FiO2 02/17/25 10:30 129/69 02/17/25 10:15 98.4 101 14 100 209.1 02/17/25 10:00 Mechanical Ventilator+ 30 30 02/15/25 18:27 0 Intake/Output Intake and Output 02/17/25 07:00 Intake Total 2524.25 ml Output Total 1275 ml Balance 1249.25 ml Intake Oral 400 ml IV Total 2124.25 ml Output Urine Total 1275 ml # Bowel Movements 1 General Appearance: mild distress HEENT: Atraumatic, PERRLA Lungs: Clear to auscultation, Normal air movement, Other (Mechanical ventilation) Cardiovascular: Normal S1, Normal S2, Other (Sinus tachycardia) Genitourinary: No Apparent Abnormalities (Mike catheter) Skin: Dry, Intact Medications Current Medications Medications Dose Ordered Sig/Lex Route Start Time Stop Time Status Last Admin Dose Admin Midazolam HCl 50 ml @ 1 mls/hr Q24H IV 02/15/25 17:30 02/17/25 08:07 6 MLS/HR Norepinephrine Bitartrate 250 ml @ 3.75 mls/hr Q24H IV 02/15/25 19:45 02/15/25 20:47 3.75 MLS/HR Vancomycin HCl 0 ml @ 0 mls/hr UD IV 02/15/25 19:45 UNV Vancomycin HCl 0 ml @ 0 mls/hr UD IV 02/15/25 19:45 Cefepime HCl 50 ml @ 12.5 mls/hr Q12H IV 02/16/25 10:00 02/17/25 09:09 12.5 MLS/HR Ondansetron HCl 4 mg Q4HP PRN IV 02/15/25 19:45 Insulin Glargine 15 units DAILY SC 02/16/25 10:00 Cancel Vancomycin HCl 100 ml @ 200 mls/hr Q12H IV 02/16/25 12:00 02/17/25 00:10 200 MLS/HR Potassium Chloride 20 meq/ Dextrose 1,010 ml @ 100 mls/hr Q10H6M IV 02/16/25 10:15 02/17/25 09:10 100 MLS/HR Fluconazole 100 ml @ 100 mls/hr DAILY IV 02/16/25 10:15 02/17/25 09:09 100 MLS/HR Diagnostic Test (Pha) 1 strip IQ4HR 02/16/25 12:00 02/17/25 08:07 1 STRIP Insulin Human Regular IQ4HR SC 02/16/25 12:00 02/17/25 03:33 2 UNITS Dextrose 50 ml UD PRN IV 02/16/25 10:15 02/16/25 12:30 50 ML Purified Water 200 ml Q6HR GT 02/16/25 12:00 02/17/25 05:16 200 ML Enteral Nutritional Formula 1,000 ml 30ML/HR GT 02/16/25 15:15 Enoxaparin Sodium 40 mg DAILY SC 02/17/25 10:00 02/17/25 09:09 40 MG Laboratory Results Laboratory Tests 02/17/25 05:15 Chemistry Test 02/16/25 13:38 02/16/25 19:25 02/17/25 01:20 02/17/25 05:15 Calcium Level 7.7 mg/dL (8.7-10.4) L 7.7 mg/dL (8.7-10.4) L 7.0 mg/dL (8.7-10.4) L 7.3 mg/dL (8.7-10.4) L Urinalysis Test 02/15/25 20:28 Urine Color Light-yellow (Yellow) Urine Clarity Clear (Clear) Urine pH 5.5 (5.0-9.0) Urine Specific [place] 1.020 (1.001-1.035) Urine Protein 1+ (Negative) H Urine Ketones 3+ (Negative) H Urine Blood 1+ /uL (Negative) H Urine Nitrite Negative (Negative) Urine Bilirubin Negative (Negative) Urine Urobilinogen Normal mg/dL (Negative) Urine Leukocyte Esterase Negative /uL (Negative) Urine RBC 8 /hpf (0 - 4) Urine Microscopic WBC 1 /HPF (0-5) Urine Squamous Epithelial Cells Few /hpf (<5) Urine Bacteria Few /hpf (None Seen) H Urine Mucus Few (None Seen) Urine Yeast (Budding) Many /hpf (None Seen) Urine Glucose 4+ mg/dL (Normal) H Blood Gas Results Test 02/17/25 06:09 Arterial Blood pH 7.489 (7.350-7.450) FiO2 % 30.0 Microbiology Microbiology Date/Time Source Procedure Growth Status 02/15/25 20:28 Urine - Mike Port Urine Culture - Preliminary Resulted 02/15/25 18:01 Blood Blood Culture - Preliminary NO GROWTH AFTER 24 HOURS OF INCUBATION. Resulted 02/15/25 17:30 Trachea Gram Stain - Final Resulted 02/15/25 17:30 Trachea Respiratory Culture - Preliminary Resulted Labs and/or images reviewed: Labs reviewed by me, Image(s) reviewed by me Assessment/Plan Assessment/Plan Impression: -acute respiratory failure with mechanical ventilation -complicated cystitis with yeast -hypernatremia -metabolic encephalopathy -diabetes mellitus -diabetic ketoacidosis -leukocytosis, rule out sepsis -acute kidney injury, vasomotor nephropathy -septic shock -hypoglycemia Hypokalemia Plan: Events: DKA resolved. Glucose now maintained without any periods of hypoglycemia. Hypernatremia also resolved. Weaned sedation and performed spontaneous breathing trial. -continue current ventilator settings -continue empiric antibiotic therapy -add micafungin given yeast in the urine -stop long-acting insulin, regular insulin sliding scale -electrolyte replacement as needed. -serial BMP -repeat labs, chest x-ray, ABG in a.m. Critical care time spent with patient discussing and formulating plan of care: 40 minutes. This does not include time spent performing procedures. This medical document was created using an electronic medical record system with [employer] dictation system. Although this document has been carefully reviewed, there may still be some phonetic and typographical errors. These areas are purely typographical due to imperfections of the software programs, and do not reflect any compromise in the patient's medical care. Plan discussed with: Patient, Other (RN) My Orders Orders - KO GARCIA NP Procedure Category Date Status Time Nutritional PHA 02/16/25 In Process Supplements (Glucerna 15:15 Apply Z-Guard DISHA 02/16/25 In Process 15:15 * Wound Consult CONS 02/16/25 Transmitted * Dietary Consult CONS 02/16/25 Transmitted 17:05 Chest Portable XY 02/17/25 Resulted 04:00 Abg W/ Co-Ox RT 02/17/25 Logged 06:30 Cpap/Sed Vacation Med ORDERS 02/17/25 Transmitted Weaning 09:47 Cpap Trial For Am ORDERS 02/17/25 Transmitted 09:47 Date of Service: February 17, 2025 Billing Provider: KO GARCIA NP Common Visit Codes: [id number] CARE 30-74 MIN KO GARCIA NP February 17, 2025 11:34
--- NOTE | 2025-02-17 12:20 | DVHPN2 ---
Progress Note - Dictate Date Seen: February 17, 2025 Has the PT tested + for MRSA If YES, has PT been informed?: No Medical Necessity Reason Pt with a Central, PICC or Fol: No vital signs Vital Sign Date Time Temp Pulse Resp B/P (MAP) Pulse Ox O2 Delivery O2 Flow Rate FiO2 02/17/25 11:30 124/66 02/17/25 10:15 98.4 101 14 100 209.1 02/17/25 10:00 Mechanical Ventilator+ 30 30 02/15/25 18:27 0 Total Intake and Output 02/16/25 02/16/25 02/17/25 15:00 23:00 07:00 Intake Total 350 ml 621.25 ml 1553.0 ml Output Total 675 ml 600 ml Balance 350 ml -53.75 ml 953.0 ml medications Current Medications Medications Dose Ordered Sig/Lex Route Start Time Stop Time Status Last Admin Dose Admin Midazolam HCl 50 ml @ 1 mls/hr Q24H IV 02/15/25 17:30 02/17/25 08:07 6 MLS/HR Norepinephrine Bitartrate 250 ml @ 3.75 mls/hr Q24H IV 02/15/25 19:45 02/15/25 20:47 3.75 MLS/HR Vancomycin HCl 0 ml @ 0 mls/hr UD IV 02/15/25 19:45 UNV Vancomycin HCl 0 ml @ 0 mls/hr UD IV 02/15/25 19:45 Cefepime HCl 50 ml @ 12.5 mls/hr Q12H IV 02/16/25 10:00 02/17/25 09:09 12.5 MLS/HR Ondansetron HCl 4 mg Q4HP PRN IV 02/15/25 19:45 Insulin Glargine 15 units DAILY SC 02/16/25 10:00 Cancel Vancomycin HCl 100 ml @ 200 mls/hr Q12H IV 02/16/25 12:00 02/17/25 00:10 200 MLS/HR Potassium Chloride 20 meq/ Dextrose 1,010 ml @ 100 mls/hr Q10H6M IV 02/16/25 10:15 02/17/25 09:10 100 MLS/HR Fluconazole 100 ml @ 100 mls/hr DAILY IV 02/16/25 10:15 02/17/25 09:09 100 MLS/HR Diagnostic Test (Pha) 1 strip IQ4HR 02/16/25 12:00 02/17/25 12:15 1 STRIP Insulin Human Regular IQ4HR SC 02/16/25 12:00 02/17/25 12:07 2 UNITS Dextrose 50 ml UD PRN IV 02/16/25 10:15 02/16/25 12:30 50 ML Purified Water 200 ml Q6HR GT 02/16/25 12:00 02/17/25 11:53 200 ML Enteral Nutritional Formula 1,000 ml 30ML/HR GT 02/16/25 15:15 Enoxaparin Sodium 40 mg DAILY SC 02/17/25 10:00 02/17/25 09:09 40 MG laboratory and microbiology Laboratory Tests 02/17/25 05:15 Test 02/17/25 05:15 Range/Units Serum Glucose 167 H 74-106 mg/dL Assessment/Plan Altered mental status Acute hypoxemic respiratory failure Acute kidney injury DKA severe metabolic acidosis Patient is seen and examined in the emergency room events none still on versed vent peep 5 Fi02 =30% abg reviewed Management plan vent support IV fluids/insulin per protocol sedation holiday and precedex start weaning off the vent if following commands continue supportive care Empiric antibiotics Deescalate based on cultures Monitor renal function Critical care time 35 minutes Dietary Evaluation Review Comments: Nutrition Recommendation: 1) TF Glucerna 1.2 Lan @ 45ml/hr x 24 hr (goal). Start @ 20ml/hr, increase 10ml/hr Q4H until goal rate is reached. TF at goal volume provides 100% energy & protein needs - 1296 kcal, 65 gm protein, 869 ml free water 2) Water flush 100ml Q6H if allowed 3) TPN if NPO>7 days 4) Vit C 200mg daily, zinc sulfate 220mg BID x 10 days, Chas 1 pk BID, MVI w/ minerals 1 tab daily 5) Monitor I/O, weight trend, lab values and skin integrity Expected Outcomes/Goals: To meet >75% estimated needs partial thickness wound to improve Fu 2-3 days Plan discussed with: Other (rn) MARIBEL MERCER MD February 17, 2025 12:20
[2025-02-17 13:59] LABS: Potassium 3.8 mmol/L (3.5-5.1)
[2025-02-17 14:00] LABS: Anion Gap 4 (5-15); Carbon Dioxide 30 mmol/L (20-31)
[2025-02-17 14:05] LABS: BUN/Creatinine Ratio 15.2 (10.0-20.0); Blood Urea Nitrogen 10 mg/dL (9-23); Calcium 8.1 mg/dL (8.7-10.4); Chloride 113 mmol/L (98-107); Sodium 147 mmol/L (136-145)
[2025-02-17 14:08] LABS: Glucose 142 mg/dL (74-106)
[2025-02-17] MEDS: CEFEPIME 1GM/ 50ML 50 ML IV SCH (20:04)
[2025-02-17 20:08] LABS: Anion Gap 5 (5-15); Carbon Dioxide 27 mmol/L (20-31); Sodium 143 mmol/L (136-145)
[2025-02-17 20:14] LABS: BUN/Creatinine Ratio 14.5 (10.0-20.0)
[2025-02-17 20:38] LABS: Blood Urea Nitrogen 9 mg/dL (9-23); Calcium 8.5 mg/dL (8.7-10.4); Chloride 111 mmol/L (98-107); Glucose 263 mg/dL (74-106)
[2025-02-17] MEDS: DEXMEDETOMIDINE HCL IN D5W 100 ML IV SCH (20:38)
[2025-02-17] MEDS: VANCOMYCIN 750mg/150ml 150 ML IV SCH (23:41)
[2025-02-18] VITALS (119 sets, daily range): BP systolic 79–141; BP diastolic 46–84; PULSE 72–106; RESP 12–25; TEMP 97–99.9; O2SAT 97–100
[2025-02-18] MEDS: SOD CHL 0.45% 1,000 ML IV SCH
[2025-02-18 05:51] LABS: Basophils # (auto) 0 10 ^3/uL (0-0.2); Basophils % (auto) 0.6 % (0.0-2.0); Eosinophils # (auto) 0 10 ^3/uL (0-0.8); Eosinophils % (auto) 0.3 % (0.0-7.0); Hematocrit 34.4 % (36.0-46.0); Hemoglobin 11.9 g/dL (12.2-16.2); Lymphocytes # (auto) 1.2 10 ^3/uL (0.4-5.4); Mean Corpuscular Hemoglobin 28.4 pg (28.0-32.0); Mean Corpuscular Hgb Conc. 34.5 g/dL (32.0-36.0); Mean Corpuscular Volume 82.3 fL (80.0-100.0); Monocytes # (auto) 0.8 10 ^3/uL (0-1.3); Monocytes % (auto) 9.1 % (0.0-12.0); Neutrophils # (auto) 6.4 10 ^3/uL (1.6-8.6); Platelet Count (auto) 197 10^3/uL (140-450); Red Blood Cells 4.18 10^6/uL (4.0-5.20); Red Cell Distribution Width 14.1 % (11.8-14.3); White Blood Cell 8.5 10^3/uL (4.4-10.8)
--- NOTE | 2025-02-18 05:59 | DVH ---
CHEST RADIOGRAPH Indication: INTUBATED Technique: Single frontal view of the chest was obtained Comparison: XY CHEST PORTABLE on DOS: 02/17/25 FINDINGS: Lines and Tubes: Endotracheal tube terminates 4.4 cm above the jami. Central venous catheter termin ates in the right atrium. The enteric tube terminates in the stomach. Lungs: Pulmonary venous congestion, unchanged. Pleura: No effusion. No pneumothorax. Cardiomediastinal contours: Unremarkable Bones: No acute osseous abnormality. IMPRESSION: 1. Stable pulmonary venous congestion.
[2025-02-18 06:03] LABS: Anion Gap 6 (5-15); Carbon Dioxide 28 mmol/L (20-31)
[2025-02-18 06:05] LABS: Calcium 8.6 mg/dL (8.7-10.4); Chloride 111 mmol/L (98-107); Potassium 3.4 mmol/L (3.5-5.1); Sodium 145 mmol/L (136-145)
[2025-02-18 06:09] LABS: BUN/Creatinine Ratio 17.9 (10.0-20.0); Blood Urea Nitrogen 10 mg/dL (9-23); Glucose 82 mg/dL (74-106)
[2025-02-18 06:46] LABS: Base Excess 1.2 mmol/L (-2.0-3.0)
[2025-02-18] MEDS: POTASSIUM CHL 20MEQ/100ML 100 ML IV SCH (10:06)
--- NOTE | 2025-02-18 12:43 | DVHPN2 ---
Subjective Patient chemically sedated Reviewed: Care Plan, H&P, Labs, Medications Changes from previous H/P or p: No Changes General: Per HPI Objective Vitals Vital Signs Date Time Temp Pulse Resp B/P (MAP) Pulse Ox O2 Delivery O2 Flow Rate FiO2 02/18/25 11:48 92 14 128/74 (92) 100 30 02/18/25 10:00 Mechanical Ventilator+ 02/18/25 09:30 99.1 210.4 Intake/Output Intake and Output 02/18/25 07:00 Intake Total 3238.71 ml Output Total 2900 ml Balance 338.71 ml Intake Oral 600 ml IV Total 2638.71 ml Output Urine Total 2900 ml # Bowel Movements 3 General Appearance: mild distress, Other (Intubated sedated) HEENT: Atraumatic, PERRLA Lungs: Clear to auscultation, Normal air movement, Other (Mechanical ventilation) Cardiovascular: Normal S1, Normal S2, Other (Sinus tachycardia) Genitourinary: No Apparent Abnormalities (Mike catheter) Skin: Dry, Intact Medications Current Medications Medications Dose Ordered Sig/Lex Route Start Time Stop Time Status Last Admin Dose Admin Midazolam HCl 50 ml @ 1 mls/hr Q24H IV 02/15/25 17:30 02/17/25 08:07 6 MLS/HR Norepinephrine Bitartrate 250 ml @ 3.75 mls/hr Q24H IV 02/15/25 19:45 02/18/25 01:49 3.75 MLS/HR Vancomycin HCl 0 ml @ 0 mls/hr UD IV 02/15/25 19:45 UNV Ondansetron HCl 4 mg Q4HP PRN IV 02/15/25 19:45 Insulin Glargine 15 units DAILY SC 02/16/25 10:00 Cancel Fluconazole 100 ml @ 100 mls/hr DAILY IV 02/16/25 10:15 02/18/25 09:51 100 MLS/HR Diagnostic Test (Pha) 1 strip IQ4HR 02/16/25 12:00 02/18/25 12:22 1 STRIP Insulin Human Regular IQ4HR SC 02/16/25 12:00 02/18/25 12:25 4 UNITS Dextrose 50 ml UD PRN IV 02/16/25 10:15 02/16/25 12:30 50 ML Purified Water 200 ml Q6HR GT 02/16/25 12:00 02/18/25 05:23 200 ML Enteral Nutritional Formula 1,000 ml 30ML/HR GT 02/16/25 15:15 Enoxaparin Sodium 40 mg DAILY SC 02/17/25 10:00 02/18/25 09:51 40 MG Sodium Chloride 1,000 ml @ 75 mls/hr [id number] IV 02/18/25 00:00 02/18/25 00:00 75 MLS/HR Potassium Chloride 100 ml @ 50 mls/hr Q2H IV 02/18/25 09:15 02/18/25 13:14 02/18/25 11:02 50 MLS/HR Laboratory Results Laboratory Tests 02/18/25 05:03 Chemistry Test 02/17/25 13:42 02/17/25 19:53 02/18/25 05:03 Calcium Level 8.1 mg/dL (8.7-10.4) L 8.5 mg/dL (8.7-10.4) L 8.6 mg/dL (8.7-10.4) L Urinalysis Test 02/15/25 20:28 Urine Color Light-yellow (Yellow) Urine Clarity Clear (Clear) Urine pH 5.5 (5.0-9.0) Urine Specific [place] 1.020 (1.001-1.035) Urine Protein 1+ (Negative) H Urine Ketones 3+ (Negative) H Urine Blood 1+ /uL (Negative) H Urine Nitrite Negative (Negative) Urine Bilirubin Negative (Negative) Urine Urobilinogen Normal mg/dL (Negative) Urine Leukocyte Esterase Negative /uL (Negative) Urine RBC 8 /hpf (0 - 4) Urine Microscopic WBC 1 /HPF (0-5) Urine Squamous Epithelial Cells Few /hpf (<5) Urine Bacteria Few /hpf (None Seen) H Urine Mucus Few (None Seen) Urine Yeast (Budding) Many /hpf (None Seen) Urine Glucose 4+ mg/dL (Normal) H Blood Gas Results Test 02/18/25 06:35 Arterial Blood pH 7.492 (7.350-7.450) FiO2 % 30.0 Microbiology Microbiology Date/Time Source Procedure Growth Status 02/15/25 20:28 Urine - Mike Port Urine Culture - Final Complete 02/15/25 18:01 Blood Blood Culture - Preliminary NO GROWTH AFTER 48 HOURS OF INCUBATION. Resulted 02/15/25 17:30 Trachea Gram Stain - Final Complete 02/15/25 17:30 Trachea Respiratory Culture - Final Complete Labs and/or images reviewed: Labs reviewed by me, Image(s) reviewed by me Assessment/Plan Assessment/Plan Impression: -acute respiratory failure with mechanical ventilation -complicated cystitis with yeast -hypernatremia -metabolic encephalopathy -diabetes mellitus -diabetic ketoacidosis -leukocytosis, rule out sepsis -acute kidney injury, vasomotor nephropathy -septic shock -hypoglycemia Hypokalemia Plan: Events: DKA resolved. Patient is still slow to awaken despite sedation r emoval. CPAP trial once patient was awake and following commands. -continue current ventilator settings -continue empiric antibiotic therapy -add micafungin given yeast in the urine -stop long-acting insulin, regular insulin sliding scale -electrolyte replacement as needed. -serial BMP -repeat labs, chest x-ray, ABG in a.m. Critical care time spent with patient discussing and formulating plan of care: 40 minutes. This does not include time spent performing procedures. This medical document was created using an electronic medical record system with [employer] dictation system. Although this document has been carefully reviewed, there may still be some phonetic and typographical errors. These areas are purely typographical due to imperfections of the software programs, and do not reflect any compromise in the patient's medical care. Plan discussed with: Patient, Other (RN) My Orders Orders - KO GARCIA NP Procedure Category Date Status Time Chest Portable XY 02/18/25 Resulted 04:00 Abg W/ Co-Ox RT 02/18/25 Logged 05:00 Mrsa Screen SERGE 02/18/25 In Process 03:35 Potassium Chl PHA 02/18/25 In Process 20meq/100ml 09:15 Comprehensive LAB 02/19/25 Verified Metabolic Panel 04:00 Potassium LAB 02/18/25 Logged 13:00 Magnesium LAB 02/18/25 Logged 13:00 Phosphorus LAB 02/18/25 Logged 13:00 Date of Service: February 18, 2025 Billing Provider: KO GARCIA NP Common Visit Codes: [id number] CARE 30-74 MIN KO GARCIA NP February 18, 2025 12:43
[2025-02-18 13:42] LABS: Potassium 3.9 mmol/L (3.5-5.1)
[2025-02-18 13:48] LABS: Magnesium 1.6 mg/dL (1.6-2.6)
--- NOTE | 2025-02-18 14:38 | DVHPN2 ---
Progress Note - Dictate Date Seen: February 18, 2025 Has the PT tested + for MRSA If YES, has PT been informed?: No Medical Necessity Reason Pt with a Central, PICC or Fol: No vital signs Vital Sign Date Time Temp Pulse Resp B/P (MAP) Pulse Ox O2 Delivery O2 Flow Rate FiO2 02/18/25 14:12 96 14 122/67 (85) 100 30 02/18/25 14:04 Mechanical Ventilator+ 02/18/25 13:45 99.7 211.5 Total Intake and Output 02/17/25 02/17/25 02/18/25 13:00 21:00 05:00 Intake Total 1133 ml 1202.71 ml 815.0 ml Output Total 1850 ml Balance 1133 ml -647.29 ml 815.0 ml medications Current Medications Medications Dose Ordered Sig/Lex Route Start Time Stop Time Status Last Admin Dose Admin Midazolam HCl 50 ml @ 1 mls/hr Q24H IV 02/15/25 17:30 02/17/25 08:07 6 MLS/HR Norepinephrine Bitartrate 250 ml @ 3.75 mls/hr Q24H IV 02/15/25 19:45 02/18/25 01:49 3.75 MLS/HR Vancomycin HCl 0 ml @ 0 mls/hr UD IV 02/15/25 19:45 UNV Ondansetron HCl 4 mg Q4HP PRN IV 02/15/25 19:45 Insulin Glargine 15 units DAILY SC 02/16/25 10:00 Cancel Fluconazole 100 ml @ 100 mls/hr DAILY IV 02/16/25 10:15 02/18/25 09:51 100 MLS/HR Diagnostic Test (Pha) 1 strip IQ4HR 02/16/25 12:00 02/18/25 12:22 1 STRIP Insulin Human Regular IQ4HR SC 02/16/25 12:00 02/18/25 12:25 4 UNITS Dextrose 50 ml UD PRN IV 02/16/25 10:15 02/16/25 12:30 50 ML Purified Water 200 ml Q6HR GT 02/16/25 12:00 02/18/25 12:30 200 ML Enteral Nutritional Formula 1,000 ml 30ML/HR GT 02/16/25 15:15 Enoxaparin Sodium 40 mg DAILY SC 02/17/25 10:00 02/18/25 09:51 40 MG Sodium Chloride 1,000 ml @ 75 mls/hr [id number] IV 02/18/25 00:00 02/18/25 13:51 75 MLS/HR laboratory and microbiology Laboratory Tests 02/18/25 13:20 02/18/25 05:03 Test 02/18/25 05:03 Range/Units Serum Glucose 82 74-106 mg/dL Assessment/Plan Impression Altered mental status Acute hypoxemic respiratory failure Acute kidney injury DKA severe metabolic acidosis Patient is seen and examined in the emergency room events on mechanical ventilation s/p intubation vent peep 5 Fi02 =30% off sedation, not waking up appears lethargic labs and imaging reviewed ABG reviewed Management plan vent support IV fluids/insulin per protocol sedation holiday and precedex start weaning off the vent if following commands continue supportive care Empiric antibiotics Deescalate based on cultures Monitor renal function Critical care time 35 minutes Dietary Evaluation Review Comments: Nutrition Recommendation: 1) TF Glucerna 1.2 Lan @ 45ml/hr x 24 hr (goal). Start @ 20ml/hr, increase 10ml/hr Q4H until goal rate is reached. TF at goal volume provides 100% energy & protein needs - 1296 kcal, 65 gm protein, 869 ml free water 2) Water flush 100ml Q6H if allowed 3) TPN if NPO>7 days 4) Vit C 200mg daily, zinc sulfate 220mg BID x 10 days, Chas 1 pk BID, MVI w/ minerals 1 tab daily 5) Monitor I/O, weight trend, lab values and skin integrity Expected Outcomes/Goals: To meet >75% estimated needs partial thickness wound to improve Fu 2-3 days Plan discussed with: Other (Rn) MARIBEL MERCER MD February 18, 2025 14:38
[2025-02-19] VITALS (112 sets, daily range): BP systolic 52–147; BP diastolic 27–94; PULSE 54–93; RESP 12–34; TEMP 96.6–98.4; O2SAT 99–100
[2025-02-19] MEDS: NOREPINEPHRINE 8 MG/250ML KIT 250 ML IV SCH (03:08)
[2025-02-19 05:59] LABS: Alanine Aminotransferase 12 U/L (7-40); Alkaline Phosphatase 84 U/L (46-116); Anion Gap 14 (5-15); Aspartate Aminotransferase 21 U/L (13-40); BUN/Creatinine Ratio 16.4 (10.0-20.0); Blood Urea Nitrogen 10 mg/dL (9-23); Potassium 3.6 mmol/L (3.5-5.1); Sodium 144 mmol/L (136-145)
[2025-02-19 06:00] LABS: Bilirubin, Total 0.9 mg/dL (0.2-1.0)
--- NOTE | 2025-02-19 06:01 | DVH ---
CHEST RADIOGRAPH Indication: ON VENTILATOR Technique: Single frontal view of the chest was obtained Comparison: XY CHEST PORTABLE on DOS: 02/18/25, XY CHEST PORTABLE on DOS: 02/17/25, XY CHEST PORTABLE o n DOS: 02/15/25 IMPRESSION: Heart appears stable in size. Support lines and tubes appear unchanged in satisfactory position. Bhavna ngs appear clear without focal airspace opacity, effusion, or pneumothorax.
[2025-02-19 06:05] LABS: Albumin 2.8 g/dL (3.2-4.8); Calcium 8.5 mg/dL (8.7-10.4); Carbon Dioxide 19 mmol/L (20-31); Chloride 111 mmol/L (98-107); Glucose 230 mg/dL (74-106); Total Protein 4.6 g/dL (5.7-8.2)
--- NOTE | 2025-02-19 09:51 | DVHPN2 ---
Progress Note - Dictate Date Seen: February 19, 2025 Has the PT tested + for MRSA If YES, has PT been informed?: No Medical Necessity Reason Pt with a Central, PICC or Fol: No vital signs Vital Sign Date Time Temp Pulse Resp B/P (MAP) Pulse Ox O2 Delivery O2 Flow Rate FiO2 02/19/25 09:30 64 24 126/75 (92) 100 02/19/25 09:00 30 02/19/25 08:00 98.4 98.4 02/19/25 07:30 Mechanical Ventilator+ Total Intake and Output 02/18/25 02/18/25 02/19/25 15:00 23:00 07:00 Intake Total 900 ml 1011.88 ml 855.335 ml Output Total 1300 ml 950 ml Balance 900 ml -288.12 ml -94.665 ml medications Current Medications Medications Dose Ordered Sig/Lex Route Start Time Stop Time Status Last Admin Dose Admin Midazolam HCl 50 ml @ 1 mls/hr Q24H IV 02/15/25 17:30 02/17/25 08:07 6 MLS/HR Vancomycin HCl 0 ml @ 0 mls/hr UD IV 02/15/25 19:45 UNV Ondansetron HCl 4 mg Q4HP PRN IV 02/15/25 19:45 Insulin Glargine 15 units DAILY SC 02/16/25 10:00 Cancel Fluconazole 100 ml @ 100 mls/hr DAILY IV 02/16/25 10:15 02/19/25 08:10 100 MLS/HR Diagnostic Test (Pha) 1 strip IQ4HR 02/16/25 12:00 02/19/25 08:10 1 STRIP Insulin Human Regular IQ4HR SC 02/16/25 12:00 02/19/25 04:19 3 UNITS Dextrose 50 ml UD PRN IV 02/16/25 10:15 02/16/25 12:30 50 ML Purified Water 200 ml Q6HR GT 02/16/25 12:00 02/18/25 23:57 200 ML Enteral Nutritional Formula 1,000 ml 30ML/HR GT 02/16/25 15:15 Enoxaparin Sodium 40 mg DAILY SC 02/17/25 10:00 02/18/25 09:51 40 MG Sodium Chloride 1,000 ml @ 75 mls/hr [id number] IV 02/18/25 00:00 02/19/25 01:07 75 MLS/HR Norepinephrine Bitartrate 250 ml @ 1.875 mls/ hr Q24H IV 02/19/25 03:15 02/19/25 03:08 1.875 MLS/HR laboratory and microbiology Laboratory Tests 02/19/25 04:23 02/18/25 05:03 Test 02/19/25 04:23 Range/Units Serum Glucose 230 H 74-106 mg/dL Assessment/Plan Impression Altered mental status Acute hypoxemic respiratory failure Acute kidney injury DKA severe metabolic acidosis Patient is seen and examined in the ICU events on mechanical ventilation s/p intubation vent peep 5 Fi02 =30% off sedation labs and imaging reviewed ABG reviewed Management plan vent support sedation holiday and precedex weaning off the vent if following commands PS 7/5 extubate when ready continue supportive care Empiric antibiotics Deescalate based on cultures Monitor renal function replace lytes dvt proph Critical care time 35 minutes Dietary Evaluation Review Comments: Nutrition Recommendation: 1) TF Glucerna 1.2 Lan @ 45ml/hr x 24 hr (goal). Start @ 20ml/hr, increase 10ml/hr Q4H until goal rate is reached. TF at goal volume provides 100% energy & protein needs - 1296 kcal, 65 gm protein, 869 ml free water 2) Water flush 100ml Q6H if allowed 3) TPN if NPO>7 days 4) Vit C 200mg daily, zinc sulfate 220mg BID x 10 days, Chas 1 pk BID, MVI w/ minerals 1 tab daily 5) Monitor I/O, weight trend, lab values and skin integrity Expected Outcomes/Goals: To meet >75% estimated needs partial thickness wound to improve Fu 2-3 days Plan discussed with: Other (rn) MARIBEL MERCER MD February 19, 2025 09:51
--- NOTE | 2025-02-19 12:54 | DVHPN2 ---
Subjective Patient not fully awake it. Reviewed: Care Plan, H&P, Labs, Medications Changes from previous H/P or p: No Changes General: Per HPI Objective Vitals Vital Signs Date Time Temp Pulse Resp B/P (MAP) Pulse Ox O2 Delivery O2 Flow Rate FiO2 02/19/25 12:19 14 100 Mechanical Ventilator+ 30 30 02/19/25 11:16 61 97/59 (72) 02/19/25 08:00 98.4 98.4 Intake/Output Intake and Output 02/19/25 07:00 Intake Total 2767.215 ml Output Total 2250 ml Balance 517.215 ml Intake Oral 200 ml IV Total 2167.215 ml Other 400 ml Output Urine Total 2250 ml # Bowel Movements 6 General Appearance: mild distress, Other (Intubated sedated) HEENT: Atraumatic, PERRLA Lungs: Clear to auscultation, Normal air movement, Other (Mechanical ventilation) Cardiovascular: Normal S1, Normal S2, Other (Sinus tachycardia) Genitourinary: No Apparent Abnormalities (Mike catheter) Neuro: Other (Unable to assess) Skin: Dry, Intact Medications Current Medications Medications Dose Ordered Sig/Lex Route Start Time Stop Time Status Last Admin Dose Admin Midazolam HCl 50 ml @ 1 mls/hr Q24H IV 02/15/25 17:30 02/17/25 08:07 6 MLS/HR Vancomycin HCl 0 ml @ 0 mls/hr UD IV 02/15/25 19:45 UNV Ondansetron HCl 4 mg Q4HP PRN IV 02/15/25 19:45 Insulin Glargine 15 units DAILY SC 02/16/25 10:00 Cancel Fluconazole 100 ml @ 100 mls/hr DAILY IV 02/16/25 10:15 02/19/25 08:10 100 MLS/HR Diagnostic Test (Pha) 1 strip IQ4HR 02/16/25 12:00 02/19/25 11:23 1 STRIP Insulin Human Regular IQ4HR SC 02/16/25 12:00 02/19/25 04:19 3 UNITS Dextrose 50 ml UD PRN IV 02/16/25 10:15 02/16/25 12:30 50 ML Purified Water 200 ml Q6HR GT 02/16/25 12:00 02/19/25 12:16 200 ML Enteral Nutritional Formula 1,000 ml 30ML/HR GT 02/16/25 15:15 Enoxaparin Sodium 40 mg DAILY SC 02/17/25 10:00 02/19/25 10:15 40 MG Sodium Chloride 1,000 ml @ 75 mls/hr [id number] IV 02/18/25 00:00 02/19/25 01:07 75 MLS/HR Norepinephrine Bitartrate 250 ml @ 1.875 mls/ hr Q24H IV 02/19/25 03:15 02/19/25 03:08 1.875 MLS/HR Laboratory Results Laboratory Tests 02/18/25 05:03 02/19/25 04:23 Chemistry Test 02/18/25 13:20 02/19/25 04:23 Magnesium Level 1.6 mg/dL (1.6-2.6) Phosphorus Level 2.0 mg/dL (2.4-5.1) L Albumin 2.8 g/dL (3.2-4.8) L Calcium Level 8.5 mg/dL (8.7-10.4) L Total Protein 4.6 g/dL (5.7-8.2) L LFT Test 02/19/25 04:23 Alanine Aminotransferase (ALT) 12 U/L (7-40) Alkaline Phosphatase 84 U/L (46-116) Aspartate Amino Transferase (AST) 21 U/L (13-40) Total Bilirubin 0.9 mg/dL (0.2-1.0) Urinalysis Test 02/15/25 20:28 Urine Color Light-yellow (Yellow) Urine Clarity Clear (Clear) Urine pH 5.5 (5.0-9.0) Urine Specific [place] 1.020 (1.001-1.035) Urine Protein 1+ (Negative) H Urine Ketones 3+ (Negative) H Urine Blood 1+ /uL (Negative) H Urine Nitrite Negative (Negative) Urine Bilirubin Negative (Negative) Urine Urobilinogen Normal mg/dL (Negative) Urine Leukocyte Esterase Negative /uL (Negative) Urine RBC 8 /hpf (0 - 4) Urine Microscopic WBC 1 /HPF (0-5) Urine Squamous Epithelial Cells Few /hpf (<5) Urine Bacteria Few /hpf (None Seen) H Urine Mucus Few (None Seen) Urine Yeast (Budding) Many /hpf (None Seen) Urine Glucose 4+ mg/dL (Normal) H Microbiology Microbiology Date/Time Source Procedure Growth Status 02/18/25 03:30 Nose MRSA Screen - Final Complete 02/15/25 20:28 Urine - [place] Urine Culture - Final Complete 02/15/25 18:01 Blood Blood Culture - Preliminary NO GROWTH AFTER 72 HOURS OF INCUBATION. Resulted Labs and/or images reviewed: Labs reviewed by me, Image(s) reviewed by me Assessment/Plan Assessment/Plan Impression: -acute respiratory failure with mechanical ventilation -complicated cystitis with yeast -hypernatremia -metabolic encephalopathy -diabetes mellitus -diabetic ketoacidosis -leukocytosis, rule out sepsis -acute kidney injury, vasomotor nephropathy -septic shock -hypoglycemia Hypokalemia Plan: Events: Patient is tolerating CPAP at this moment. Neurologically not following commands. Sitter CT scan of the head if patient mentation does not improve. -continue current ventilator settings -continue current antimicrobial -stop long-acting insulin, regular insulin sliding scale -electrolyte replacement as needed. -repeat labs, chest x-ray, ABG in a.m. Critical care time spent with patient discussing and formulating plan of care: 40 minutes. This does not include time spent performing procedures. This medical document was created using an electronic medical record system with [employer] dictation system. Although this document has been carefully reviewed, there may still be some phonetic and typographical errors. These areas are purely typographical due to imperfections of the software programs, and do not reflect any compromise in the patient's medical care. Plan discussed with: Patient, Other (RN) Date of Service: February 19, 2025 Billing Provider: KO GARCIA NP Common Visit Codes: [id number] CARE 30-74 MIN KO GARCIA NP February 19, 2025 12:54
[2025-02-20] VITALS (100 sets, daily range): BP systolic 84–168; BP diastolic 46–83; PULSE 55–145; RESP 11–41; TEMP 94.8–99.7; O2SAT 99–100
--- NOTE | 2025-02-20 04:36 | DVH ---
CHEST RADIOGRAPH Indication: routine cxr for intubated patients Technique: Single frontal view of the chest was obtained Comparison: XY CHEST XRAY 1 VIEW on DOS: 02/19/25, XY CHEST PORTABLE on DOS: 02/18/25, XY CHEST PORTABL E on DOS: 02/17/25 IMPRESSION: Right IJ catheter tip at the cavoatrial junction right atrium, consider retraction by 1-2 cm for idea l positioning. Heart appears normal in stable in size. Support lines and tubes appear unchanged in position. Lungs appear clear without focal airspace opacity, effusion, or pneumothorax.
[2025-02-20 05:33] LABS: Basophils # (auto) 0.1 10 ^3/uL (0-0.2); Basophils % (auto) 0.9 % (0.0-2.0); Eosinophils # (auto) 0.1 10 ^3/uL (0-0.8); Eosinophils % (auto) 1.5 % (0.0-7.0); Hemoglobin 11.2 g/dL (12.2-16.2); Lymphocytes # (auto) 1.2 10 ^3/uL (0.4-5.4); Lymphocytes % (auto) 21.4 % (10.0-50.0); Mean Corpuscular Hemoglobin 27.6 pg (28.0-32.0); Mean Corpuscular Hgb Conc. 32.8 g/dL (32.0-36.0); Mean Corpuscular Volume 84.1 fL (80.0-100.0); Monocytes # (auto) 0.7 10 ^3/uL (0-1.3); Monocytes % (auto) 11.7 % (0.0-12.0); Neutrophils # (auto) 3.6 10 ^3/uL (1.6-8.6); Neutrophils % (auto) 64.5 % (37.0-80.0); Nucleated Red Blood Cells % 0.1 %; Platelet Count (auto) 231 10^3/uL (140-450); Red Blood Cells 4.05 10^6/uL (4.0-5.20); Red Cell Distribution Width 14.1 % (11.8-14.3); White Blood Cell 5.6 10^3/uL (4.4-10.8)
[2025-02-20 05:48] LABS: Anion Gap 15 (5-15); Sodium 142 mmol/L (136-145)
[2025-02-20 05:49] LABS: Calcium 8.7 mg/dL (8.7-10.4)
[2025-02-20 05:54] LABS: BUN/Creatinine Ratio 17.2 (10.0-20.0); Blood Urea Nitrogen 11 mg/dL (9-23)
[2025-02-20 05:55] LABS: Carbon Dioxide 17 mmol/L (20-31); Chloride 110 mmol/L (98-107); Glucose 234 mg/dL (74-106); Potassium 3.4 mmol/L (3.5-5.1)
[2025-02-20 06:36] LABS: Base Excess -8.2 mmol/L (-2.0-3.0)
[2025-02-20] MEDS: POTASSIUM CHL 20MEQ/100ML 100 ML IV SCH (06:55)
[2025-02-20] MEDS: D5W/ SOD CHL 0.9%/KCL 20MEQ 1,000 ML IV SCH (11:14)
--- NOTE | 2025-02-20 13:10 | DVHPN2 ---
Subjective Patient more awake and following commands. Reviewed: Care Plan, H&P, Labs, Medications Changes from previous H/P or p: No Changes General: Per HPI Objective Vitals Vital Signs Date Time Temp Pulse Resp B/P (MAP) Pulse Ox O2 Delivery O2 Flow Rate FiO2 02/20/25 12:00 18 100 Mechanical Ventilator+ 30 30 02/20/25 11:31 70 113/55 (74) 02/20/25 11:15 98.6 209.5 Intake/Output Intake and Output 02/20/25 07:00 Intake Total 2999.355 ml Output Total 1200 ml Balance 1799.355 ml IV Total 1999.355 ml Tube Feeding 400 ml Other 600 ml Output Urine Total 1200 ml General Appearance: mild distress, Other (Intubated sedated) HEENT: Atraumatic, PERRLA Lungs: Clear to auscultation, Normal air movement, Other (Mechanical ventilation) Cardiovascular: Normal S1, Normal S2, Other (Sinus tachycardia) Genitourinary: No Apparent Abnormalities (Mike catheter) Neuro: Other (Unable to assess) Skin: Dry, Intact Medications Current Medications Medications Dose Ordered Sig/Lex Route Start Time Stop Time Status Last Admin Dose Admin Midazolam HCl 50 ml @ 1 mls/hr Q24H IV 02/15/25 17:30 02/17/25 08:07 6 MLS/HR Vancomycin HCl 0 ml @ 0 mls/hr UD IV 02/15/25 19:45 UNV Ondansetron HCl 4 mg Q4HP PRN IV 02/15/25 19:45 Insulin Glargine 15 units DAILY SC 02/16/25 10:00 Cancel Fluconazole 100 ml @ 100 mls/hr DAILY IV 02/16/25 10:15 02/20/25 09:11 100 MLS/HR Diagnostic Test (Pha) 1 strip IQ4HR 02/16/25 12:00 02/20/25 11:32 1 STRIP Insulin Human Regular IQ4HR SC 02/16/25 12:00 02/20/25 07:49 6 UNITS Dextrose 50 ml UD PRN IV 02/16/25 10:15 02/19/25 23:54 50 ML Purified Water 200 ml Q6HR GT 02/16/25 12:00 02/20/25 12:51 200 ML Enteral Nutritional Formula 1,000 ml 30ML/HR GT 02/16/25 15:15 Enoxaparin Sodium 40 mg DAILY SC 02/17/25 10:00 02/20/25 09:15 40 MG Norepinephrine Bitartrate 250 ml @ 1.875 mls/ hr Q24H IV 02/19/25 03:15 02/19/25 03:08 1.875 MLS/HR Potassium Chloride/Dextrose/ Sod Cl 1,000 ml @ 75 mls/hr [id number] IV 02/20/25 08:30 02/20/25 11:14 75 MLS/HR Laboratory Results Laboratory Tests 02/20/25 04:28 Chemistry Test 02/20/25 04:28 Calcium Level 8.7 mg/dL (8.7-10.4) Urinalysis Test 02/15/25 20:28 Urine Color Light-yellow (Yellow) Urine Clarity Clear (Clear) Urine pH 5.5 (5.0-9.0) Urine Specific [place] 1.020 (1.001-1.035) Urine Protein 1+ (Negative) H Urine Ketones 3+ (Negative) H Urine Blood 1+ /uL (Negative) H Urine Nitrite Negative (Negative) Urine Bilirubin Negative (Negative) Urine Urobilinogen Normal mg/dL (Negative) Urine Leukocyte Esterase Negative /uL (Negative) Urine RBC 8 /hpf (0 - 4) Urine Microscopic WBC 1 /HPF (0-5) Urine Squamous Epithelial Cells Few /hpf (<5) Urine Bacteria Few /hpf (None Seen) H Urine Mucus Few (None Seen) Urine Yeast (Budding) Many /hpf (None Seen) Urine Glucose 4+ mg/dL (Normal) H Blood Gas Results Test 02/20/25 06:27 Arterial Blood pH 7.398 (7.350-7.450) FiO2 % 30.0 Microbiology Microbiology Date/Time Source Procedure Growth Status 02/18/25 03:30 Nose MRSA Screen - Final Complete 02/15/25 20:28 Urine - [place] Urine Culture - Final Complete 02/15/25 18:01 Blood Blood Culture - Preliminary NO GROWTH AFTER 72 HOURS OF INCUBATION. Resulted Labs and/or images reviewed: Labs reviewed by me, Image(s) reviewed by me Assessment/Plan Assessment/Plan Impression: -acute respiratory failure with mechanical ventilation -complicated cystitis with yeast -hypernatremia -metabolic encephalopathy -diabetes mellitus -diabetic ketoacidosis -leukocytosis, rule out sepsis -acute kidney injury, vasomotor nephropathy -septic shock -hypoglycemia Hypokalemia Plan: Events: Patient more awake and following commands. Patient currently on spontaneous breathing trial. Plans for extubation today. -continue current ventilator settings -continue current antimicrobial -continue regular insulin sliding scale. -start IV infusion with dextrose giving hypoglycemia. -electrolyte replacement as needed. -repeat labs, chest x-ray, ABG in a.m. Critical care time spent with patient discussing and formulating plan of care: 40 minutes. This does not include time spent performing procedures. This medical document was created using an electronic medical record system with [employer] dictation system. Although this document has been carefully reviewed, there may still be some phonetic and typographical errors. These areas are purely typographical due to imperfections of the software programs, and do not reflect any compromise in the patient's medical care. Plan discussed with: Patient, Other (RN) My Orders Orders - KO GARCIA NP Procedure Category Date Status Time D5w/ Sod Chl 0.9%/Kcl PHA 02/20/25 In Process 20meq 08:30 Date of Service: Feb 20, 2025 Billing Provider: KO GARCIA NP Common Visit Codes: [id number] CARE 30-74 MIN KO GARCIA NP Feb 20, 2025 13:10
[2025-02-20 13:38] LABS: Base Excess -12.5 mmol/L (-2.0-3.0)
--- NOTE | 2025-02-20 14:25 | DVHPN2 ---
Progress Note - Dictate Date Seen: Feb 20, 2025 Has the PT tested + for MRSA If YES, has PT been informed?: No Medical Necessity Reason Pt with a Central, PICC or Fol: No vital signs Vital Sign Date Time Temp Pulse Resp B/P (MAP) Pulse Ox O2 Delivery O2 Flow Rate FiO2 02/20/25 14:04 20 100 Cool Aerosol 7 25 25 02/20/25 14:00 95 114/51 (72) 02/20/25 13:45 99.3 210.7 Total Intake and Output 02/19/25 02/19/25 02/20/25 15:00 23:00 07:00 Intake Total 737.310 ml 1267.845 ml 994.200 ml Output Total 650 ml 550 ml Balance 737.310 ml 617.845 ml 444.200 ml medications Current Medications Medications Dose Ordered Sig/Lex Route Start Time Stop Time Status Last Admin Dose Admin Midazolam HCl 50 ml @ 1 mls/hr Q24H IV 02/15/25 17:30 02/17/25 08:07 6 MLS/HR Vancomycin HCl 0 ml @ 0 mls/hr UD IV 02/15/25 19:45 UNV Ondansetron HCl 4 mg Q4HP PRN IV 02/15/25 19:45 Insulin Glargine 15 units DAILY SC 02/16/25 10:00 Cancel Fluconazole 100 ml @ 100 mls/hr DAILY IV 02/16/25 10:15 02/20/25 09:11 100 MLS/HR Diagnostic Test (Pha) 1 strip IQ4HR 02/16/25 12:00 02/20/25 11:32 1 STRIP Insulin Human Regular IQ4HR SC 02/16/25 12:00 02/20/25 07:49 6 UNITS Dextrose 50 ml UD PRN IV 02/16/25 10:15 02/19/25 23:54 50 ML Purified Water 200 ml Q6HR GT 02/16/25 12:00 02/20/25 12:51 200 ML Enteral Nutritional Formula 1,000 ml 30ML/HR GT 02/16/25 15:15 Enoxaparin Sodium 40 mg DAILY SC 02/17/25 10:00 02/20/25 09:15 40 MG Norepinephrine Bitartrate 250 ml @ 1.875 mls/ hr Q24H IV 02/19/25 03:15 02/19/25 03:08 1.875 MLS/HR Potassium Chloride/Dextrose/ Sod Cl 1,000 ml @ 75 mls/hr [id number] IV 02/20/25 08:30 02/20/25 11:14 75 MLS/HR Nystatin 5 ml QID MT 02/20/25 18:00 UNV laboratory and microbiology Laboratory Tests 02/20/25 04:28 Test 02/20/25 04:28 Range/Units Serum Glucose 234 H 74-106 mg/dL Assessment/Plan Impression Altered mental status Acute hypoxemic respiratory failure Acute kidney injury DKA severe metabolic acidosis Patient is seen and examined in the ICU events /p extubation this morning following commands ABG reviewed Management plan 02 as needed inc spirometry continue supportive care Empiric antibiotics Deescalate based on cultures Monitor renal function replace lytes dvt proph Critical care time 35 minutes Dietary Evaluation Review Comments: Nutrition Recommendation: 1) TF Glucerna 1.2 Lan @ 45ml/hr x 24 hr (goal). Start @ 20ml/hr, increase 10ml/hr Q4H until goal rate is reached. TF at goal volume provides 100% energy & protein needs - 1296 kcal, 65 gm protein, 869 ml free water 2) Water flush 100ml Q6H if allowed 3) TPN if NPO>7 days 4) Vit C 200mg daily, zinc sulfate 220mg BID x 10 days, Chas 1 pk BID, MVI w/ minerals 1 tab daily 5) Monitor I/O, weight trend, lab values and skin integrity Expected Outcomes/Goals: To meet >75% estimated needs partial thickness wound to improve Fu 2-3 days Plan discussed with: Other (rn) MARIBEL MERCER MD Feb 20, 2025 14:25
[2025-02-20] MEDS ORDERED: DEXTROSE (50%) 50ML SYRG IV PRN (15:00)
[2025-02-20] MEDS: LORazepam 2MG/ML-1ML VIAL IV PRN ×2 (17:47→19:03)
[2025-02-20] MEDS: ACCU-CHEK COMFORT CURVE STRIP VI SCH (17:53)
[2025-02-20] MEDS: InsuLIN REG 1unit/0.01ml Soln (100units/ml) SC SCH (17:56)
[2025-02-20] MEDS: NYSTATIN (MOUTH-THROAT) 500,000 UNITS/5 ML SUSP MT SCH (18:15)
[2025-02-20] MEDS: ALBUTEROL SULF 2.5 MG/0.5ML(0.5%) NEB SOLN ONE (18:55)
[2025-02-20] MEDS: IPRATROPIUM BROM 0.5 MG/2.5ML INH SOL ONE (18:55)
[2025-02-20] MEDS: ALBUTEROL SULF 2.5 MG/0.5ML(0.5%) NEB SOLN NEB ONE (19:03)
[2025-02-20] MEDS: IPRATROPIUM BROM 0.5 MG/2.5ML INH SOL NEB ONE (19:03)
[2025-02-21] VITALS (72 sets, daily range): BP systolic 106–158; BP diastolic 53–76; PULSE 76–144; RESP 12–41; TEMP 98–100.4; O2SAT 95–100
[2025-02-21 06:04] LABS: Alanine Aminotransferase 14 U/L (7-40); Albumin 3.3 g/dL (3.2-4.8); Alkaline Phosphatase 110 U/L (46-116); Anion Gap 21.00001 (5-15); Aspartate Aminotransferase 17 U/L (13-40); BUN/Creatinine Ratio 8.3 (10.0-20.0); Bilirubin, Total 0.4 mg/dL (0.2-1.0); Sodium 144 mmol/L (136-145)
[2025-02-21 06:12] LABS: Blood Urea Nitrogen 8 mg/dL (9-23); Chloride 113 mmol/L (98-107); Glucose 316 mg/dL (74-106); Total Protein 5.4 g/dL (5.7-8.2)
[2025-02-21 06:13] LABS: Carbon Dioxide < 10 mmol/L (20-31); Hematocrit 36.8 % (36.0-46.0); Hemoglobin 12.1 g/dL (12.2-16.2); Mean Corpuscular Hemoglobin 28.1 pg (28.0-32.0); Mean Corpuscular Hgb Conc. 32.9 g/dL (32.0-36.0); Mean Corpuscular Volume 85.3 fL (80.0-100.0); Platelet Count (auto) 315 10^3/uL (140-450); Red Blood Cells 4.31 10^6/uL (4.0-5.20); Red Cell Distribution Width 14.8 % (11.8-14.3); White Blood Cell 10.2 10^3/uL (4.4-10.8)
[2025-02-21 06:15] LABS: Basophils % (manual) 0 (0.0-2.0); Blast Cells 0; Eosinophils % (manual) 0 (0-7); Metamyelocytes % 0; Myelocytes % 0; Promyelocytes % 0; Reactive Lymphocytes 0
[2025-02-21 06:54] LABS: Band Neutrophils % (manual) 3; Lymphocytes % (manual) 22 (10.0-50.0); Monocytes % (manual) 9 (0-12); Platelet Estimate Adequate
[2025-02-21] MEDS: SODIUM BICARB 8.4% 50Meq/50ml SYR Vial IV ONE (08:13)
[2025-02-21] MEDS ORDERED: DEXTROSE (50%) 50ML SYRG IV PRN (08:30)
[2025-02-21] MEDS: METOPROLOL TARTRATE 1MG/1ML-5ML VIAL IV ONE (08:55)
[2025-02-21] MEDS: INSULIN DRIP 100 UNIT/100ML 100 ML IV SCH (08:56)
[2025-02-21 09:24] LABS: Erythrocyte Sedimentation Rate 41 mm/hr (0-20)
[2025-02-21] MEDS: SODIUM BICARB 50mEq/50ml Vial 50 ML in SOD CHL 0.45% 1,000 ML IV SCH (09:54)
[2025-02-21] MEDS: ACCU-CHEK COMFORT CURVE STRIP VI SCH (09:55)
[2025-02-21 11:01] LABS: Urine Bacteria None Seen /hpf (None Seen)
[2025-02-21 11:12] LABS: Urine Blood Negative /uL (Negative); Urine Clarity Clear (Clear); Urine Color Light-Yellow (Yellow); Urine Mucus FEW (None Seen); Urine Protein, UAD TRACE (Negative); Urine Specific Gravity 1.024 (1.001-1.035); Urine Squamous Epithelial Cell FEW /hpf (<5); Urine Urobilinogen 2 mg/dL (Negative); Urine WBC < 1 /HPF (0-5); Urine pH 5.5 (5.0-9.0)
--- NOTE | 2025-02-21 11:43 | DVHPN2 ---
Subjective Patient more awake and following commands. Reviewed: Care Plan, H&P, Labs, Medications Changes from previous H/P or p: No Changes General: Per HPI Objective Vitals Vital Signs Date Time Temp Pulse Resp B/P (MAP) Pulse Ox O2 Delivery O2 Flow Rate FiO2 02/21/25 11:00 116 25 126/65 (85) 99 02/21/25 10:00 Nasal Cannula* 1 24 02/21/25 08:00 98.2 98.2 Intake/Output Intake and Output 02/21/25 07:00 Intake Total 2155.110 ml Output Total 2300 ml Balance -144.890 ml Intake Oral 100 ml IV Total 1655.110 ml Tube Feeding 400 ml Output Urine Total 2300 ml # Bowel Movements 9 General Appearance: Alert, Cooperative, mild distress, Other (Intubated sedated) HEENT: Atraumatic, PERRLA Lungs: Clear to auscultation, Normal air movement, Other (Mechanical ventilation) Cardiovascular: Normal S1, Normal S2, Other (Tachycardic) Genitourinary: No Apparent Abnormalities (Mike catheter) Neuro: Other (Unable to assess) Skin: Dry, Intact Medications Current Medications Medications Dose Ordered Sig/Lex Route Start Time Stop Time Status Last Admin Dose Admin Vancomycin HCl 0 ml @ 0 mls/hr UD IV 02/15/25 19:45 UNV Ondansetron HCl 4 mg Q4HP PRN IV 02/15/25 19:45 Insulin Glargine 15 units DAILY SC 02/16/25 10:00 Cancel Fluconazole 100 ml @ 100 mls/hr DAILY IV 02/16/25 10:15 02/21/25 08:13 100 MLS/HR Purified Water 200 ml Q6HR GT 02/16/25 12:00 02/21/25 00:00 200 ML Enoxaparin Sodium 40 mg DAILY SC 02/17/25 10:00 02/21/25 08:13 40 MG Norepinephrine Bitartrate 250 ml @ 1.875 mls/ hr Q24H IV 02/19/25 03:15 02/19/25 03:08 1.875 MLS/HR Nystatin 5 ml QID MT 02/20/25 18:00 02/21/25 05:33 5 ML Insulin Human (Reg)/Sodium Chloride 100 ml @ 0.5 mls/hr Q24H IV 02/21/25 08:30 02/21/25 08:56 0.5 MLS/HR Diagnostic Test (Pha) 1 strip Q90MIN 02/21/25 09:00 02/21/25 11:10 1 STRIP Dextrose 50 ml PRN PRN IV 02/21/25 08:30 Sodium Bicarbonate 50 ml/ Sodium Chloride 1,050 ml @ 100 mls/hr [id number] IV 02/21/25 08:30 02/21/25 09:54 100 MLS/HR Metoprolol Tartrate 25 mg BID PO 02/21/25 10:00 Laboratory Results Laboratory Tests 02/21/25 04:55 Chemistry Test 02/21/25 04:55 Albumin 3.3 g/dL (3.2-4.8) Calcium Level 9.0 mg/dL (8.7-10.4) Total Protein 5.4 g/dL (5.7-8.2) L LFT Test 02/21/25 04:55 Alanine Aminotransferase (ALT) 14 U/L (7-40) Alkaline Phosphatase 110 U/L (46-116) Aspartate Amino Transferase (AST) 17 U/L (13-40) Total Bilirubin 0.4 mg/dL (0.2-1.0) HgA1c, TSH Test 02/21/25 01:45 Thyroid Stimulating Hormone (TSH) 0.31 uIU/mL (0.55-4.78) L Urinalysis Test 02/15/25 20:28 02/21/25 11:00 Urine Yeast (Budding) Many /hpf (None Seen) Urine Color Light-yellow (Yellow) Urine Clarity Clear (Clear) Urine pH 5.5 (5.0-9.0) Urine Specific [place] 1.024 (1.001-1.035) Urine Protein Trace (Negative) H Urine Ketones 4+ (Negative) H Urine Blood Negative /uL (Negative) Urine Nitrite Negative (Negative) Urine Bilirubin Negative (Negative) Urine Urobilinogen 2 mg/dL (Negative) H Urine Leukocyte Esterase Negative /uL (Negative) Urine RBC 1 /hpf (0 - 4) Urine Microscopic WBC < 1 /HPF (0-5) Urine Squamous Epithelial Cells Few /hpf (<5) Urine Bacteria None seen /hpf (None Seen) Urine Mucus Few (None Seen) Urine Glucose 4+ mg/dL (Normal) H Blood Gas Results Test 02/20/25 13:31 02/21/25 06:45 Arterial Blood pH 7.347 (7.350-7.450) 7.186 (7.350-7.450) FiO2 % 30.0 28.0 Microbiology Microbiology Date/Time Source Procedure Growth Status 02/18/25 03:30 Nose MRSA Screen - Final Complete 02/15/25 20:28 Urine - [place] Urine Culture - Final Complete 02/15/25 18:01 Blood Blood Culture - Final NO GROWTH AFTER 5 DAYS OF INCUBATION. Complete Labs and/or images reviewed: Labs reviewed by me, Image(s) reviewed by me Assessment/Plan Assessment/Plan Impression: -acute respiratory failure with mechanical ventilation -complicated cystitis with yeast -hypernatremia -metabolic encephalopathy -diabetes mellitus -diabetic ketoacidosis -leukocytosis, rule out sepsis -acute kidney injury, vasomotor nephropathy -septic shock -hypoglycemia Hypokalemia Plan: Events: Patient extubated. Patient had worsening tachycardia, tachypnea overnight. BNP reviewed with the patient apparently, going back into gap acidosis. Restart insulin drip. Start sodium bicarbonate drip. Q.6 BMP -continue current antimicrobial -continue regular insulin sliding scale. -continue sodium bicarbonate drip -electrolyte replacement as needed. -repeat labs, chest x-ray, ABG in a.m. Critical care time spent with patient discussing and formulating plan of care: 40 minutes. This does not include time spent performing procedures. This medical document was created using an electronic medical record system with [employer] dictation system. Although this document has been carefully reviewed, there may still be some phonetic and typographical errors. These areas are purely typographical due to imperfections of the software programs, and do not reflect any compromise in the patient's medical care. Plan discussed with: Patient, Other (Rn) My Orders Orders - KO GARCIA [employer] Procedure Category Date Status Time Consistent DIET 02/20/25 Transmitted Carb(Ccho)Diabetes Lunch Abg W/ Co-Ox RT 02/20/25 Logged 13:30 Extubate DISHA 02/20/25 In Process 13:34 Oxygen Via Cool Mist RT 02/20/25 Transmitted Mask 13:34 Nystatin PHA 02/20/25 In Process (Mouth-Throat) 18:00 C-Diff: Specimen DISHA 02/20/25 In Process Collection An 17:04 Clostridium Difficile SERGE 02/20/25 In Process Toxin 16:55 Basic Metabolic Panel LAB 02/21/25 Logged 12:00 Basic Metabolic Panel LAB 02/21/25 Logged 18:00 Basic Metabolic Panel LAB 02/22/25 Verified 06:00 Basic Metabolic Panel LAB 02/22/25 Verified 12:00 Basic Metabolic Panel LAB 02/22/25 Verified 18:00 Basic Metabolic Panel LAB 02/23/25 Verified 06:00 Insulin Drip 100 PHA 02/21/25 In Process Unit/100ml (Myxredlin 08:30 Glucose Blood PHA 02/21/25 In Process (Accu-Chek Comfort 09:00 D/C All Diabetic DISHA 02/21/25 In Process Medications 08:27 Insulin Drip Protocol DISHA 02/21/25 In Process 08:27 Dextrose 50% Syringe PHA 02/21/25 In Process 08:30 Cvp Monitoring ED NURSING 02/21/25 Transmitted Sod Chl 0.45% PHA 02/21/25 In Process (Sodi... W/Sodium 08:30 Cortisol Am LAB 02/21/25 Logged 08:35 Metoprolol Tartrate PHA 02/21/25 In Process Tablet (Lopressor Ta 10:00 Osmolality, Serum LAB 02/21/25 Logged 08:48 Date of Service: Feb 21, 2025 Billing Provider: KO GARCIA NP Common Visit Codes: [id number] CARE 30-74 MIN KO GARCIA NP Feb 21, 2025 11:43
[2025-02-21 12:55] LABS: Anion Gap 14 (5-15)
[2025-02-21 13:00] LABS: BUN/Creatinine Ratio 10.3 (10.0-20.0)
[2025-02-21 13:02] LABS: Blood Urea Nitrogen 8 mg/dL (9-23); Calcium 8.4 mg/dL (8.7-10.4); Carbon Dioxide 20 mmol/L (20-31); Chloride 113 mmol/L (98-107); Glucose 133 mg/dL (74-106); Potassium 3.2 mmol/L (3.5-5.1); Sodium 147 mmol/L (136-145)
[2025-02-21] MEDS: METOPROLOL TARTRATE 25 MG TAB PO SCH (13:15)
--- NOTE | 2025-02-21 15:26 | MEDREC ---
[facility] ASP Intervention Section I [facility] ASP Intervention: Review courses of therapy (C.DIFF TOXIN DETECTED PLEASE CONSIDER ADDING VANCOMYCIN 125 MG PO QID ) NEMESIO GILLIS PHARMACIST Feb 21, 2025 15:26
[2025-02-21] MEDS: POTASSIUM EFFERVESENT TAB 25 MEQ PO ONE (18:22)
[2025-02-21] MEDS: VANCOMYCIN HCL 125 MG CAP PO SCH (18:22)
[2025-02-21 18:49] LABS: Anion Gap 6 (5-15); Carbon Dioxide 26 mmol/L (20-31)
[2025-02-21 18:54] LABS: BUN/Creatinine Ratio 9.6 (10.0-20.0); Glucose 96 mg/dL (74-106)
[2025-02-21 19:01] LABS: Blood Urea Nitrogen 7 mg/dL (9-23); Calcium 8.5 mg/dL (8.7-10.4); Chloride 114 mmol/L (98-107); Potassium 3.3 mmol/L (3.5-5.1); Sodium 146 mmol/L (136-145)
[2025-02-21] MEDS: ACETAMINOPHEN 325 MG TAB PO PRN (20:20)
[2025-02-21] MEDS: MAGNESIUM SULFATE 1GM/100ML 100 ML IV SCH (20:21)
--- NOTE | 2025-02-21 21:19 | DVHPN2 ---
Progress Note - Dictate Date Seen: Feb 21, 2025 Has the PT tested + for MRSA If YES, has PT been informed?: No Medical Necessity Reason Pt with a Central, PICC or Fol: Yes The following are medically ne: Fernandez Catheter Reason for fernandez catheter: Strict I&O Subjective Patient seen and examined at bedside. Breathing comfortably on room air. Overnight events reviewed. vital signs Vital Sign Date Time Temp Pulse Resp B/P (MAP) Pulse Ox O2 Delivery O2 Flow Rate FiO2 02/21/25 20:30 97 12 135/73 (93) 99 02/21/25 20:20 100.4 02/21/25 20:00 Nasal Cannula* 2 28 Total Intake and Output 02/20/25 02/20/25 02/21/25 15:00 23:00 07:00 Intake Total 524.485 ml 1005.625 ml 625 ml Output Total 1050 ml 1250 ml Balance 524.485 ml -44.375 ml -625 ml medications Current Medications Medications Dose Ordered Sig/Lex Route Start Time Stop Time Status Last Admin Dose Admin Vancomycin HCl 0 ml @ 0 mls/hr UD IV 02/15/25 19:45 UNV Ondansetron HCl 4 mg Q4HP PRN IV 02/15/25 19:45 Insulin Glargine 15 units DAILY SC 02/16/25 10:00 Cancel Fluconazole 100 ml @ 100 mls/hr DAILY IV 02/16/25 10:15 02/21/25 08:13 100 MLS/HR Enoxaparin Sodium 40 mg DAILY SC 02/17/25 10:00 02/21/25 08:13 40 MG Norepinephrine Bitartrate 250 ml @ 1.875 mls/ hr Q24H IV 02/19/25 03:15 02/19/25 03:08 1.875 MLS/HR Nystatin 5 ml QID MT 02/20/25 18:00 02/21/25 18:22 5 ML Insulin Human (Reg)/Sodium Chloride 100 ml @ 0.5 mls/hr Q24H IV 02/21/25 08:30 02/21/25 08:56 0.5 MLS/HR Diagnostic Test (Pha) 1 strip Q90MIN 02/21/25 09:00 02/21/25 19:51 1 STRIP Dextrose 50 ml PRN PRN IV 02/21/25 08:30 Sodium Bicarbonate 50 ml/ Sodium Chloride 1,050 ml @ 100 mls/hr [id number] IV 02/21/25 08:30 02/21/25 20:20 100 MLS/HR Metoprolol Tartrate 25 mg BID PO 02/21/25 10:00 02/21/25 13:15 25 MG Vancomycin HCl 125 mg QID PO 02/21/25 18:00 02/21/25 18:22 125 MG Saccharomyces Boulardii 250 mg DAILY PO 02/22/25 10:00 Acetaminophen 650 mg Q6HP PRN PO 02/21/25 19:45 02/21/25 20:20 650 MG Magnesium Sulfate/ Dextrose 100 ml @ 100 mls/hr Q1HR IV 02/21/25 20:00 02/21/25 21:59 02/21/25 20:21 100 MLS/HR objective Gen.: Patient lying in bed in no apparent distress. Breathing on room air. Head: Normocephalic, atraumatic. Eyes: EOMI/PERRLA. Ears: Normal hearing. Normal anatomy. Neck/trachea: Trachea midline, supple. Nose: Normal external anatomy. Mouth: Moist mucous membranes. Chest: Decreased air entry bilaterally. No wheezing or rhonchi. Cardiovascular: Positive S1, positive S2. Regular rate and rhythm. Abdomen: Positive bowel sounds in all 4 quadrants. Soft, non-tender, non- distended. : Deferred. Rectal: Deferred. Skin: Warm, dry. Intact. Extremities: 2+ radial pulses bilaterally. No lower extremity edema. Neuro: Awake, alert, oriented x3. No gross motor or sensory deficits. Cranial nerves II through XII intact. Gait not assessed. laboratory and microbiology Laboratory Tests 02/21/25 18:25 02/21/25 04:55 Test 02/21/25 18:25 Range/Units Serum Glucose 96 74-106 mg/dL Assessment/Plan Impression: Altered mental status Acute hypoxemic respiratory failure, resolved Mechanical ventilation, s/p extubation Complicated cystitis Metabolic encephalopathy Septic shock Hypokalemia Acute kidney injury Diabetic ketoacidosis Severe metabolic acidosis Events: Patient is seen and examined at bedside S/p extubation yesterday Currently on room air Supplemental oxygen PRN No distress On bicarb drip Continue antibiotics Continue antifungal/Nystatin On insulin drip Monitor renal function Monitor electrolytes. Supplement as necessary. Supplement potassium Check magnesium Lovenox for DVT prophylaxis Labs and imaging reviewed. Plan: S/p extubation on 02/20/25 Supplemental oxygen PRN Titrate to keep O2 sats above 92%. Incentive spirometry Continue supportive care Empiric antibiotics Deescalate based on cultures Monitor renal function Monitor electrolytes. Supplement as necessary. Monitor ins and outs. DVT prophylaxis Prognosis: Poor given patient's multiple co-morbidities. Condition: Critical Rest of plan per hospitalist and other consultants. A total of 35 minutes of critical care time was spent reviewing the patient record, examining the patient, making a diagnostic and therapeutic plan, discussing this plan with the medical personnel, following up on diagnostic studies and following the patient for clinical stability excluding any and all procedures. At least 50% of this time was spent in direct, [id number] contact. Thank you, YOLANDA Atkinson, for allowing me to participate in this patient's care. Further recommendations will depend on the patient's clinical course. Please do not hesitate to contact me if you have any questions or concerns. This medical document was created using an electronic medical record system with [employer] dictation system. Although these documentations are being carefully reviewed, there may still be some phonetic and typographical changes. The errors are purely typographical, due to imperfection on the software program, and do not reflect any compromise in the patient's medical care. Dietary Evaluation Review Comments: Nutrition Recommendation: 1) TF Glucerna 1.2 Lan @ 45ml/hr x 24 hr (goal). Start @ 20ml/hr, increase 10ml/hr Q4H until goal rate is reached. TF at goal volume provides 100% energy & protein needs - 1296 kcal, 65 gm protein, 869 ml free water 2) Water flush 100ml Q6H if allowed 3) TPN if NPO>7 days 4) Vit C 200mg daily, zinc sulfate 220mg BID x 10 days, Chas 1 pk BID, MVI w/ minerals 1 tab daily 5) Monitor I/O, weight trend, lab values and skin integrity Expected Outcomes/Goals: To meet >75% estimated needs partial thickness wound to improve Fu 2-3 days Plan discussed with: Other (RN) Critical Care Time(min): 35 INDU COWAN MD Feb 21, 2025 21:19
[2025-02-22] VITALS (39 sets, daily range): BP systolic 110–141; BP diastolic 56–78; PULSE 76–114; RESP 12–26; TEMP 97.8–99.3; O2SAT 93–100
[2025-02-22 05:06] LABS: Hematocrit 30.9 % (36.0-46.0); Hemoglobin 10.5 g/dL (12.2-16.2); Mean Corpuscular Hemoglobin 27.9 pg (28.0-32.0); Mean Corpuscular Hgb Conc. 33.9 g/dL (32.0-36.0); Mean Corpuscular Volume 82.4 fL (80.0-100.0); Platelet Count (auto) 314 10^3/uL (140-450); Red Blood Cells 3.75 10^6/uL (4.0-5.20); Red Cell Distribution Width 14.3 % (11.8-14.3)
[2025-02-22 05:12] LABS: Basophils % (manual) 0 (0.0-2.0); Blast Cells 0; Chloride 104 mmol/L (98-107); Metamyelocytes % 0; Myelocytes % 0; Promyelocytes % 0; Reactive Lymphocytes 0; Sodium 140 mmol/L (136-145)
[2025-02-22 05:13] LABS: Anion Gap 10 (5-15); Carbon Dioxide 26 mmol/L (20-31)
[2025-02-22 05:14] LABS: Calcium 8.2 mg/dL (8.7-10.4); Potassium 3.4 mmol/L (3.5-5.1)
[2025-02-22 05:18] LABS: BUN/Creatinine Ratio 10.5 (10.0-20.0)
[2025-02-22 05:26] LABS: Blood Urea Nitrogen 6 mg/dL (9-23); Glucose 140 mg/dL (74-106)
--- NOTE | 2025-02-22 05:39 | DVH ---
EXAM: XR Chest, 1 View CLINICAL INDICATION: follow up TECHNIQUE: Frontal view of the chest. COMPARISON: XY CHEST PORTABLE on DOS: 02/20/25, XY CHEST XRAY 1 VIEW on DOS: 02/19/25, XY CHEST PORTAB LE on DOS: 02/18/25, XY CHEST PORTABLE on DOS: 02/17/25, XY CHEST PORTABLE on DOS: 02/15/25 FINDINGS: LUNGS AND PLEURAL SPACES: Right basilar atelectasis or pneumonia. No pneumothorax. HEART: Unremarkable. No cardiomegaly. MEDIASTINUM: Unremarkable. Normal mediastinal contour. BONES/JOINTS: Unremarkable. No acute fracture. TUBES, LINES AND DEVICES: Right internal jugular central venous catheter tip in the superior vena c antonio. OTHER FINDINGS: . . . . . IMPRESSION: Right basilar atelectasis or pneumonia.
[2025-02-22] MEDS: POTASSIUM CHL 20 Meq TABLET PO ONE ×2 (06:04→06:05)
[2025-02-22] MEDS: MAGNESIUM SULFATE 1GM/100ML 100 ML IV SCH (06:04)
[2025-02-22 07:01] LABS: Band Neutrophils % (manual) 2; Eosinophils % (manual) 1 (0-7); Lymphocytes % (manual) 32 (10.0-50.0); Monocytes % (manual) 16 (0-12); Platelet Estimate Adequate
[2025-02-22] MEDS: FLORASTOR (S. BOULARDII) 250 MG CAP PO SCH (08:42)
--- NOTE | 2025-02-22 08:43 | DVHPN2 ---
Subjective Patient more awake and following commands. Reviewed: Care Plan, H&P, Labs, Medications Changes from previous H/P or p: No Changes General: Per HPI Objective Vitals Vital Signs Date Time Temp Pulse Resp B/P (MAP) Pulse Ox O2 Delivery O2 Flow Rate FiO2 02/22/25 06:30 90 24 137/72 (93) 96 02/22/25 06:00 Room Air* 0 21 02/22/25 04:00 98.9 98.9 Intake/Output Intake and Output 02/22/25 06:59 Intake Total 3615.5 ml Output Total 2825 ml Balance 790.5 ml Intake Oral 1392 ml IV Total 2223.5 ml Output Urine Total 2825 ml # Bowel Movements 8 General Appearance: Alert, Oriented X3, Cooperative, mild distress HEENT: Atraumatic, PERRLA Lungs: Clear to auscultation, Normal air movement Cardiovascular: Normal S1, Normal S2 Genitourinary: No Apparent Abnormalities (Mike catheter) Neuro: Other (Unable to assess) Skin: Dry, Intact Psych/Mental Status: Mental status NL, Mood NL Medications Current Medications Medications Dose Ordered Sig/Lex Route Start Time Stop Time Status Last Admin Dose Admin Vancomycin HCl 0 ml @ 0 mls/hr UD IV 02/15/25 19:45 UNV Ondansetron HCl 4 mg Q4HP PRN IV 02/15/25 19:45 Insulin Glargine 15 units DAILY SC 02/16/25 10:00 Cancel Fluconazole 100 ml @ 100 mls/hr DAILY IV 02/16/25 10:15 02/21/25 08:13 100 MLS/HR Enoxaparin Sodium 40 mg DAILY SC 02/17/25 10:00 02/21/25 08:13 40 MG Norepinephrine Bitartrate 250 ml @ 1.875 mls/ hr Q24H IV 02/19/25 03:15 02/19/25 03:08 1.875 MLS/HR Nystatin 5 ml QID MT 02/20/25 18:00 02/22/25 05:30 5 ML Insulin Human (Reg)/Sodium Chloride 100 ml @ 0.5 mls/hr Q24H IV 02/21/25 08:30 02/21/25 08:56 0.5 MLS/HR Diagnostic Test (Pha) 1 strip Q90MIN 02/21/25 09:00 02/22/25 05:56 1 STRIP Dextrose 50 ml PRN PRN IV 02/21/25 08:30 Sodium Bicarbonate 50 ml/ Sodium Chloride 1,050 ml @ 100 mls/hr [id number] IV 02/21/25 08:30 02/22/25 05:30 100 MLS/HR Metoprolol Tartrate 25 mg BID PO 02/21/25 10:00 02/21/25 21:26 25 MG Vancomycin HCl 125 mg QID PO 02/21/25 18:00 02/22/25 05:30 125 MG Saccharomyces Boulardii 250 mg DAILY PO 02/22/25 10:00 Acetaminophen 650 mg Q6HP PRN PO 02/21/25 19:45 02/21/25 20:20 650 MG Laboratory Results Laboratory Tests 02/22/25 04:35 Chemistry Test 02/21/25 12:03 02/21/25 18:25 02/22/25 04:35 Calcium Level 8.4 mg/dL (8.7-10.4) L 8.5 mg/dL (8.7-10.4) L 8.2 mg/dL (8.7-10.4) L Magnesium Level 1.7 mg/dL (1.6-2.6) 1.6 mg/dL (1.6-2.6) Urinalysis Test 02/15/25 20:28 02/21/25 11:00 Urine Yeast (Budding) Many /hpf (None Seen) Urine Color Light-yellow (Yellow) Urine Clarity Clear (Clear) Urine pH 5.5 (5.0-9.0) Urine Specific [place] 1.024 (1.001-1.035) Urine Protein Trace (Negative) H Urine Ketones 4+ (Negative) H Urine Blood Negative /uL (Negative) Urine Nitrite Negative (Negative) Urine Bilirubin Negative (Negative) Urine Urobilinogen 2 mg/dL (Negative) H Urine Leukocyte Esterase Negative /uL (Negative) Urine RBC 1 /hpf (0 - 4) Urine Microscopic WBC < 1 /HPF (0-5) Urine Squamous Epithelial Cells Few /hpf (<5) Urine Bacteria None seen /hpf (None Seen) Urine Mucus Few (None Seen) Urine Glucose 4+ mg/dL (Normal) H Microbiology Microbiology Date/Time Source Procedure Growth Status 02/20/25 16:55 Stool Clostridium difficile Toxin Assay - Final Complete 02/18/25 03:30 Nose MRSA Screen - Final Complete 02/15/25 20:28 Urine - Mike Port Urine Culture - Final Complete 02/15/25 18:01 Blood Blood Culture - Final NO GROWTH AFTER 5 DAYS OF INCUBATION. Complete Labs and/or images reviewed: Labs reviewed by me, Image(s) reviewed by me Assessment/Plan Assessment/Plan Impression: -acute respiratory failure with mechanical ventilation -complicated cystitis with yeast -hypernatremia -metabolic encephalopathy -diabetes mellitus -diabetic ketoacidosis -leukocytosis, rule out sepsis -acute kidney injury, vasomotor nephropathy -septic shock -hypoglycemia Hypokalemia -C diff colitis Plan: Events: Tachypnea and tachycardia resolved. Patient was found to go back into diabetic ketoacidosis. Patient was placed back on insulin drip, sodium bicarbonate drip with improvement with patient's clinical status. Patient tolerating oral intake. Awaiting for this a.m. serum ketones. Possible transitioned to regular insulin sliding scale with long-acting insulin. Patient was found to be positive for C diff. Bowel movement frequency has decreased. -continue vancomycin p.o., Florastor -continue regular insulin sliding scale. -continue sodium bicarbonate drip -electrolyte replacement as needed. -repeat labs, chest x-ray, ABG in a.m. Critical care time spent with patient discussing and formulating plan of care: 40 minutes. This does not include time spent performing procedures. This medical document was created using an electronic medical record system with [employer] dictation system. Although this document has been carefully reviewed, there may still be some phonetic and typographical errors. These areas are purely typographical due to imperfections of the software programs, and do not reflect any compromise in the patient's medical care. Plan discussed with: Patient, Other (RN) My Orders Orders - KO GARCIA NP Procedure Category Date Status Time Vancomycin Po PHA 02/21/25 In Process 18:00 Florastor (S. PHA 02/22/25 In Process Boulardii) (Florastor) 10:00 Chest Portable XY 02/22/25 Resulted 04:00 Beta-Hydroxybutyrate LAB 02/22/25 In Process 07:29 Date of Service: Feb 22, 2025 Billing Provider: SALBINO,CONNELL DELIVER DRIVER Common Visit Codes: [id number] CARE 30-74 MIN KO GARCIA NP Feb 22, 2025 08:43
[2025-02-22 12:44] LABS: Chloride 104 mmol/L (98-107); Potassium 3.6 mmol/L (3.5-5.1); Sodium 140 mmol/L (136-145)
[2025-02-22 12:45] LABS: Anion Gap 9 (5-15); Carbon Dioxide 27 mmol/L (20-31)
[2025-02-22 12:50] LABS: BUN/Creatinine Ratio 8.9 (10.0-20.0)
[2025-02-22 12:57] LABS: Blood Urea Nitrogen 5 mg/dL (9-23); Calcium 8.4 mg/dL (8.7-10.4); Glucose 217 mg/dL (74-106)
[2025-02-22 18:46] LABS: Chloride 105 mmol/L (98-107); Sodium 141 mmol/L (136-145)
[2025-02-22 18:47] LABS: Anion Gap 6 (5-15); Carbon Dioxide 30 mmol/L (20-31)
[2025-02-22 18:53] LABS: Blood Urea Nitrogen 7 mg/dL (9-23); Calcium 8.6 mg/dL (8.7-10.4); Glucose 147 mg/dL (74-106); Potassium 3.3 mmol/L (3.5-5.1)
--- NOTE | 2025-02-22 21:47 | DVHPN2 ---
Progress Note - Dictate Date Seen: Feb 22, 2025 Has the PT tested + for MRSA If YES, has PT been informed?: No Medical Necessity Reason Pt with a Central, PICC or Fol: Yes The following are medically ne: Fernandez Catheter Reason for fernandez catheter: Strict I&O Subjective Patient seen and examined at bedside. Breathing comfortably on room air. Overnight events reviewed. vital signs Vital Sign Date Time Temp Pulse Resp B/P (MAP) Pulse Ox O2 Delivery O2 Flow Rate FiO2 02/22/25 20:00 99.1 103 12 134/74 (94) 99 99.1 02/22/25 18:06 Nasal Cannula* 1 24 Total Intake and Output 02/21/25 02/21/25 02/22/25 15:00 23:00 07:00 Intake Total 610 ml 2002.0 ml 1103.5 ml Output Total 875 ml 1950 ml Balance 610 ml 1127.0 ml -846.5 ml medications Current Medications Medications Dose Ordered Sig/Lex Route Start Time Stop Time Status Last Admin Dose Admin Vancomycin HCl 0 ml @ 0 mls/hr UD IV 02/15/25 19:45 UNV Ondansetron HCl 4 mg Q4HP PRN IV 02/15/25 19:45 Insulin Glargine 15 units DAILY SC 02/16/25 10:00 Cancel Fluconazole 100 ml @ 100 mls/hr DAILY IV 02/16/25 10:15 02/22/25 08:37 100 MLS/HR Enoxaparin Sodium 40 mg DAILY SC 02/17/25 10:00 02/22/25 08:42 40 MG Norepinephrine Bitartrate 250 ml @ 1.875 mls/ hr Q24H IV 02/19/25 03:15 02/19/25 03:08 1.875 MLS/HR Nystatin 5 ml QID MT 02/20/25 18:00 02/22/25 18:07 5 ML Insulin Human (Reg)/Sodium Chloride 100 ml @ 0.5 mls/hr Q24H IV 02/21/25 08:30 02/21/25 08:56 0.5 MLS/HR Diagnostic Test (Pha) 1 strip Q90MIN 02/21/25 09:00 02/22/25 21:08 1 STRIP Dextrose 50 ml PRN PRN IV 02/21/25 08:30 Sodium Bicarbonate 50 ml/ Sodium Chloride 1,050 ml @ 100 mls/hr [id number] IV 02/21/25 08:30 02/22/25 16:55 100 MLS/HR Metoprolol Tartrate 25 mg BID PO 02/21/25 10:00 02/22/25 08:41 25 MG Vancomycin HCl 125 mg QID PO 02/21/25 18:00 02/22/25 18:07 125 MG Saccharomyces Boulardii 250 mg DAILY PO 02/22/25 10:00 02/22/25 08:42 250 MG Acetaminophen 650 mg Q6HP PRN PO 02/21/25 19:45 02/21/25 20:20 650 MG objective Gen.: Patient lying in bed in no apparent distress. Breathing on room air. Head: Normocephalic, atraumatic. Eyes: EOMI/PERRLA. Ears: Normal hearing. Normal anatomy. Neck/trachea: Trachea midline, supple. Nose: Normal external anatomy. Mouth: Moist mucous membranes. Chest: Decreased air entry bilaterally. No wheezing or rhonchi. Cardiovascular: Positive S1, positive S2. Regular rate and rhythm. Abdomen: Positive bowel sounds in all 4 quadrants. Soft, non-tender, non- distended. : Deferred. Rectal: Deferred. Skin: Warm, dry. Intact. Extremities: 2+ radial pulses bilaterally. No lower extremity edema. Neuro: Awake, alert, oriented x3. No gross motor or sensory deficits. Cranial nerves II through XII intact. Gait not assessed. laboratory and microbiology Laboratory Tests 02/22/25 18:14 02/22/25 04:35 Test 02/22/25 18:14 Range/Units Serum Glucose 147 H 74-106 mg/dL Assessment/Plan Impression: Altered mental status Acute hypoxemic respiratory failure, resolved Mechanical ventilation, s/p extubation Complicated cystitis Metabolic encephalopathy Septic shock Hypokalemia Acute kidney injury Diabetic ketoacidosis Severe metabolic acidosis Events: Patient is seen and examined at bedside Remains on room air Supplemental oxygen PRN No distress Off insulin - currently on hold Continue IV fluids Follow up beta-hydroxybutyrate level. On bicarb drip Continue antibiotics Continue antifungal/Nystatin Incentive spirometry Monitor renal function Monitor electrolytes. Supplement as necessary. Supplement potassium and magnesium Lovenox for DVT prophylaxis Labs and imaging reviewed. Plan: S/p extubation on 02/20/25 Supplemental oxygen PRN Titrate to keep O2 sats above 92%. Incentive spirometry Continue supportive care Empiric antibiotics Deescalate based on cultures Monitor renal function Monitor electrolytes. Supplement as necessary. Monitor ins and outs. DVT prophylaxis Prognosis: Poor given patient's multiple co-morbidities. Condition: Critical Rest of plan per hospitalist and other consultants. A total of 35 minutes of critical care time was spent reviewing the patient record, examining the patient, making a diagnostic and therapeutic plan, discussing this plan with the medical personnel, following up on diagnostic studies and following the patient for clinical stability excluding any and all procedures. At least 50% of this time was spent in direct, [id number] contact. Thank you, YOLANDA Atkinson, for allowing me to participate in this patient's care. Further recommendations will depend on the patient's clinical course. Please do not hesitate to contact me if you have any questions or concerns. This medical document was created using an electronic medical record system with [employer] dictation system. Although these documentations are being carefully reviewed, there may still be some phonetic and typographical changes. The errors are purely typographical, due to imperfection on the software program, and do not reflect any compromise in the patient's medical care. Dietary Evaluation Review Comments: Nutrition Recommendation: 1) TF Glucerna 1.2 Lan @ 45ml/hr x 24 hr (goal). Start @ 20ml/hr, increase 10ml/hr Q4H until goal rate is reached. TF at goal volume provides 100% energy & protein needs - 1296 kcal, 65 gm protein, 869 ml free water 2) Water flush 100ml Q6H if allowed 3) TPN if NPO>7 days 4) Vit C 200mg daily, zinc sulfate 220mg BID x 10 days, Chas 1 pk BID, MVI w/ minerals 1 tab daily 5) Monitor I/O, weight trend, lab values and skin integrity Expected Outcomes/Goals: To meet >75% estimated needs partial thickness wound to improve Fu 2-3 days Plan discussed with: Patient, Other (THIAGO Perez) Critical Care Time(min): 35 INDU COWAN MD Feb 22, 2025 21:47
[2025-02-22] MEDS: POTASSIUM CHL 20MEQ/100ML 100 ML IV ONE (22:44)
[2025-02-23] VITALS (34 sets, daily range): BP systolic 102–146; BP diastolic 49–80; PULSE 86–114; RESP 13–25; TEMP 98.3–99.3; O2SAT 87–100
--- NOTE | 2025-02-23 03:32 | DVH ---
CHEST RADIOGRAPH Indication: Follow-up Technique: Single frontal view of the chest was obtained Comparison: XY CHEST PORTABLE on DOS: 02/22/25, XY CHEST PORTABLE on DOS: 02/20/25, XY CHEST XRAY 1 VIEW on DOS: 02/19/25 IMPRESSION: Heart appears stable in size. Right IJ catheter tip in the region of the right atrium, unchanged. Mi ld pulmonary vascular congestion with patchy opacity in the right lower lung, stable. No sizable effu jonny or pneumothorax.
[2025-02-23 05:32] LABS: Hematocrit 31.5 % (36.0-46.0); Hemoglobin 10.7 g/dL (12.2-16.2); Mean Corpuscular Hemoglobin 28.2 pg (28.0-32.0); Mean Corpuscular Hgb Conc. 33.9 g/dL (32.0-36.0); Mean Corpuscular Volume 83.1 fL (80.0-100.0); Platelet Count (auto) 313 10^3/uL (140-450); Red Blood Cells 3.79 10^6/uL (4.0-5.20); Red Cell Distribution Width 14.2 % (11.8-14.3); White Blood Cell 4.3 10^3/uL (4.4-10.8)
[2025-02-23 05:39] LABS: Alanine Aminotransferase 11 U/L (7-40); Alkaline Phosphatase 92 U/L (46-116); Anion Gap 6 (5-15); Aspartate Aminotransferase 17 U/L (13-40); Chloride 103 mmol/L (98-107); Magnesium 1.7 mg/dL (1.6-2.6); Potassium 3.6 mmol/L (3.5-5.1); Sodium 141 mmol/L (136-145)
[2025-02-23 05:46] LABS: Basophils % (manual) 0 (0.0-2.0); Blast Cells 0; Myelocytes % 0; Promyelocytes % 0; Reactive Lymphocytes 0
[2025-02-23 05:49] LABS: Bilirubin, Total 0.3 mg/dL (0.2-1.0); Blood Urea Nitrogen 6 mg/dL (9-23); Calcium 8.2 mg/dL (8.7-10.4); Carbon Dioxide 32 mmol/L (20-31); Glucose 114 mg/dL (74-106); Total Protein 4.8 g/dL (5.7-8.2)
[2025-02-23 06:58] LABS: Band Neutrophils % (manual) 1; Eosinophils % (manual) 2 (0-7); Lymphocytes % (manual) 52 (10.0-50.0); Metamyelocytes % 1; Monocytes % (manual) 14 (0-12); Platelet Estimate Adequate
[2025-02-23] MEDS ORDERED: DEXTROSE (50%) 50ML SYRG IV PRN (07:45)
[2025-02-23] MEDS: SODIUM CHLORIDE 0.9% 1,000 ML IV SCH (07:45)
[2025-02-23] MEDS: ACCU-CHEK COMFORT CURVE STRIP VI SCH (08:00)
[2025-02-23] MEDS: INSULIN LANTUS (GLARGINE) 1 /0.01ml (100units/ml) SC SCH (09:25)
[2025-02-23] MEDS: InsuLIN REG 1unit/0.01ml Soln (100units/ml) SC SCH (09:25)
--- NOTE | 2025-02-23 10:11 | DVHPN2 ---
Subjective Patient A&O x4. Reviewed: Care Plan, H&P, Labs, Medications Changes from previous H/P or p: No Changes General: Per HPI Objective Vitals Vital Signs Date Time Temp Pulse Resp B/P (MAP) Pulse Ox O2 Delivery O2 Flow Rate FiO2 02/23/25 09:39 20 94 Room Air* 0 21 02/23/25 09:39 114 02/23/25 09:23 137/71 02/23/25 08:00 99.0 99.0 Intake/Output Intake and Output 02/23/25 07:00 Intake Total 4401.5 ml Output Total 4200 ml Balance 201.5 ml Intake Oral 1906 ml IV Total 2495.5 ml Output Urine Total 4200 ml # Bowel Movements 5 General Appearance: Alert, Oriented X3, Cooperative, mild distress HEENT: Atraumatic, PERRLA Lungs: Clear to auscultation, Normal air movement Cardiovascular: Normal S1, Normal S2 Genitourinary: No Apparent Abnormalities (Mike catheter) Neuro: Other (Unable to assess) Skin: Dry, Intact Psych/Mental Status: Mental status NL, Mood NL Medications Current Medications Medications Dose Ordered Sig/Lex Route Start Time Stop Time Status Last Admin Dose Admin Vancomycin HCl 0 ml @ 0 mls/hr UD IV 02/15/25 19:45 UNV Ondansetron HCl 4 mg Q4HP PRN IV 02/15/25 19:45 Insulin Glargine 15 units DAILY SC 02/16/25 10:00 Cancel Enoxaparin Sodium 40 mg DAILY SC 02/17/25 10:00 02/23/25 09:23 40 MG Nystatin 5 ml QID MT 02/20/25 18:00 02/23/25 05:53 5 ML Metoprolol Tartrate 25 mg BID PO 02/21/25 10:00 02/23/25 09:23 25 MG Vancomycin HCl 125 mg QID PO 02/21/25 18:00 02/23/25 05:53 125 MG Saccharomyces Boulardii 250 mg DAILY PO 02/22/25 10:00 02/23/25 09:23 250 MG Acetaminophen 650 mg Q6HP PRN PO 02/21/25 19:45 02/21/25 20:20 650 MG Insulin Glargine 10 units DAILY@1000 SC 02/23/25 10:00 02/23/25 09:25 10 UNITS Diagnostic Test (Pha) 1 strip IQ4HR 02/23/25 08:00 Insulin Human Regular IQ4HR SC 02/23/25 08:00 02/23/25 09:25 4 UNITS Dextrose 50 ml UD PRN IV 02/23/25 07:45 Sodium Chloride 1,000 ml @ 60 mls/hr [id number] IV 02/23/25 07:45 Laboratory Results Laboratory Tests 02/23/25 04:37 Chemistry Test 02/22/25 12:20 02/22/25 18:14 02/23/25 04:37 Calcium Level 8.4 mg/dL (8.7-10.4) L 8.6 mg/dL (8.7-10.4) L 8.2 mg/dL (8.7-10.4) L Albumin 3.0 g/dL (3.2-4.8) L Magnesium Level 1.7 mg/dL (1.6-2.6) Total Protein 4.8 g/dL (5.7-8.2) L LFT Test 02/23/25 04:37 Alanine Aminotransferase (ALT) 11 U/L (7-40) Alkaline Phosphatase 92 U/L (46-116) Aspartate Amino Transferase (AST) 17 U/L (13-40) Total Bilirubin 0.3 mg/dL (0.2-1.0) Urinalysis Test 02/15/25 20:28 02/21/25 11:00 Urine Yeast (Budding) Many /hpf (None Seen) Urine Color Light-yellow (Yellow) Urine Clarity Clear (Clear) Urine pH 5.5 (5.0-9.0) Urine Specific [place] 1.024 (1.001-1.035) Urine Protein Trace (Negative) H Urine Ketones 4+ (Negative) H Urine Blood Negative /uL (Negative) Urine Nitrite Negative (Negative) Urine Bilirubin Negative (Negative) Urine Urobilinogen 2 mg/dL (Negative) H Urine Leukocyte Esterase Negative /uL (Negative) Urine RBC 1 /hpf (0 - 4) Urine Microscopic WBC < 1 /HPF (0-5) Urine Squamous Epithelial Cells Few /hpf (<5) Urine Bacteria None seen /hpf (None Seen) Urine Mucus Few (None Seen) Urine Glucose 4+ mg/dL (Normal) H Microbiology Microbiology Date/Time Source Procedure Growth Status 02/20/25 16:55 Stool Clostridium difficile Toxin Assay - Final Complete 02/18/25 03:30 Nose MRSA Screen - Final Complete 02/15/25 20:28 Urine - Mike Port Urine Culture - Final Complete 02/15/25 18:01 Blood Blood Culture - Final NO GROWTH AFTER 5 DAYS OF INCUBATION. Complete Labs and/or images reviewed: Labs reviewed by me, Image(s) reviewed by me Assessment/Plan Assessment/Plan Impression: -acute respiratory failure with mechanical ventilation -complicated cystitis with yeast -hypernatremia -metabolic encephalopathy -diabetes mellitus -diabetic ketoacidosis -leukocytosis, rule out sepsis -acute kidney injury, vasomotor nephropathy -septic shock -hypoglycemia Hypokalemia -C diff colitis Plan: Events: Patient hemodynamically stable. Blood sugars have been normalized. Tolerating oral intake. Stop insulin drip. Stop sodium bicarbonate drip. Start normal saline. Physical therapy. Transferred to telemetry floor -continue vancomycin p.o., Florastor -continue regular insulin sliding scale. Add Lantus 10 units q.h.s. -electrolyte replacement as needed. -repeat labs, chest x-ray, ABG in a.m. Total time spent with patient discussing and formulating plan of care: 35 minutes. This medical document was created using an electronic medical record system with [employer] dictation system. Although this document has been carefully reviewed, there may still be some phonetic and typographical errors. These areas are purely typographical due to imperfections of the software programs, and do not reflect any compromise in the patient's medical care. Plan discussed with: Patient, Other (RN) My Orders Orders - KO GARCIA BIN PACKER Procedure Category Date Status Time Insulin Lantus PHA 02/23/25 In Process (Glargine) (Lantus) 10:00 Glucose Blood PHA 02/23/25 In Process (Accu-Chek Comfort 08:00 Insulin R (Human) PHA 02/23/25 In Process (Insulin R) 08:00 Dextrose 50% Syringe PHA 02/23/25 In Process 07:45 Transfer Orders XFER 02/23/25 Transmitted 07:37 Sodium Chloride 0.9% PHA 02/23/25 In Process 07:45 Consistent DIET 02/23/25 [facility]Diabetes Breakfast Date of Service: Feb 23, 2025 Billing Provider: KO GARCIA NP Common Visit Codes: [id number] INP/OBS CARE(HIGH) KO GARCIA NP Feb 23, 2025 10:11
--- NOTE | 2025-02-23 20:20 | DVHPN2 ---
Progress Note - Dictate Date Seen: Feb 23, 2025 Has the PT tested + for MRSA If YES, has PT been informed?: No Medical Necessity Reason Pt with a Central, PICC or Fol: Yes The following are medically ne: Fernandez Catheter Reason for fernandez catheter: Strict I&O Subjective Patient seen and examined at bedside. Currently on supplemental oxygen Overnight events reviewed. vital signs Vital Sign Date Time Temp Pulse Resp B/P (MAP) Pulse Ox O2 Delivery O2 Flow Rate FiO2 02/23/25 19:56 Room Air* 0 21 02/23/25 17:00 99.1 92 18 117/69 (85) 99 99.1 Total Intake and Output 02/22/25 02/22/25 02/23/25 15:00 23:00 07:00 Intake Total 911 ml 1982.0 ml 1508.5 ml Output Total 2000 ml 2200 ml Balance 911 ml -18.0 ml -691.5 ml medications Current Medications Medications Dose Ordered Sig/Lex Route Start Time Stop Time Status Last Admin Dose Admin Vancomycin HCl 0 ml @ 0 mls/hr UD IV 02/15/25 19:45 UNV Ondansetron HCl 4 mg Q4HP PRN IV 02/15/25 19:45 Insulin Glargine 15 units DAILY SC 02/16/25 10:00 Cancel Enoxaparin Sodium 40 mg DAILY SC 02/17/25 10:00 02/23/25 09:23 40 MG Nystatin 5 ml QID MT 02/20/25 18:00 02/23/25 17:52 5 ML Metoprolol Tartrate 25 mg BID PO 02/21/25 10:00 02/23/25 09:23 25 MG Vancomycin HCl 125 mg QID PO 02/21/25 18:00 02/23/25 17:52 125 MG Saccharomyces Boulardii 250 mg DAILY PO 02/22/25 10:00 02/23/25 09:23 250 MG Acetaminophen 650 mg Q6HP PRN PO 02/21/25 19:45 02/21/25 20:20 650 MG Insulin Glargine 10 units DAILY@1000 SC 02/23/25 10:00 02/23/25 09:25 10 UNITS Diagnostic Test (Pha) 1 strip IQ4HR 02/23/25 08:00 02/23/25 19:44 1 STRIP Insulin Human Regular IQ4HR SC 02/23/25 08:00 02/23/25 19:52 3 UNITS Dextrose 50 ml UD PRN IV 02/23/25 07:45 Sodium Chloride 1,000 ml @ 60 mls/hr [id number] IV 02/23/25 07:45 objective Gen.: Patient lying in bed in no apparent distress. On supplemental oxygen. Head: Normocephalic, atraumatic. Eyes: EOMI/PERRLA. Ears: Normal hearing. Normal anatomy. Neck/trachea: Trachea midline, supple. Nose: Normal external anatomy. Mouth: Moist mucous membranes. Chest: Decreased air entry bilaterally. No wheezing or rhonchi. Cardiovascular: Positive S1, positive S2. Regular rate and rhythm. Abdomen: Positive bowel sounds in all 4 quadrants. Soft, non-tender, non- distended. : Deferred. Rectal: Deferred. Skin: Warm, dry. Intact. Extremities: 2+ radial pulses bilaterally. No lower extremity edema. Neuro: Awake, alert, oriented x3. No gross motor or sensory deficits. Cranial nerves II through XII intact. Gait not assessed. laboratory and microbiology Laboratory Tests 02/23/25 04:37 Test 02/23/25 04:37 Range/Units Serum Glucose 114 H 74-106 mg/dL Assessment/Plan Impression: Altered mental status Acute hypoxemic respiratory failure, resolved Mechanical ventilation, s/p extubation Complicated cystitis Metabolic encephalopathy Septic shock Hypokalemia Acute kidney injury Diabetic ketoacidosis Severe metabolic acidosis Events: Patient is seen and examined at bedside Currently on supplemental oxygen at 2 LPM NC Taper O2 as tolerated No distress CXR reviewed, demonstrates mild pulmonary vascular congestion with patchy opacity in the right lower lung, stable. No effusion or pneumothorax. Accu-Cheks, ISS. On bicarb drip Continue antibiotics - PO vancomycin for C. difficile Continue antifungal/Nystatin Incentive spirometry Lovenox for DVT prophylaxis Patient is stable for downgrade from the pulmonary standpoint. Follow up beta-hydroxybutyrate level. Labs and imaging reviewed. Plan: S/p extubation on 02/20/25 Supplemental oxygen Titrate to keep O2 sats above 92%. Incentive spirometry Continue supportive care Antibiotics Monitor renal function Monitor electrolytes. Supplement as necessary. Monitor ins and outs. DVT prophylaxis Prognosis: Poor given patient's multiple co-morbidities. Rest of plan per hospitalist and other consultants. Thank you, YOLANDA Atkinson, for allowing me to participate in this patient's care. Further recommendations will depend on the patient's clinical course. Please do not hesitate to contact me if you have any questions or concerns. This medical document was created using an electronic medical record system with [employer] dictation system. Although these documentations are being carefully reviewed, there may still be some phonetic and typographical changes. The errors are purely typographical, due to imperfection on the software program, and do not reflect any compromise in the patient's medical care. Dietary Evaluation Review Comments: Nutrition Recommendation: 1) TF Glucerna 1.2 Lan @ 45ml/hr x 24 hr (goal). Start @ 20ml/hr, increase 10ml/hr Q4H until goal rate is reached. TF at goal volume provides 100% energy & protein needs - 1296 kcal, 65 gm protein, 869 ml free water 2) Water flush 100ml Q6H if allowed 3) TPN if NPO>7 days 4) Vit C 200mg daily, zinc sulfate 220mg BID x 10 days, Chas 1 pk BID, MVI w/ minerals 1 tab daily 5) Monitor I/O, weight trend, lab values and skin integrity Expected Outcomes/Goals: To meet >75% estimated needs partial thickness wound to improve Fu 2-3 days Plan discussed with: Patient, Other (THIAGO Hu) INDU COWAN MD Feb 23, 2025 20:20
[2025-02-24 01:00] VITALS: BP 130/90; PULSE 89; RESP 18; TEMP 98.3; O2SAT 95
[2025-02-24 05:00] VITALS: BP 135/77; PULSE 103; RESP 18; TEMP 98.1; O2SAT 95
[2025-02-24 07:52] VITALS: PULSE 101; O2SAT 97
[2025-02-24 08:00] VITALS: PULSE 110
[2025-02-24 08:27] VITALS: BP 134/78; PULSE 107; RESP 18; TEMP 98.5; O2SAT 96
[2025-02-24 13:19] VITALS: BP 129/75; PULSE 91; RESP 17; TEMP 98.9; O2SAT 96
[2025-02-24] MEDS ORDERED: VANC125C3 PO (14:25)
--- NOTE | 2025-02-24 15:54 | DVHDS2 ---
Discharge Summary Date of Admission February 15, 2025 at 19:42 Date of Discharge: Feb 24, 2025 Admitting Diagnosis Diabetic ketoacidosis Labs/Diagnostic Data: Laboratory Results Test 02/24/25 11:58 02/23/25 04:37 02/22/25 08:15 02/22/25 04:35 POC Glucose 180 mg/dl (70-106) White Blood Count 4.3 10^3/uL (4.4-10.8) Red Blood Count 3.79 10^6/uL (4.0-5.20) Hemoglobin 10.7 g/dL (12.2-16.2) Hematocrit 31.5 % (36.0-46.0) Mean Corpuscular Volume 83.1 fL (80.0-100.0) Mean Corpuscular Hemoglobin 28.2 pg (28.0-32.0) Mean Corpuscular Hemoglobin Concent 33.9 g/dL (32.0-36.0) Red Cell Distribution Width 14.2 % (11.8-14.3) Platelet Count 313 10^3/uL (140-450) Mean Platelet Volume 7.5 fL (6.9-10.8) Neutrophils (%) (Auto) % (37.0-80.0) Lymphocytes (%) (Auto) % (10.0-50.0) Monocytes (%) (Auto) % (0.0-12.0) Basophils (%) (Auto) % (0.0-2.0) Neutrophils # (Auto) 10 ^3/uL (1.6-8.6) Lymphocytes # (Auto) 10 ^3/uL (0.4-5.4) Monocytes # (Auto) 10 ^3/uL (0-1.3) Differential Total Cells Counted 100.0 (100) Neutrophils % (Manual) 30 (37.0-80.0) Band Neutrophils % (Manual) 1 Lymphocytes % (Manual) 52 (10.0-50.0) Monocytes % (Manual) 14 (0-12) Eosinophils % (Manual) 2 (0-7) Basophils % (Manual) 0 (0.0-2.0) Metamyelocytes % (manual) 1 Myelocytes % (Manual) 0 Promyelocytes % (Manual) 0 Blast Cells % (Manual) 0 Reactive Lymphocytes 0 Platelet Estimate Adequate Sodium Level 141 mmol/L (136-145) Potassium Level 3.6 mmol/L (3.5-5.1) Chloride Level 103 mmol/L (98-107) Carbon Dioxide Level 32 mmol/L (20-31) Anion Gap 6 (5-15) Blood Urea Nitrogen 6 mg/dL (9-23) Creatinine 0.50 mg/dL (0.550-1.02) Glomerular Filtration Rate Calc 107 mL/min (>90) BUN/Creatinine Ratio 12.0 (10.0-20.0) Serum Glucose 114 mg/dL (74-106) Calcium Level 8.2 mg/dL (8.7-10.4) Magnesium Level 1.7 mg/dL (1.6-2.6) Total Bilirubin 0.3 mg/dL (0.2-1.0) Aspartate Amino Transferase (AST) 17 U/L (13-40) Alanine Aminotransferase (ALT) 11 U/L (7-40) Alkaline Phosphatase 92 U/L (46-116) Total Protein 4.8 g/dL (5.7-8.2) Albumin 3.0 g/dL (3.2-4.8) Cortisol AM Sample 19.98 ug/dL (5.27-22.45) Beta-Hydroxybutyric Acid 2.212 mmol/L (< 0.4) Test 02/21/25 18:25 02/21/25 12:03 02/21/25 11:00 02/21/25 06:45 Lactic Acid Level 1.8 mmol/L (0.4-2.0) Serum Osmolality 305 mOsm/kg (278-298) Urine Color Light-yellow (Yellow) Urine Clarity Clear (Clear) Urine pH 5.5 (5.0-9.0) Urine Specific Fords 1.024 (1.001-1.035) Urine Protein Trace (Negative) Urine Ketones 4+ (Negative) Urine Blood Negative /uL (Negative) Urine Nitrite Negative (Negative) Urine Bilirubin Negative (Negative) Urine Urobilinogen 2 mg/dL (Negative) Urine Leukocyte Esterase Negative /uL (Negative) Urine RBC 1 /hpf (0 - 4) Urine Microscopic WBC < 1 /HPF (0-5) Urine Squamous Epithelial Cells Few /hpf (<5) Urine Bacteria None seen /hpf (None Seen) Urine Mucus Few (None Seen) Urine Glucose 4+ mg/dL (Normal) Blood Gas Specimen Type Arterial Blood Gas Sample Site Left radial Blood Gas Patient Temperature 37.0 Arterial Blood Date Drawn [id number] Arterial Blood pH 7.186 (7.350-7.450) Arterial Blood Partial Pressure CO2 < 14.1 mmHg (32.0-45.0) Arterial Blood Partial Pressure O2 137.0 mmHg (83.0-108.0) Arterial Blood Oxygen Saturation 97.9 % (94.0-98.0) Arterial Blood Oxyhemoglobin 97.3 % (94.0-98.0) Arterial Blood Carboxyhemoglobin 0.0 % (0.5-1.5) Arterial Blood Methemoglobin 0.6 % (0.0-1.5) Mikal Test Yes Blood Gas Total Hemoglobin 13.00 g/dL (12.0-16.0) Blood Gas Modality Nasal cannula Blood Gas Spontaneous Rate 34 FiO2 % 28.0 Blood Gas Critical Value Read Back Yes Blood Gas Notified Whom Dr. chana crespo Blood Gas Notified Time [id number] Blood Gas Notified By Test 02/21/25 04:55 02/21/25 01:45 02/20/25 13:31 02/20/25 06:27 Erythrocyte Sedimentation Rate 41 mm/hr (0-20) C-Reactive Protein High Sensitivity 4.01 mg/dL (<1.0) Thyroid Stimulating Hormone (TSH) 0.31 uIU/mL (0.55-4.78) Arterial Blood HCO3 11.1 mmol/L (21.0-28.0) Arterial Blood Base Excess -12.5 mmol/L (-2.0-3.0) Blood Gas Pressure Support 7 Blood Gas PEEP or CPAP 5.0 Blood Gas Set Respiration Rate 14.0 Blood Gas Tidal Volume 450.0 Test 02/20/25 04:28 02/18/25 13:20 02/17/25 12:00 02/16/25 07:42 Eosinophils (%) (Auto) 1.5 % (0.0-7.0) Eosinophils # (Auto) 0.1 10 ^3/uL (0-0.8) Basophils # (Auto) 0.1 10 ^3/uL (0-0.2) Nucleated Red Blood Cells 0.1 % Phosphorus Level 2.0 mg/dL (2.4-5.1) Vancomycin Level Trough 8.0 ug/mL (5-10) Random Vancomycin Level 17.5 ug/mL (5-10) Test 02/15/25 20:28 02/15/25 16:31 Prothrombin Time 9.7 sec (9.3-11.8) Prothrombin Time INR 0.91 (0.9-1.15) Activated Partial Thromboplast Time 27.3 SEC (24.5-34.5) Urine Yeast (Budding) Many /hpf (None Seen) Large Platelets Few Other Laboratory Tests 02/23/25 04:37 Brief Hx & Hospital Course: History of Present Illness 59-year-old female with diabetes recent admission for DKA discharge February 06, 2025 chief complaint patient was here with the abdominal pain and vomiting but she returns with nausea and vomiting and found to have a blood glucose unreadable on a monitor. Patient was recently admitted and discharged for the same symptoms. When going to the bedside no family was available but according to the ED records patient had a white count of 34.0 hemoglobin 16.6 patient had an ABG was pH 6.858 bicarb was 3.9 potassium was 5.6 chloride was 92 CO2 was less than 10 gap was 27.0 BUN was 33 creatinine was one point seven nine glucose was 737 lactate was 3.6 ED team have provided patient with bicarb it appears patient became more lethargic and less responsive so patient was intubated in the ED with Versed drip after intubation blood cultures x2 was sent Lantus was given 15 units and also started on insulin drip. Patient be admitted to ICU for DKA management. Course of hospitalization: Patient had worsening overall clinical status requiring mechanical intubation. Patient had resolution of diabetic ketoacidosis. Patient was subsequently weaned off mechanical ventilation. Patient was noted to have multiple bowel movements, which was positive for C diff. Patient was started on p.o. vancomycin 125 mg p.o. 4 times a day as well as Florastor 250 mg p.o. daily. Patient had resolution of her diarrhea. Patient was tolerating oral intake. Blood sugars has been stable. Patient will be discharged home and follow up with her PCP in 1-2 weeks. Education and translation was performed using electronic benefits specialist as well as speaking with the patient's nephew. Patient will be continued on vancomycin 125 mg p.o. 4 times a day for additional 10 days. All questions were answered. Physical examination General: Alert and Oriented x3. No acute distress. Well-nourished. Eyes: EOMI. Anicteric. HENT: Moist mucous membranes. Lungs: Clear to auscultation bilaterally. No accessory muscle use. Cardiovascular: Regular rate and rhythm. No murmur. No JVD. Abdomen: Soft, non-tender and non-distended. No palpable masses. Extremities: No edema. Non-tender. Skin: No rashes or lesions. Warm. Neurologic: No focal neurological deficits. CN II-XII grossly intact, but not individually tested. Psychiatric: Cooperative. Appropriate mood and affect. Total time spent with patient discussing and formulating plan of care: 35 minutes. This medical document was created using an electronic medical record system with [employer] dictation system. Although this document has been carefully reviewed, there may still be some phonetic and typographical errors. These areas are purely typographical due to imperfections of the software programs, and do not reflect any compromise in the patient's medical care. Condition at Discharge: Fair Final Diagnosis/Problems List DkA C diff colitis Secondary diagnosis: Impression: -acute respiratory failure with mechanical ventilation -complicated cystitis with yeast -hypernatremia -metabolic encephalopathy -diabetes mellitus -diabetic ketoacidosis -leukocytosis, rule out sepsis -acute kidney injury, vasomotor nephropathy -septic shock -hypoglycemia Hypokalemia -C diff colitis Discharge Disposition: Home Discharge Instruct/Medications Diet: Consistent carbohydrate Activity: See Comment Follow Up/Referral: pCP in 1 week Medications: Continue all home medications Vancomycin 125mg po qid x 10 days 36 Discharge Statement: "Patient was advised to return to the ER or call 911 if any headaches, dizziness, shortness of breath, chest pain, abdominal pain, bleeding, fevers, or worsening of medical condition. Patient was counseled about treatment plan, medications, possible side effects, patientverbalized understanding. All questions were answered to the best of my ability. This discharge took greater then 30 minutes in planning, reviewing documentation, counseling the patient, and discussing with other team members." ASSESSMENT ASSESSMENT Assessment DkA C diff colitis Date of Service: Feb 24, 2025 Billing Provider: KO GARCIA NP Common Visit Codes: 18563-MGS/OBS DISCH DAY >30min KO GARCIA NP Feb 24, 2025 15:54
--- NOTE | 2025-02-24 23:22 | DVHPN2 ---
Progress Note - Dictate Date Seen: Feb 24, 2025 Has the PT tested + for MRSA If YES, has PT been informed?: No Medical Necessity Reason Pt with a Central, PICC or Fol: Yes The following are medically ne: Fernandez Catheter Reason for fernandez catheter: Strict I&O Subjective Patient seen and examined at bedside. Currently breathing on room air Overnight events reviewed. vital signs Vital Sign Date Time Temp Pulse Resp B/P (MAP) Pulse Ox O2 Delivery O2 Flow Rate FiO2 02/24/25 13:19 98.9 91 17 129/75 (93) 96 98.9 02/24/25 07:52 Room Air* 0 21 Total Intake and Output 02/23/25 02/23/25 02/24/25 15:00 23:00 07:00 Intake Total 900 ml Output Total 1950 ml 500 ml Balance -1950 ml 400 ml medications Current Medications Medications Dose Ordered Sig/Lex Route Start Time Stop Time Status Last Admin Dose Admin Vancomycin HCl 0 ml @ 0 mls/hr UD IV 02/15/25 19:45 UNV Insulin Glargine 15 units DAILY SC 02/16/25 10:00 Cancel objective Gen.: Patient lying in bed in no apparent distress. On room air. Head: Normocephalic, atraumatic. Eyes: EOMI/PERRLA. Ears: Normal hearing. Normal anatomy. Neck/trachea: Trachea midline, supple. Nose: Normal external anatomy. Mouth: Moist mucous membranes. Chest: Decreased air entry bilaterally. No wheezing or rhonchi. Cardiovascular: Positive S1, positive S2. Regular rate and rhythm. Abdomen: Positive bowel sounds in all 4 quadrants. Soft, non-tender, non- distended. : Deferred. Rectal: Deferred. Skin: Warm, dry. Intact. Extremities: 2+ radial pulses bilaterally. No lower extremity edema. Neuro: Awake, alert, oriented x3. No gross motor or sensory deficits. Cranial nerves II through XII intact. Gait not assessed. laboratory and microbiology Laboratory Tests 02/23/25 04:37 Test 02/23/25 04:37 Range/Units Serum Glucose 114 H 74-106 mg/dL Assessment/Plan Impression: Altered mental status Acute hypoxemic respiratory failure, resolved Complicated cystitis Metabolic encephalopathy Septic shock Hypokalemia Acute kidney injury Diabetic ketoacidosis Severe metabolic acidosis Events: Patient is seen and examined at bedside Breathing comfortably on room air Supplemental oxygen PRN No distress No new respiratory complaints. CXR on 02/23/25 demonstrated mild pulmonary vascular congestion with patchy opacity in the right lower lung, stable. No effusion or pneumothorax. Accu-Cheks, ISS. Continue antibiotics - PO vancomycin for C. difficile Continue antifungal/Nystatin Incentive spirometry Lovenox for DVT prophylaxis Patient is stable for discharge from the pulmonary standpoint. Labs and imaging reviewed. Plan: S/p extubation on 02/20/25 Supplemental oxygen PRN Titrate to keep O2 sats above 92%. Incentive spirometry Continue supportive care Antibiotics Monitor renal function Monitor electrolytes. Supplement as necessary. Monitor ins and outs. DVT prophylaxis Prognosis: Poor given patient's multiple co-morbidities. Rest of plan per hospitalist and other consultants. Thank you, YOLANDA Atkinson, for allowing me to participate in this patient's care. Further recommendations will depend on the patient's clinical course. Please do not hesitate to contact me if you have any questions or concerns. This medical document was created using an electronic medical record system with [employer] dictation system. Although these documentations are being carefully reviewed, there may still be some phonetic and typographical changes. The errors are purely typographical, due to imperfection on the software program, and do not reflect any compromise in the patient's medical care. Dietary Evaluation Review Comments: Nutrition Recommendation: 1) TF Glucerna 1.2 Lan @ 45ml/hr x 24 hr (goal). Start @ 20ml/hr, increase 10ml/hr Q4H until goal rate is reached. TF at goal volume provides 100% energy & protein needs - 1296 kcal, 65 gm protein, 869 ml free water 2) Water flush 100ml Q6H if allowed 3) TPN if NPO>7 days 4) Vit C 200mg daily, zinc sulfate 220mg BID x 10 days, Chas 1 pk BID, MVI w/ minerals 1 tab daily 5) Monitor I/O, weight trend, lab values and skin integrity Expected Outcomes/Goals: To meet >75% estimated needs partial thickness wound to improve Fu 2-3 days Plan discussed with: Patient, Other (THIAGO Khanna) INDU COWAN MD Feb 24, 2025 23:22
== END 2025-02-24 16:25 | disposition home or self-care (01) | DRG 720 ==
LOC: ER 15:35 → OVERFLOW 19:42 → ICU CENTRL 02-18 03:15 → TELE-CENTR 02-23 14:54
PROVIDERS: ADMIT Nurse Practitioner Acute Care; ATTEND Nurse Practitioner Acute Care
PROC: 02HV33Z Insertion of Infusion Device into Superior Vena Cava, Percutaneous Approach (ICD-10-PCS; principal; 2025-02-15)
PROC: 5A1955Z Respiratory Ventilation, Greater than 96 Consecutive Hours (ICD-10-PCS; 2025-02-15)
PROC: 0BH17EZ Insertion of Endotracheal Airway into Trachea, Via Natural or Artificial Opening (ICD-10-PCS; 2025-02-15)
DX: A41.9 Sepsis, unspecified organism (principal); N17.0 Acute kidney failure with tubular necrosis; J96.01 Acute respiratory failure with hypoxia; R65.21 Severe sepsis with septic shock; E11.10 Type 2 diabetes mellitus with ketoacidosis without coma; G93.41 Metabolic encephalopathy; A04.72 Enterocolitis due to Clostridium difficile, not specified as recurrent; E87.1 Hypo-osmolality and hyponatremia; I10 Essential (primary) hypertension; E87.5 Hyperkalemia; E86.0 Dehydration; E87.0 Hyperosmolality and hypernatremia; E87.6 Hypokalemia; B37.41 Candidal cystitis and urethritis; Z79.899 Other long term (current) drug therapy; Z79.4 Long term (current) use of insulin; Z79.84 Long term (current) use of oral hypoglycemic drugs; Z83.3 Family history of diabetes mellitus
CPT/HCPCS: 31500; 36415; 36556; 36600; 71045; 80048; 80053; 80202; 81001; 82010; 82533; 82805; 82962; 83605; 83735; 83930; 84100; 84132; 84443; 85007; 85025; 85027; 85610; 85652; 85730; 86141; 87040; 87070; 87081; 87086; 87205; 87493; 93005; 94002; 94003; 94640; 96361; 96372; 96374; 99291; 99292; G0378; J0330; J0692; J1450; J1815; J3480

== ENCOUNTER 2025-07-20 22:58 | Inpatient (IN) | payer MEDICAID, OTHER ==
[~2025-07-20] VITALS: Ht 154.9 cm; Wt 79.6 kg
[~2025-07-20 22:58] MED LIST changes: +VANC125C3 PO
[2025-07-20 23:10] VITALS: RESP 40; O2SAT 99
[2025-07-20] MEDS: SODIUM CHLORIDE 0.9% 1,000 ML IV ONE (23:34)
[2025-07-20] MEDS: InsuLIN REG 1unit/0.01ml Soln (100units/ml) IV ONE (23:45)
[2025-07-20] MEDS: ONDANSETRON HCL 4 MG/2 ML VIAL IV ONE (23:45)
[2025-07-21] VITALS (24 sets, daily range): BP systolic 93–126; BP diastolic 45–53; PULSE 86–105; RESP 11–20; TEMP 98.6–99; O2SAT 96–100
--- NOTE | 2025-07-21 00:08 | DVH ---
CHEST RADIOGRAPH Indication: gen weak Technique: 1 view Comparison: XY CHEST PORTABLE on DOS: 02/23/25, XY CHEST PORTABLE on DOS: 02/22/25, XY CHEST PORTABLE on DOS: 02/20/25, XY CHEST XRAY 1 VIEW on DOS: 02/19/25, XY CHEST PORTABLE on DOS: 02/18/25 FINDINGS: Lines and Tubes: External leads. Lungs/Pleura: No focal consolidation, pleural effusion or pneumothorax. Cardiomediastinum: Unremarkable. Other: No acute osseous abnormality. IMPRESSION: 1. No acute cardiopulmonary abnormality.
[2025-07-21 00:16] LABS: Hemoglobin 14.3 g/dL (12.2-16.2)
[2025-07-21 00:17] LABS: Hematocrit 48.7 % (36.0-46.0); Mean Corpuscular Hemoglobin 27.3 pg (28.0-32.0); Mean Corpuscular Volume 93.4 fL (80.0-100.0)
[2025-07-21 00:38] LABS: Lactic Acid w/Reflex 4.1 mmol/L (0.4-2.0)
[2025-07-21 00:48] LABS: Alanine Aminotransferase 27 U/L (7-40); Albumin 3.8 g/dL (3.2-4.8); Bilirubin, Total 0.5 mg/dL (0.2-1.0); Calcium 9.1 mg/dL (8.7-10.4); Chloride 99 mmol/L (98-107); Total Protein 6.4 g/dL (5.7-8.2)
[2025-07-21 00:51] LABS: Alkaline Phosphatase 136 U/L (46-116)
[2025-07-21 00:54] LABS: Carbon Dioxide < 10 mmol/L (20-31)
[2025-07-21 00:57] LABS: Anion Gap 26.00001 (5-15); Potassium 6.4 mmol/L (3.5-5.1); Sodium 135 mmol/L (136-145)
[2025-07-21 00:58] LABS: BUN/Creatinine Ratio 16.6 (10.0-20.0); Blood Urea Nitrogen 24 mg/dL (9-23); Glucose 688 mg/dL (74-106)
[2025-07-21] MEDS: SODIUM BICARB 8.4% 50Meq/50ml SYR Vial IV ONE ×2 (01:06→05:12)
[2025-07-21 01:07] LABS: Magnesium 2.6 mg/dL (1.6-2.6)
[2025-07-21] MEDS: INSULIN LANTUS (GLARGINE) 1 /0.01ml (100units/ml) SC ONE (01:08)
[2025-07-21] MEDS: INSULIN DRIP 100 UNIT/100ML 100 ML IV SCH (01:11)
[2025-07-21 01:15] LABS: Nucleated Red Blood Cells % 1.0 %; Total Cells Counted 100.0 (100)
[2025-07-21] MEDS: ALBUTEROL SULF 2.5 MG/0.5ML(0.5%) NEB SOLN NEB ONE (01:20)
[2025-07-21] MEDS: FUROSEMIDE 20 MG/2 ML VIAL IV ONE (01:22)
--- NOTE | 2025-07-21 01:27 | ECG ---
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
[2025-07-21 01:32] LABS: Urine Protein, UAD TRACE (Negative)
[2025-07-21] MEDS: SODIUM CHLORIDE 0.9% 1,000 ML IV SCH ×3 (02:00→12:31)
[2025-07-21] MEDS: ACCU-CHEK COMFORT CURVE STRIP VI SCH ×2 (02:30→18:00)
--- NOTE | 2025-07-21 02:47 | ED.PDOC ---
History of Present Illness HPI Comments Patient brought in by EMS. EMS was called by patient's daughter, patient has been having shortness of breath nausea and vomiting and generalized weakness for the last two days. Daughter states that she knows the generalized weakness becoming worse and worse. Patient having increased respirations. She has c hecked blood sugar at home which read high. Upon transport DN, EMS states they glucose read high. Upon arrival, patient is present with nephew. Patient A&O x3 with translation tablet Chief Complaint: Hyperglycemia Time Seen by MD: 23:09 Primary Care Provider: UNKNOWN Reviewed Notes: Nurses Notes, Gasoline Attendant Notes Allergies: Coded Allergies: NO KNOWN ALLERGIES (Unverified , 10/08/21) Home Meds Active Scripts Vancomycin HCl (Vancomycin HCl) 125 Mg Cap, 125 MG PO QID for 10 Days, #40 CAP Prov:KO GARCIA [employer] INSPECTOR 02/24/25 Ascorbic Acid (VITAMIN C) 500 Mg Cap, 500 MG PO DAILY, #15 CAP Prov:NILO SCOTT MD 10/19/21 Zinc Sulfate (Zinc) 220 Mg Cap, 220 MG PO DAILY, #15 CAP Prov:NILO SCOTT MD 10/19/21 Reported Medications Clotrimazole (Clotrimazole) 1 % Cre, 1 APPLIC TOP Q12HR for 30 Days, APPLIC 10/23/21 Pseudoephedrine (Sm Nasal Decongestant) 120 Mg Tab, 60 MG PO TID, TAB 10/23/21 Omeprazole (Gnp Omeprazole) 20 Mg Tab, 2 TAB PO DAILY, #30 TAB 3 Refills PATIENT TAKES 40MG PRESCRIPTION DOSE 10/17/21 Buspirone HCl (Buspirone HCl) 10 Mg Tab, 10 MG PO BID, TAB 10/17/21 Insulin Glargine (Lantus) 100 Unit/Ml Inj, 33 UNIT SC HS, INJ 10/17/21 Gabapentin (Gabapentin) 100 Mg Cap, 100 MG PO BID for 30 Days, MG 10/17/21 Metformin Hydrochloride (Metformin Hcl) 500 Mg Tab, 1000 MG PO IBID for 30 Days, MG 10/17/21 Information Source: Patient, Emergency Med Personnel Mode of Arrival: Wheelchair Past Medical History PAST MEDICAL HISTORY: DM Surgical History: Denies all surgeries [employer]GER [employer] History: Denies all [employer]GER [employer] Hx Family History Family History: Family hx of DM Social History Smoker: Non-Smoker Alcohol: Denies ETOH Use Drugs: Denies Drug Use Lives In: Home Constitutional: reports: fatigue, malaise, weakness; denies: chills, diaphoresis, fever, sweats, others EENTM: denies: blurred vision, double vision, ear bleeding, ear discharge, ear drainage, ear pain, ear ringing, eye pain, eye redness, hearing loss, mouth pain, mouth swelling, nasal discharge, nose bleeding, nose congestion, nose pain, photophobia, tearing, throat pain, throat swelling, voice changes, others Respiratory: denies: cough, hemoptysis, orthopnea, SOB at rest, shortness of breath, SOB with excertion, stridor, wheezing, others Cardiovascular: denies: chest pain, dizzy spells, diaphoresis, Dyspnea on exertion, edema, irregular heart beat, left arm pain, lightheadedness, palpitations, PND, syncope, others Gastrointestinal: denies: abdomen distended, abdominal pain, blood streaked bowels, constipated, diarrhea, dysphagia, difficulty swallowing, hematemesis, melena, nausea, poor appetite, poor fluid intake, rectal bleeding, rectal pain, vomiting, others Genitourinary: denies: abnormal vagina bleeding, burning, dyspareunia, dysuria, flank pain, frequency, hematuria, incontinence, pain, , vagina discharge, urgency, others Neurological: denies: dizziness, fainting, headache, left sided numbness, left sided weakness, numbness, paresthesia, pre-existing deficit, right sided numbness, right sided weakness, seizure, speech problems, tingling, tremors, weakness, others Musculoskeletal: denies: back pain, gout, joint pain, joint swelling, muscle pain, muscle stiffness, neck pain, others Integumetry: denies: bruises, change in color, change in hair/nails, dryness, laceration, lesions, lumps, rash, wounds, others Allergic/Immunocompromised: denies: Difficulty Healing, Frequent Infections, Hives, Itching, others Physical Exam General Appearance: No Apparent Distress, Severe Distress HEENT: Normal ENT Inspection, Pharynx Normal, TMs Normal Neck: Non-Tender, Normal Inspection Respiratory: No Accessory Muscle Use, Normal Breath Sounds, Other (Tachypneic) Cardiovascular: No Edema, No Gallop, Normal Peripheral Pulses, Tachycardia Breast Exam: Deferred Gastrointestinal: No Organomegaly, Non Tender, No Pulsatile Mass, Normal Bowel Sounds, Soft Genitalia: Deferred Pelvic: Deferred Rectal: Deferred Extremities: No calf tenderness, Normal capillary refill, Normal inspection, Normal range of motion, Non-tender, No pedal edema Musculoskeletal : Apperance: Normal Neurologic: Alert, 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 Was a procedure done?: No Differential Dx Considerations may include: CVA, DKA, hyperglycemia, X-Ray, Labs, Meds, VS Vital Signs Date Time Temp Pulse Resp B/P (MAP) Pulse Ox O2 Delivery O2 Flow Rate FiO2 07/21/25 01:25 129 07/21/25 01:22 108/44 07/21/25 01:20 32 99 Nasal Cannula* 3 32 07/20/25 23:10 97.9 146 40 154/50 (84) 99 97.9 07/20/25 23:10 40 99 Room Air* 0 21 07/20/25 23:07 97.9 142 40 154/50 100 97.9 Lab Test 07/21/25 02:10 07/21/25 01:40 07/21/25 01:03 07/21/25 00:19 Range/Units Blood Gas Specimen Type Arterial Blood Gas Sample Site Left radial Blood Gas Patient Temperature 37.0 Arterial Blood Date Drawn [id number] Arterial Blood pH 7.101 *L 7.350-7.450 Arterial Blood Partial Pressure CO2 < 14.1 *L 32.0-45.0 mmHg Arterial Blood Partial Pressure O2 121.4 H 83.0-108.0 mmHg Arterial Blood Oxygen Saturation 97.3 94.0-98.0 % Arterial Blood Oxyhemoglobin 96.0 94.0-98.0 % Arterial Blood Carboxyhemoglobin 0.7 0.5-1.5 % Arterial Blood Methemoglobin 0.6 0.0-1.5 % Mikal Test Modified Blood Gas Total Hemoglobin 13.60 12.0-16.0 g/dL Blood Gas Modality Room air FiO2 % 21.0 Blood Gas Critical Value Read Back Yes Blood Gas Notified Whom Olena yusuf Blood Gas Notified Time [id number] Blood Gas Notified By Rt mauri cali Serum Osmolality Pending Lactic Acid Level 5.5 *H 0.4-2.0 mmol/L POC Glucose 575 *H 70-106 mg/dl Urine Color Light-yellow Yellow Urine Clarity Clear Clear Urine pH 5.0 5.0-9.0 Urine Specific [place] 1.021 1.001-1.035 Urine Protein Trace H Negative Urine Ketones 3+ H Negative Urine Blood Trace H Negative /uL Urine Nitrite Negative Negative Urine Bilirubin Negative Negative Urine Urobilinogen Normal Negative mg/dL Urine Leukocyte Esterase Negative Negative /uL Urine RBC 1 0 - 4 /hpf Urine Microscopic WBC 2 0-5 /HPF Urine Squamous Epithelial Cells Few <5 /hpf Urine Bacteria None seen None Seen /hpf Urine Hyaline Casts Few 0 - 2 /lpf Urine Mucus Few None Seen Urine Glucose 4+ H Normal mg/dL Test 07/20/25 23:40 07/20/25 23:39 07/20/25 23:05 07/20/25 23:04 Range/Units White Blood Count 14.3 H 4.4-10.8 10^3/uL Red Blood Count 5.22 H 4.0-5.20 10^6/uL Hemoglobin 14.3 12.2-16.2 g/dL Hematocrit 48.7 H 36.0-46.0 % Mean Corpuscular Volume 93.4 80.0-100.0 fL Mean Corpuscular Hemoglobin 27.3 L 28.0-32.0 pg Mean Corpuscular Hemoglobin Concent 29.3 L 32.0-36.0 g/dL Red Cell Distribution Width 15.9 H 11.8-14.3 % Platelet Count 253 140-450 10^3/uL Mean Platelet Volume 10.7 6.9-10.8 fL Neutrophils (%) (Auto) 37.0-80.0 % Lymphocytes (%) (Auto) 10.0-50.0 % Monocytes (%) (Auto) 0.0-12.0 % Basophils (%) (Auto) 0.0-2.0 % Neutrophils # (Auto) 1.6-8.6 10 ^3/uL Lymphocytes # (Auto) 0.4-5.4 10 ^3/uL Monocytes # (Auto) 0-1.3 10 ^3/uL Differential Total Cells Counted 100.0 100 Neutrophils % (Manual) 68 37.0-80.0 Band Neutrophils % (Manual) 7 Lymphocytes % (Manual) 12 10.0-50.0 Monocytes % (Manual) 9 0-12 Eosinophils % (Manual) 0 0-7 Basophils % (Manual) 0 0.0-2.0 Metamyelocytes % (manual) 2 Myelocytes % (Manual) 2 Promyelocytes % (Manual) 0 Blast Cells % (Manual) 0 Nucleated Red Blood Cells 1.0 % Reactive Lymphocytes 0 Platelet Estimate Adequate Large Platelets Few Sodium Level 135 L 136-145 mmol/L Potassium Level 6.4 *H 3.5-5.1 mmol/L Chloride Level 99 98-107 mmol/L Carbon Dioxide Level < 10 *L 20-31 mmol/L Anion Gap 26.75982 H 5-15 Blood Urea Nitrogen 24 H 9-23 mg/dL Creatinine 1.45 H 0.550-1.02 mg/dL Glomerular Filtration Rate Calc 41 >90 mL/min BUN/Creatinine Ratio 16.6 10.0-20.0 Serum Glucose 688 *H 74-106 mg/dL Lactic Acid Level 4.1 *H 0.4-2.0 mmol/L Calcium Level 9.1 8.7-10.4 mg/dL Phosphorus Level 8.0 H 2.4-5.1 mg/dL Magnesium Level 2.6 1.6-2.6 mg/dL Total Bilirubin 0.5 0.2-1.0 mg/dL Aspartate Amino Transferase (AST) 59 H 13-40 U/L Alanine Aminotransferase (ALT) 27 7-40 U/L Alkaline Phosphatase 136 H 46-116 U/L Total Protein 6.4 5.7-8.2 g/dL Albumin 3.8 3.2-4.8 g/dL Beta-Hydroxybutyric Acid > 4.500 H < 0.4 mmol/L Blood Gas Specimen Type Arterial Blood Gas Sample Site Left radial Blood Gas Patient Temperature 37.0 Arterial Blood Date Drawn [id number] Arterial Blood pH 6.997 *L 7.350-7.450 Arterial Blood Partial Pressure CO2 < 14.1 *L 32.0-45.0 mmHg Arterial Blood Partial Pressure O2 135.5 H 83.0-108.0 mmHg Arterial Blood Oxygen Saturation 97.4 94.0-98.0 % Arterial Blood Oxyhemoglobin 96.1 94.0-98.0 % Arterial Blood Carboxyhemoglobin 0.7 0.5-1.5 % Arterial Blood Methemoglobin 0.6 0.0-1.5 % Mikal Test Modified Blood Gas Total Hemoglobin 14.40 12.0-16.0 g/dL Blood Gas Modality Room air FiO2 % 21.0 Blood Gas Critical Value Read Back Yes Blood Gas Notified Whom Branch Operations Coordinator ryan yusuf Blood Gas Notified Time [id number] Blood Gas Notified By Rt mauri cali POC Glucose > 600 *H > 600 *H 70-106 mg/dl Current Medications Medications (Trade) Dose Ordered Sig/Lex Route Start Time Stop Time Status Last Admin Sodium Chloride 1,000 ml @ 1,000 mls/hr Q1H ONCE IV 07/20/25 23:15 07/21/25 00:14 DC 07/20/25 23:34 Ondansetron HCl (Zofran) 4 mg ONCE ONCE IV 07/20/25 23:15 07/20/25 23:18 DC 07/20/25 23:45 Insulin Human Regular (InsuLIN R) 10 units ONCE ONCE IV 07/20/25 23:15 07/20/25 23:18 DC 07/20/25 23:45 Sodium Bicarbonate 50 ml ONCE ONCE IV 07/21/25 00:45 07/21/25 00:46 DC 07/21/25 01:06 Sodium Chloride 1,000 ml @ 500 mls/hr Q2H IV 07/21/25 00:45 07/21/25 04:44 07/21/25 02:00 Insulin Human (Reg)/Sodium Chloride 100 ml @ 0.5 mls/hr Q24H IV 07/21/25 00:45 07/21/25 01:11 Insulin Glargine (Lantus) 15 units ONCE ONCE SC 07/21/25 00:45 07/21/25 00:46 DC 07/21/25 01:08 Albuterol (Ventolin Medneb) 20 mg ONCE ONCE NEB 07/21/25 01:00 07/21/25 01:04 DC 07/21/25 01:20 Furosemide (Lasix Injection) 20 mg ONCE ONCE IV 07/21/25 01:00 07/21/25 01:04 DC 07/21/25 01:22 X-Ray, Labs, Meds, VS Comment Patient will be admitted for decade better ketoacidosis Repeat ABG shows improvement in blood gas, patient's heart rate has decreased, patient does appear more alert than she was upon arrival Patient is still in critical condition, report was given to Dr. Pina Prior history reviewed by this provider Vital signs reviewed by this movie writer Time of 1ST Reevaluation: 02:50 Reevaluation 1ST: Unchanged Patient Education/Counseling: Diagnosis Family Education/Counseling: Diagnosis SEPSIS Sepsis Screen Date sepsis recognized/suspect: Jul 20, 2025 Time Sepsis recognized/suspect: 2309 Recent Procedure: No On Antibiotic Therapy: No Respiratory Rate >20: No Heart Rate >90: No Temp<36 C (96.8 F) or >38.3 C: No SBP <90 or MAP <65 mmHG: No New Acute Mental Status Change: No Is the patient on CPAP, BIPAP,: No Physician Orders Chest Portable (07/20/25 23:15) Blood Culture (07/20/25 23:24) Abg W/ Co-Ox (07/20/25 23:27) Insert Mike Catheter QSHIFT (07/20/25 23:28) Insulin Drip Protocol (07/21/25 ) Sodium Chloride 0.9% (07/21/25 00:45) Sodium Chloride 0.9% (07/21/25 04:45) Sodium Chloride 0.9% (07/21/25 06:45) Insulin Drip 100 Unit/100ml (Myxredlin 1 (07/21/25 00:45) Dextrose 50% Syringe (07/21/25 00:45) Glucose Blood (Accu-Chek Comfort Curve T (07/21/25 01:30) Osmolality, Serum (07/21/25 00:38) Basic Metabolic Panel (07/21/25 06:38) Basic Metabolic Panel (07/21/25 12:38) Basic Metabolic Panel (07/21/25 18:38) Neurological Assessment (07/21/25 00:38) Vs/Hemodynamics .PER UNIT PROTOCOL (07/21/25 00:38) Insulin Lantus (Glargine) (Lantus) (07/22/25 10:00) Abg W/ Co-Ox (07/21/25 02:01) Vital Signs Date Time Temp Pulse Resp B/P (MAP) Pulse Ox O2 Delivery O2 Flow Rate FiO2 07/21/25 01:25 129 07/21/25 01:22 108/44 07/21/25 01:20 32 99 Nasal Cannula* 3 32 07/20/25 23:10 97.9 146 40 154/50 (84) 99 97.9 07/20/25 23:10 40 99 Room Air* 0 21 07/20/25 23:07 97.9 142 40 154/50 100 97.9 Laboratory Tests Test 07/20/25 23:40 07/21/25 01:40 Lactic Acid Level 4.1 mmol/L (0.4-2.0) *H 5.5 mmol/L (0.4-2.0) *H White Blood Count 14.3 10^3/uL (4.4-10.8) H Medications Medications Dose Ordered Sig/Lex Route Start Time Stop Time Status Last Admin Dose Admin Albuterol 20 mg ONCE ONCE NEB 07/21/25 01:00 07/21/25 01:04 DC 07/21/25 01:20 Furosemide 20 mg ONCE ONCE IV 07/21/25 01:00 07/21/25 01:04 DC 07/21/25 01:22 Insulin Glargine 15 units ONCE ONCE SC 07/21/25 00:45 07/21/25 00:46 DC 07/21/25 01:08 Insulin Human (Reg)/Sodium Chloride 100 ml @ 0.5 mls/hr Q24H IV 07/21/25 00:45 07/21/25 01:11 Insulin Human Regular 10 units ONCE ONCE IV 07/20/25 23:15 07/20/25 23:18 DC 07/20/25 23:45 Ondansetron HCl 4 mg ONCE ONCE IV 07/20/25 23:15 07/20/25 23:18 DC 07/20/25 23:45 Sodium Bicarbonate 50 ml ONCE ONCE IV 07/21/25 00:45 07/21/25 00:46 DC 07/21/25 01:06 Sodium Chloride 1,000 ml @ 500 mls/hr Q2H IV 07/21/25 00:45 07/21/25 04:44 07/21/25 02:00 Sodium Chloride 1,000 ml @ 1,000 mls/hr Q1H ONCE IV 07/20/25 23:15 07/21/25 00:14 DC 07/20/25 23:34 Departure 1 Departure Time of Disposition: 02:50 Impression: Primary Impression: Other specified diabetes mellitus with ketoacidosis without coma Additional Impressions: Metabolic encephalopathy Generalized weakness Hypokalemia Disposition: ADMITTED INPATIENT Condition: Guarded Critical Care Note Critical Care Time?: Yes (30 min-critical care time only) Critical care comment: I have personally spent 35 minutes of critical care time, exclusive of the time spent on any procedures, in evaluation and management of this critically ill patient's conditions. I provided the following cleared of care treatment: Stabilization, evaluation of bloody nose, titration of insulin Stability Stability form required: No Heart Score Heart Score: Heart Score Response (Comments) Value History N/A 0 EKG N/A 0 Age N/A 0 Risk Factors N/A 0 Troponin N/A 0 Total 0 JET [id number] Jul 21, 2025 02:47
[2025-07-21] MEDS ORDERED: MORPHINE SULFATE INJ 2 MG/ml SYRG IV PRN (03:45)
[2025-07-21] MEDS ORDERED: ONDANSETRON HCL 4 MG/2 ML VIAL IV PRN (03:45)
[2025-07-21] MEDS ORDERED: NITROGLYCERIN 0.4 MG SL TAB SL PRN (03:45)
[2025-07-21 04:11] LABS: Base Excess -21.7 mmol/L (-2.0-3.0)
--- NOTE | 2025-07-21 04:37 | DVHHP2 ---
History of Present Illness Reason for Visit: Nausea and vomiting History of Present Illness 59-year-old female with a history of diabetes mellitus presents for evaluation of nausea and vomiting. Patient reports a two day history of nausea and vomiting with increased shortness for breath over the past one day. His blood sugars has been running high at home. On arrival blood sugar reading greater than 500. Past Medical History Diabetes mellitus Past Surgical History None Family History Diabetes mellitus Smoke: No ALCOHOL: none Drugs: None Lives: with Family Review of Systems Review of Systems Review of systems are currently negative otherwise addressed in HPI. Allergies: Coded Allergies: NO KNOWN ALLERGIES (Unverified , 10/08/21) Medications Current Medications Medications Dose Ordered Sig/Lex Route Start Time Stop Time Status Last Admin Dose Admin Sodium Chloride 1,000 ml @ 500 mls/hr Q2H IV 07/21/25 00:45 07/21/25 04:44 07/21/25 04:15 500 MLS/HR Sodium Chloride 1,000 ml @ 250 mls/hr Q4H IV 07/21/25 04:45 07/21/25 06:44 Sodium Chloride 1,000 ml @ 150 mls/hr Q6H40M IV 07/21/25 06:45 Insulin Human (Reg)/Sodium Chloride 100 ml @ 0.5 mls/hr Q24H IV 07/21/25 00:45 07/21/25 01:11 6 MLS/HR Dextrose 50 ml UD PRN IV 07/21/25 00:45 Diagnostic Test (Pha) 1 strip Q90MIN 07/21/25 01:30 07/21/25 04:00 1 STRIP Insulin Glargine 15 units DAILY SC 07/22/25 10:00 Ceftriaxone Sodium 50 ml @ 100 mls/hr DAILY@09 IV 07/21/25 03:45 07/21/25 04:15 100 MLS/HR Ondansetron HCl 4 mg Q4HP PRN IV 07/21/25 03:45 Nitroglycerin 0.4 mg Q5MINP PRN SL 07/21/25 03:45 Morphine Sulfate 2 mg Q30M PRN IV 07/21/25 03:45 Exam Vital Signs Vital Signs Date Time Temp Pulse Resp B/P (MAP) Pulse Ox O2 Delivery O2 Flow Rate FiO2 07/21/25 01:25 129 07/21/25 01:22 108/44 07/21/25 01:20 32 99 Nasal Cannula* 3 32 07/20/25 23:10 97.9 97.9 Exam Gen: 59-year-old female in mild distress Skin: Warm, dry, normal color and texture, no rash. HEENT: Normocephalic atraumatic, mucous membranes moist and pink. Neck: Cervical and supraclavicular nodes normal without enlargement, trachea is midline, thyroid gland is normal without masses. Pulmonary: Clear to auscultation and percussion bilaterally. Cardiac: Tachycardia Abdomen: Soft, nontender, nondistended, bowel sounds present all 4 quadrants, no guarding, no rigidity, no organomegaly. Extremities: No cyanosis, clubbing, no edema Neuro: Cranial nerves II through XII grossly intact, normal affect and speech, no focal motor deficits. Labs/Xrays ORDERING PHYSICIAN: JET YUSUF PROCEDURE(s): CXRP - CHEST PORTABLE REASON: aquiles ORDER NUMBER(s): [id number], ACCESSION NUMBER(s): [id number] CHEST RADIOGRAPH Indication: aquiles Technique: 1 view Comparison: XY CHEST PORTABLE on DOS: 02/23/25, XY CHEST PORTABLE on DOS: 02/22/25, XY CHEST PORTABLE on DOS: 02/20/25, XY CHEST XRAY 1 VIEW on DOS: 02/19/25, XY CHEST PORTABLE on DOS: 02/18/25 FINDINGS: Lines and Tubes: External leads. Lungs/Pleura: No focal consolidation, pleural effusion or pneumothorax. Cardiomediastinum: Unremarkable. Other: No acute osseous abnormality. IMPRESSION: 1. No acute cardiopulmonary abnormality. Labs Test 07/21/25 04:00 07/21/25 02:52 07/21/25 01:40 07/21/25 00:19 Range/Units Blood Gas Specimen Type Arterial Blood Gas Sample Site Left radial Blood Gas Patient Temperature 37.0 Arterial Blood Date Drawn Arterial Blood pH 7.118 *L 7.350-7.450 Arterial Blood Partial Pressure CO2 18.1 *L 32.0-45.0 mmHg Arterial Blood Partial Pressure O2 61.6 L 83.0-108.0 mmHg Arterial Blood HCO3 5.7 L 21.0-28.0 mmol/L Arterial Blood Oxygen Saturation 87.7 L 94.0-98.0 % Arterial Blood Base Excess -21.7 L -2.0-3.0 mmol/L Arterial Blood Oxyhemoglobin 86.8 L 94.0-98.0 % Arterial Blood Carboxyhemoglobin 0.3 L 0.5-1.5 % Arterial Blood Methemoglobin 0.7 0.0-1.5 % Mikal Test Modified Blood Gas Total Hemoglobin 13.10 12.0-16.0 g/dL Blood Gas Modality Room air FiO2 % 21.0 Blood Gas Critical Value Read Back Yes Blood Gas Notified Whom Therese cantu Blood Gas Notified Time [id number] Blood Gas Notified By Rt maikel perez POC Glucose 441 *H 70-106 mg/dl Serum Osmolality 356 H 278-298 mOsm/kg Lactic Acid Level 5.5 *H 0.4-2.0 mmol/L Urine Color Light-yellow Yellow Urine Clarity Clear Clear Urine pH 5.0 5.0-9.0 Urine Specific [place] 1.021 1.001-1.035 Urine Protein Trace H Negative Urine Ketones 3+ H Negative Urine Blood Trace H Negative /uL Urine Nitrite Negative Negative Urine Bilirubin Negative Negative Urine Urobilinogen Normal Negative mg/dL Urine Leukocyte Esterase Negative Negative /uL Urine RBC 1 0 - 4 /hpf Urine Microscopic WBC 2 0-5 /HPF Urine Squamous Epithelial Cells Few <5 /hpf Urine Bacteria None seen None Seen /hpf Urine Hyaline Casts Few 0 - 2 /lpf Urine Mucus Few None Seen Urine Glucose 4+ H Normal mg/dL Test 07/20/25 23:40 Range/Units White Blood Count 14.3 H 4.4-10.8 10^3/uL Red Blood Count 5.22 H 4.0-5.20 10^6/uL Hemoglobin 14.3 12.2-16.2 g/dL Hematocrit 48.7 H 36.0-46.0 % Mean Corpuscular Volume 93.4 80.0-100.0 fL Mean Corpuscular Hemoglobin 27.3 L 28.0-32.0 pg Mean Corpuscular Hemoglobin Concent 29.3 L 32.0-36.0 g/dL Red Cell Distribution Width 15.9 H 11.8-14.3 % Platelet Count 253 140-450 10^3/uL Mean Platelet Volume 10.7 6.9-10.8 fL Neutrophils (%) (Auto) 37.0-80.0 % Lymphocytes (%) (Auto) 10.0-50.0 % Monocytes (%) (Auto) 0.0-12.0 % Basophils (%) (Auto) 0.0-2.0 % Neutrophils # (Auto) 1.6-8.6 10 ^3/uL Lymphocytes # (Auto) 0.4-5.4 10 ^3/uL Monocytes # (Auto) 0-1.3 10 ^3/uL Differential Total Cells Counted 100.0 100 Neutrophils % (Manual) 68 37.0-80.0 Band Neutrophils % (Manual) 7 Lymphocytes % (Manual) 12 10.0-50.0 Monocytes % (Manual) 9 0-12 Eosinophils % (Manual) 0 0-7 Basophils % (Manual) 0 0.0-2.0 Metamyelocytes % (manual) 2 Myelocytes % (Manual) 2 Promyelocytes % (Manual) 0 Blast Cells % (Manual) 0 Nucleated Red Blood Cells 1.0 % Reactive Lymphocytes 0 Platelet Estimate Adequate Large Platelets Few Sodium Level 135 L 136-145 mmol/L Potassium Level 6.4 *H 3.5-5.1 mmol/L Chloride Level 99 98-107 mmol/L Carbon Dioxide Level < 10 *L 20-31 mmol/L Anion Gap 26.04518 H 5-15 Blood Urea Nitrogen 24 H 9-23 mg/dL Creatinine 1.45 H 0.550-1.02 mg/dL Glomerular Filtration Rate Calc 41 >90 mL/min BUN/Creatinine Ratio 16.6 10.0-20.0 Serum Glucose 688 *H 74-106 mg/dL Calcium Level 9.1 8.7-10.4 mg/dL Phosphorus Level 8.0 H 2.4-5.1 mg/dL Magnesium Level 2.6 1.6-2.6 mg/dL Total Bilirubin 0.5 0.2-1.0 mg/dL Aspartate Amino Transferase (AST) 59 H 13-40 U/L Alanine Aminotransferase (ALT) 27 7-40 U/L Alkaline Phosphatase 136 H 46-116 U/L Total Protein 6.4 5.7-8.2 g/dL Albumin 3.8 3.2-4.8 g/dL Beta-Hydroxybutyric Acid > 4.500 H < 0.4 mmol/L SEPSIS Sepsis Screen Date sepsis recognized/suspect: Jul 20, 2025 Time Sepsis recognized/suspect: 2309 Recent Procedure: No On Antibiotic Therapy: No Respiratory Rate >20: No Heart Rate >90: No Temp<36 C (96.8 F) or >38.3 C: No SBP <90 or MAP <65 mmHG: No New Acute Mental Status Change: No Is the patient on CPAP, BIPAP,: No Physician Orders Chest Portable (07/20/25 23:15) Blood Culture (07/20/25 23:24) Abg W/ Co-Ox (07/20/25 23:27) Insert Mike Catheter QSHIFT (07/20/25 23:28) Insulin Drip Protocol (07/21/25 ) Sodium Chloride 0.9% (07/21/25 00:45) Sodium Chloride 0.9% (07/21/25 04:45) Sodium Chloride 0.9% (07/21/25 06:45) Insulin Drip 100 Unit/100ml (Myxredlin 1 (07/21/25 00:45) Dextrose 50% Syringe (07/21/25 00:45) Glucose Blood (Accu-Chek Comfort Curve T (07/21/25 01:30) Basic Metabolic Panel (07/21/25 06:38) Basic Metabolic Panel (07/21/25 12:38) Basic Metabolic Panel (07/21/25 18:38) Neurological Assessment (07/21/25 00:38) Vs/Hemodynamics .PER UNIT PROTOCOL (07/21/25 00:38) Insulin Lantus (Glargine) (Lantus) (07/22/25 10:00) Abg W/ Co-Ox (07/21/25 02:01) Ct Ab Pel Wo Con-No Oral Or Iv (07/21/25 03:30) Ceftriaxone 1gm/50ml (Rocephin) (07/21/25 03:45) Admit (07/21/25 03:41) Ondansetron Hcl (Zofran) (07/21/25 03:45) Complete Blood Count (07/22/25 04:00) Comprehensive Metabolic Panel (07/22/25 04:00) Npo (Nothing By Mouth) Diet (07/21/25 Breakfast) Condition: Critical (07/21/25 03:41) Bedrest With Bathroom Privileg (07/21/25 03:41) Nitroglycerin Sublingual (Ntrostat Subli (07/21/25 03:45) Morphine Sulfate Injection (07/21/25 03:45) Stat Ekg For Chest Pain (07/21/25 03:41) Notify Md Of Changes From Base (07/21/25 03:41) Oil Gauger For 24 Hours (07/21/25 03:41) Emergency Dysrhythmia Protocol (07/21/25 03:41) Rhythm Strips Once Every Shift (07/21/25 03:41) Oxygen By Nasal Cannula (07/21/25 03:41) Abg W/ Co-Ox (07/21/25 03:45) Sodium Bicarb 50meq/50ml Vial (07/21/25 04:45) Vital Signs Date Time Temp Pulse Resp B/P (MAP) Pulse Ox O2 Delivery O2 Flow Rate FiO2 07/21/25 01:25 129 07/21/25 01:22 108/44 07/21/25 01:20 32 99 Nasal Cannula* 3 32 07/20/25 23:10 97.9 146 40 154/50 (84) 99 97.9 07/20/25 23:10 40 99 Room Air* 0 21 07/20/25 23:07 97.9 142 40 154/50 100 97.9 Laboratory Tests Test 07/20/25 23:40 07/21/25 01:40 Lactic Acid Level 4.1 mmol/L (0.4-2.0) *H 5.5 mmol/L (0.4-2.0) *H White Blood Count 14.3 10^3/uL (4.4-10.8) H Medications Medications Dose Ordered Sig/Lex Route Start Time Stop Time Status Last Admin Dose Admin Albuterol 20 mg ONCE ONCE NEB 07/21/25 01:00 07/21/25 01:04 DC 07/21/25 01:20 20 MG Ceftriaxone Sodium 50 ml @ 100 mls/hr DAILY@09 IV 07/21/25 03:45 07/21/25 04:15 100 MLS/HR Diagnostic Test (Pha) 1 strip Q90MIN 07/21/25 01:30 07/21/25 04:00 1 STRIP Furosemide 20 mg ONCE ONCE IV 07/21/25 01:00 07/21/25 01:04 DC 07/21/25 01:22 20 MG Insulin Glargine 15 units ONCE ONCE SC 07/21/25 00:45 07/21/25 00:46 DC 07/21/25 01:08 15 UNITS Insulin Human (Reg)/Sodium Chloride 100 ml @ 0.5 mls/hr Q24H IV 07/21/25 00:45 07/21/25 01:11 6 MLS/HR Insulin Human Regular 10 units ONCE ONCE IV 07/20/25 23:15 07/20/25 23:18 DC 07/20/25 23:45 10 UNITS Ondansetron HCl 4 mg ONCE ONCE IV 07/20/25 23:15 07/20/25 23:18 DC 07/20/25 23:45 4 MG Sodium Bicarbonate 50 ml ONCE ONCE IV 07/21/25 00:45 07/21/25 00:46 DC 07/21/25 01:06 50 ML Sodium Chloride 1,000 ml @ 500 mls/hr Q2H IV 07/21/25 00:45 07/21/25 04:44 07/21/25 04:15 500 MLS/HR Sodium Chloride 1,000 ml @ 1,000 mls/hr Q1H ONCE IV 07/20/25 23:15 07/21/25 00:14 DC 07/20/25 23:34 1,000 MLS/HR Assessment/Plan Assessment/Plan Assessment Diabetic ketoacidosis Acute kidney injury with hyperkalemia Plan Admit the patient to [facility] to the hospitalist DKA protocol CT abdomen and pelvis pending NPO Continue treatment per orders Total critical care time excluding procedures performed this 50 minutes Plan discussed with: Patient My Orders Orders - GAEL CANTU AGAJORGE Procedure Category Date Status Time Ct Ab Pel Wo Con-No CT 07/21/25 Taken Oral Or Iv 03:30 Ceftriaxone 1gm/50ml PHA 07/21/25 In Process (Rocephin) 03:45 Admit ADMIT 07/21/25 Transmitted 03:41 Ondansetron Hcl PHA 07/21/25 In Process (Zofran) 03:45 Complete Blood Count LAB 07/22/25 Verified 04:00 Comprehensive LAB 07/22/25 Verified Metabolic Panel 04:00 Npo (Nothing By DIET 07/21/25 Transmitted Mouth) Diet Breakfast Condition: Critical DISHA 07/21/25 In Process 03:41 Bedrest With Bathroom DISHA 07/21/25 In Process Privileg 03:41 Nitroglycerin PHA 07/21/25 In Process Sublingual (Ntrostat 03:45 Morphine Sulfate PHA 07/21/25 In Process Injection 03:45 Stat Ekg For Chest DISHA 07/21/25 In Process Pain 03:41 Notify Md Of Changes DISHA 07/21/25 In Process From Base 03:41 Oil Gauger For [facility] [place] 07/21/25 In Process 24 Hours 03:41 Emergency Dysrhythmia DISHA 07/21/25 In Process Protocol 03:41 Rhythm Strips Once DISHA 07/21/25 In Process Every Shift 03:41 Oxygen By Nasal RT 07/21/25 Transmitted Cannula 03:41 Abg W/ Co-Ox RT 07/21/25 Logged 03:45 Sodium Bicarb PHA 07/21/25 Verified 50meq/50ml Vial 04:45 Date of Service: Jul 21, 2025 Billing Provider: GAEL CANTU Common Visit Codes: [id number] CARE 30-74 MIN GAEL CANTU Jul 21, 2025 04:37
--- NOTE | 2025-07-21 04:43 | DVH ---
Exam: CT CT AB PEL WO CON-NO ORAL OR IV History: abd. pain Comparison Study: CT CT AB PEL WO CON-NO ORAL OR IV on DOS: 02/04/25. Technique: Multidetector spiral CT of the abdomen and pelvis was performed from lung bases to pubic s ymphysis. Imaging was performed without intravenous contrast. Coronal and sagittal multiplanar reform ats were obtained from the axial data set by the technologist. Radiation Dose : 1. Abdomen/Pelvis: CTDIvol 6.02 mGy, DLP 337.17 mGy*cm. Findings: Evaluation of vasculature and solid organs is limited due to lack of intravenous contrast use. Lung Bases: Lung bases are clear. Visualized portions of the heart and pericardium are unremarkable. Liver: The liver is normal in size. No focal lesions. Gallbladder and Biliary Tree: The gallbladder is unremarkable. No intrahepatic or extrahepatic bilia ry ductal dilatation. Spleen: Unremarkable Pancreas: The pancreas is grossly unremarkable. Adrenal Glands: Unremarkable Kidneys: Kidneys are unremarkable without calculi or hydronephrosis. GI tract: The stomach is grossly normal in appearance. No evidence of small bowel wall thickening or abnormal dilatation to suggest bowel obstruction. The colon is unremarkable. The appendix is not visu alized, however no inflammatory changes in the right lower quadrant to suggest acute appendicitis. Peritoneum/mesentery/retroperitoneum. No evidence of free intraperitoneal air. No ascites. No evidenc e of suspicious lymphadenopathy. Abdominal Wall: Unremarkable. Vasculature: The visualized abdominal aorta is normal in size and caliber. Evaluation of abdominal a nd pelvic vessels is limited due to lack of intravenous contrast. Urinary Bladder: Mike catheter in the urinary bladder. Pelvic Organs: Unremarkable Musculoskeletal: No aggressive focal bony lesions, acute fractures or dislocation. IMPRESSION: 1. No acute abdominal or pelvic findings.
[2025-07-21] MEDS: SODIUM BICARB 50mEq/50ml Vial 100 ML in SOD CHL 0.45% 1,000 ML IV ONE (05:13)
[2025-07-21 05:36] LABS: Potassium 4.9 mmol/L (3.5-5.1)
[2025-07-21 05:37] LABS: Anion Gap 26.00001 (5-15)
[2025-07-21] MEDS: SODIUM CHLORIDE 0.9% 500 ML IV ONE ×2 (05:40→13:12)
[2025-07-21 05:42] LABS: BUN/Creatinine Ratio 27.5 (10.0-20.0)
[2025-07-21 05:44] LABS: Blood Urea Nitrogen 36 mg/dL (9-23); Calcium 8.3 mg/dL (8.7-10.4); Chloride 110 mmol/L (98-107); Glucose 386 mg/dL (74-106); Sodium 146 mmol/L (136-145)
[2025-07-21 05:45] LABS: Carbon Dioxide < 10 mmol/L (20-31)
[2025-07-21] MEDS: PHENYLEPHRINE IV 250 ML IV SCH (06:15)
[2025-07-21 06:47] LABS: Base Excess -12.6 mmol/L (-2.0-3.0)
[2025-07-21] MEDS: DEXTROSE (50%) 50ML SYRG IV PRN (09:20)
[2025-07-21] MEDS: D5W/SOD CHL 0.45% 1,000 ML IV ONE (09:57)
[2025-07-21] MEDS: SODIUM BICARB 50mEq/50ml Vial 75 ML in D5W 5% 1,000 ML IV SCH (12:30)
[2025-07-21 12:57] LABS: Potassium 3.9 mmol/L (3.5-5.1)
--- NOTE | 2025-07-21 12:57 | DVH ---
CHEST RADIOGRAPH Indication: CENTRAL LINE PLACEMENT Technique: 1 view Comparison: XY CHEST XRAY 1 VIEW on DOS: 07/21/25, XY CHEST PORTABLE on DOS: 07/20/25, XY CHEST DEMARIO BLE on DOS: 02/23/25, XY CHEST PORTABLE on DOS: 02/22/25, XY CHEST PORTABLE on DOS: 02/20/25, XY CHEST PORT ABLE on DOS: 07/20/25 FINDINGS: Lines and Tubes: Right central catheter tip in the cavoatrial junction. Lungs/Pleura: No focal consolidation, pleural effusion or pneumothorax. Cardiomediastinum: Unremarkable. Other: No acute osseous abnormality. IMPRESSION: 1. No acute cardiopulmonary abnormality.
[2025-07-21 12:58] LABS: Anion Gap 18 (5-15)
[2025-07-21 13:00] LABS: Calcium 7.4 mg/dL (8.7-10.4); Carbon Dioxide 19 mmol/L (20-31); Chloride 111 mmol/L (98-107); Sodium 148 mmol/L (136-145)
--- NOTE | 2025-07-21 13:02 | DVH ---
EXAM: XY CHEST XRAY 1 VIEW Indication: CENTRAL LINE PLACEMENT Technique: Single frontal view of the chest was obtained Comparison: XY CHEST XRAY 1 VIEW on DOS: 07/21/25, XY CHEST PORTABLE on DOS: 07/20/25, XY CHEST DEMARIO BLE on DOS: 02/23/25, XY CHEST PORTABLE on DOS: 02/22/25, XY CHEST PORTABLE on DOS: 02/20/25 FINDINGS: Lines and Tubes: Right central venous catheter tip projects over the right atrium. Lungs: No focal consolidation. Pleura: No effusion. No pneumothorax. Cardiomediastinal contours: Unremarkable. Atherosclerotic vascular calcifications of the thoracic ao rta are noted. Bones: No acute osseous abnormality. IMPRESSION: No acute cardiopulmonary disease.
[2025-07-21 13:03] LABS: BUN/Creatinine Ratio 26.2 (10.0-20.0)
[2025-07-21 13:06] LABS: Blood Urea Nitrogen 27 mg/dL (9-23); Glucose 124 mg/dL (74-106)
[2025-07-21] MEDS ORDERED: DEXTROSE (50%) 50ML SYRG IV PRN (17:45)
[2025-07-21] MEDS: InsuLIN REG 1unit/0.01ml Soln (100units/ml) SC SCH (18:00)
[2025-07-21 18:53] LABS: Chloride 107 mmol/L (98-107); Potassium 3.6 mmol/L (3.5-5.1); Sodium 144 mmol/L (136-145)
[2025-07-21 18:54] LABS: Anion Gap 11 (5-15); Carbon Dioxide 26 mmol/L (20-31)
[2025-07-21 18:59] LABS: BUN/Creatinine Ratio 23.4 (10.0-20.0); Blood Urea Nitrogen 18 mg/dL (9-23)
[2025-07-21 19:01] LABS: Calcium 7.1 mg/dL (8.7-10.4); Glucose 74 mg/dL (74-106)
[2025-07-22] VITALS (17 sets, daily range): BP systolic 92–119; BP diastolic 47–60; PULSE 86–110; RESP 11–20; TEMP 98.1–98.7; O2SAT 94–100
[2025-07-22 04:07] LABS: Hematocrit 30.2 % (36.0-46.0); Hemoglobin 10.3 g/dL (12.2-16.2); Mean Corpuscular Hemoglobin 27.7 pg (28.0-32.0); Mean Corpuscular Volume 81.2 fL (80.0-100.0); Nucleated Red Blood Cells % 0.2 %
[2025-07-22 04:41] LABS: Alanine Aminotransferase 13 U/L (7-40); Alkaline Phosphatase 71 U/L (46-116); Anion Gap 8 (5-15); BUN/Creatinine Ratio 13.6 (10.0-20.0); Chloride 101 mmol/L (98-107); Sodium 140 mmol/L (136-145)
[2025-07-22 04:42] LABS: Bilirubin, Total 0.4 mg/dL (0.2-1.0)
[2025-07-22 04:43] LABS: Albumin 2.4 g/dL (3.2-4.8); Blood Urea Nitrogen 9 mg/dL (9-23); Calcium 7.5 mg/dL (8.7-10.4); Carbon Dioxide 31 mmol/L (20-31); Glucose 161 mg/dL (74-106); Potassium 3.3 mmol/L (3.5-5.1); Total Protein 4.2 g/dL (5.7-8.2)
[2025-07-22] MEDS ORDERED: INSULIN LANTUS (GLARGINE) 1 /0.01ml (100units/ml) SC SCH (10:00)
--- NOTE | 2025-07-22 11:12 | DVHPN2 ---
Subjective Patient encephalopathic Reviewed: Care Plan, H&P, Labs Changes from previous H/P or p: No Changes General: Per HPI Objective Vitals Vital Signs Date Time Temp Pulse Resp B/P (MAP) Pulse Ox O2 Delivery O2 Flow Rate FiO2 07/21/25 09:00 107/48 07/21/25 07:30 105 20 99 Room Air* 0 21 07/21/25 07:30 98.8 98.8 Intake/Output Intake and Output 07/21/25 07:00 Intake Total 3680 ml Balance 3680 ml Intake IV Total 3680 ml General Appearance: Alert, Oriented X3, Cooperative, moderate distress, Other (Cachectic) HEENT: Atraumatic, PERRLA Lungs: Clear to auscultation, Normal air movement Cardiovascular: Normal S1, Normal S2 Abdomen: Normal bowel sounds, Soft, No tenderness, No hepatospenomegaly Musculoskeletal: Normal sensory function, Normal motor function Skin: Dry, Intact Psych/Mental Status: Other (Withdrawn) Medications Current Medications Medications Dose Ordered Sig/Lex Route Start Time Stop Time Status Last Admin Dose Admin Sodium Chloride 1,000 ml @ 150 mls/hr Q6H40M IV 07/21/25 06:45 Insulin Human (Reg)/Sodium Chloride 100 ml @ 0.5 mls/hr Q24H IV 07/21/25 00:45 07/21/25 01:11 6 MLS/HR Dextrose 50 ml UD PRN IV 07/21/25 00:45 07/21/25 09:20 50 ML Diagnostic Test (Pha) 1 strip Q90MIN 07/21/25 01:30 07/21/25 12:00 1 STRIP Insulin Glargine 15 units DAILY SC 07/22/25 10:00 Ceftriaxone Sodium 50 ml @ 100 mls/hr DAILY@09 IV 07/21/25 03:45 07/21/25 10:16 100 MLS/HR Ondansetron HCl 4 mg Q4HP PRN IV 07/21/25 03:45 Nitroglycerin 0.4 mg Q5MINP PRN SL 07/21/25 03:45 Morphine Sulfate 2 mg Q30M PRN IV 07/21/25 03:45 Phenylephrine HCl 250 ml @ 30 mls/hr Q8H20M IV 07/21/25 06:00 07/21/25 06:15 30 MLS/HR Sodium Bicarbonate 75 ml/ Dextrose 1,075 ml @ 100 mls/hr [id number] IV 07/21/25 11:00 07/21/25 12:30 100 MLS/HR Laboratory Results Laboratory Tests 07/20/25 23:40 Chemistry Test 07/20/25 23:40 07/21/25 04:51 07/21/25 12:21 Albumin 3.8 g/dL (3.2-4.8) Calcium Level 9.1 mg/dL (8.7-10.4) 8.3 mg/dL (8.7-10.4) L Pending Magnesium Level 2.6 mg/dL (1.6-2.6) Phosphorus Level 8.0 mg/dL (2.4-5.1) H Total Protein 6.4 g/dL (5.7-8.2) LFT Test 07/20/25 23:40 Alanine Aminotransferase (ALT) 27 U/L (7-40) Alkaline Phosphatase 136 U/L (46-116) H Aspartate Amino Transferase (AST) 59 U/L (13-40) H Total Bilirubin 0.5 mg/dL (0.2-1.0) Urinalysis Test 07/21/25 00:19 Urine Color Light-yellow (Yellow) Urine Clarity Clear (Clear) Urine pH 5.0 (5.0-9.0) Urine Specific [place] 1.021 (1.001-1.035) Urine Protein Trace (Negative) H Urine Ketones 3+ (Negative) H Urine Blood Trace /uL (Negative) H Urine Nitrite Negative (Negative) Urine Bilirubin Negative (Negative) Urine Urobilinogen Normal mg/dL (Negative) Urine Leukocyte Esterase Negative /uL (Negative) Urine RBC 1 /hpf (0 - 4) Urine Microscopic WBC 2 /HPF (0-5) Urine Squamous Epithelial Cells Few /hpf (<5) Urine Bacteria None seen /hpf (None Seen) Urine Hyaline Casts Few /lpf (0 - 2) Urine Mucus Few (None Seen) Urine Glucose 4+ mg/dL (Normal) H Blood Gas Results Test 07/20/25 23:39 07/21/25 02:10 07/21/25 04:00 07/21/25 06:41 Arterial Blood pH 6.997 (7.350-7.450) 7.101 (7.350-7.450) 7.118 (7.350-7.450) 7.328 (7.350-7.450) FiO2 % 21.0 21.0 21.0 21.0 Labs and/or images reviewed: Labs reviewed by me, Image(s) reviewed by me Assessment/Plan Assessment/Plan Impression: -metabolic encephalopathy -diabetic ketoacidosis -leukocytosis, rule out sepsis -acute kidney injury -hypovolemic shock Plan: -impression: -start sodium bicarbonate infusion: D5 W with one amp of sodium bicarbonate at 100 mL an hour -normal saline 500 bolus -continue empiric antibiotic therapy -wallace cultures, if noted diarrhea, send for C diff -continue phenylephrine drip to keep map greater than 65 mm of mercury -insulin drip, hold for blood sugar less than 150. Stop Lantus. -[facility] Critical care time spent with patient discussing and formulating plan of care: 40 minutes. This does not include time spent performing procedures. This medical document was created using an electronic medical record system with [employer] dictation system. Although this document has been carefully reviewed, there may still be some phonetic and typographical errors. These areas are purely typographical due to imperfections of the software programs, and do not reflect any compromise in the patient's medical care. Plan discussed with: Patient, Other (RN) My Orders Orders - KO GARCIA NP Procedure Category Date Status Time D5w 5% (Dextrose 5%) PHA 07/21/25 In Process W/Sodium Bicarb 50m 11:00 NS PHA 07/21/25 Transmitted 13:00 Date of Service: Jul 21, 2025 Billing Provider: KO GARCIA NP Common Visit Codes: [id number] CARE 30-74 MIN KO GARCIA NP Jul 21, 2025 12:55
[2025-07-22] MEDS ORDERED: DEXTROSE (50%) 50ML SYRG IV PRN (15:00)
--- NOTE | 2025-07-22 15:05 | DVHPN2 ---
Subjective Patient denies any symptoms Reviewed: Care Plan, H&P, Labs Changes from previous H/P or p: Changes General: Per HPI Objective Vitals Vital Signs Date Time Temp Pulse Resp B/P (MAP) Pulse Ox O2 Delivery O2 Flow Rate FiO2 07/22/25 13:00 98.4 102 17 119/60 (79) 96 98.4 07/22/25 08:00 Room Air* 0 21 Intake/Output Intake and Output 07/22/25 07:00 Intake Total 2189.75 ml Output Total 2785 ml Balance -595.25 ml Intake Oral 240 ml IV Total 1949.75 ml Output Urine Total 2785 ml Stool Total 0 ml General Appearance: Alert, Oriented X3, Cooperative, moderate distress, Other (Cachectic) HEENT: Atraumatic, PERRLA Lungs: Clear to auscultation, Normal air movement Cardiovascular: Normal S1, Normal S2 Abdomen: Normal bowel sounds, Soft, No tenderness, No hepatospenomegaly Musculoskeletal: Normal sensory function, Normal motor function Skin: Dry, Intact Psych/Mental Status: Other (Withdrawn) Medications Current Medications Medications Dose Ordered Sig/Lex Route Start Time Stop Time Status Last Admin Dose Admin Sodium Chloride 1,000 ml @ 150 mls/hr Q6H40M IV 07/21/25 06:45 Ceftriaxone Sodium 50 ml @ 100 mls/hr DAILY@09 IV 07/21/25 03:45 07/22/25 08:41 100 MLS/HR Ondansetron HCl 4 mg Q4HP PRN IV 07/21/25 03:45 Nitroglycerin 0.4 mg Q5MINP PRN SL 07/21/25 03:45 Morphine Sulfate 2 mg Q30M PRN IV 07/21/25 03:45 Magnesium Sulfate/ Dextrose 100 ml @ 100 mls/hr Q1HR IV 07/22/25 15:00 07/22/25 16:59 UNV Insulin Glargine 15 units HS SC 07/22/25 22:00 UNV Diagnostic Test (Pha) 1 strip ACHS 07/22/25 17:00 UNV Insulin Human Regular ACHS SC 07/22/25 17:00 UNV Dextrose 50 ml UD PRN IV 07/22/25 15:00 UNV Laboratory Results Laboratory Tests 07/22/25 03:35 Chemistry Test 07/21/25 18:21 07/22/25 03:35 Calcium Level 7.1 mg/dL (8.7-10.4) L 7.5 mg/dL (8.7-10.4) L Albumin 2.4 g/dL (3.2-4.8) L Magnesium Level 1.5 mg/dL (1.6-2.6) #L Total Protein 4.2 g/dL (5.7-8.2) L LFT Test 07/22/25 03:35 Alanine Aminotransferase (ALT) 13 U/L (7-40) Alkaline Phosphatase 71 U/L (46-116) Aspartate Amino Transferase (AST) 27 U/L (13-40) Total Bilirubin 0.4 mg/dL (0.2-1.0) Urinalysis Test 07/21/25 00:19 Urine Color Light-yellow (Yellow) Urine Clarity Clear (Clear) Urine pH 5.0 (5.0-9.0) Urine Specific [place] 1.021 (1.001-1.035) Urine Protein Trace (Negative) H Urine Ketones 3+ (Negative) H Urine Blood Trace /uL (Negative) H Urine Nitrite Negative (Negative) Urine Bilirubin Negative (Negative) Urine Urobilinogen Normal mg/dL (Negative) Urine Leukocyte Esterase Negative /uL (Negative) Urine RBC 1 /hpf (0 - 4) Urine Microscopic WBC 2 /HPF (0-5) Urine Squamous Epithelial Cells Few /hpf (<5) Urine Bacteria None seen /hpf (None Seen) Urine Hyaline Casts Few /lpf (0 - 2) Urine Mucus Few (None Seen) Urine Glucose 4+ mg/dL (Normal) H Microbiology Microbiology Date/Time Source Procedure Growth Status 07/21/25 00:11 Blood Blood Culture - Preliminary NO GROWTH AFTER 24 HOURS OF INCUBATION. Resulted Labs and/or images reviewed: Labs reviewed by me, Image(s) reviewed by me Assessment/Plan Assessment/Plan Impression: -metabolic encephalopathy -diabetic ketoacidosis -leukocytosis, rule out sepsis -acute kidney injury -hypovolemic shock Plan: Events: Patient's DKA has resolved. White blood cell count improved. -stop sodium bicarbonate drip -potassium and magnesium replete -start Lantus, regular insulin sliding scale -continue empiric antibiotic therapy -wallace cultures, if noted diarrhea, send for C diff -repeat labs in a.m. Total time spent with patient discussing and formulating plan of care: 35 minutes. This medical document was created using an electronic medical record system with [employer] dictation system. Although this document has been carefully reviewed, there may still be some phonetic and typographical errors. These areas are purely typographical due to imperfections of the software programs, and do not reflect any compromise in the patient's medical care. Plan discussed with: Patient, Other (RN) My Orders Orders - KO GARCIA NP Procedure Category Date Status Time Mrsa Screen SERGE 07/21/25 In Process 18:39 Sod Chl 0.9%/ Kcl PHA 07/22/25 Logged 40meq 15:00 Magnesium Sulfate PHA 07/22/25 Logged 1gm/100ml 15:00 Insulin Lantus PHA 07/22/25 Logged (Glargine) (Lantus) 22:00 Glucose Blood PHA 07/22/25 Logged (Accu-Chek Comfort 17:00 Insulin R (Human) PHA 07/22/25 Logged (Insulin R) 17:00 Dextrose 50% Syringe PHA 07/22/25 Logged 15:00 Basic Metabolic Panel LAB 07/23/25 Verified 04:00 Complete Blood Count LAB 07/23/25 Verified 04:00 Date of Service: Jul 22, 2025 Billing Provider: KO GARCIA NP Common Visit Codes: [id number] INP/OBS CARE(HIGH) KO GARCIA NP Jul 22, 2025 15:05
[2025-07-22] MEDS: SOD CHL 0.9%/ KCL 40MEQ 1,000 ML IV ONE (15:23)
[2025-07-22] MEDS: MAGNESIUM SULFATE 1GM/100ML 100 ML IV SCH (15:23)
[2025-07-22] MEDS: ACCU-CHEK COMFORT CURVE STRIP VI SCH (17:00)
[2025-07-22] MEDS: InsuLIN REG 1unit/0.01ml Soln (100units/ml) SC SCH (17:32)
[2025-07-22] MEDS: MUPIROCIN 2% OINT 15gm or 22gm FOR MRSA NARES EACHNOSTRI SCH (21:59)
[2025-07-22] MEDS: INSULIN LANTUS (GLARGINE) 1 /0.01ml (100units/ml) SC SCH (22:04)
[2025-07-23] VITALS (8 sets, daily range): BP systolic 105–117; BP diastolic 62–73; PULSE 69–111; RESP 17–18; TEMP 97.4–99.7; O2SAT 96–98
[2025-07-23 05:08] LABS: Hematocrit 31.7 % (36.0-46.0); Hemoglobin 10.9 g/dL (12.2-16.2); Mean Corpuscular Hemoglobin 27.7 pg (28.0-32.0); Mean Corpuscular Volume 80.8 fL (80.0-100.0)
[2025-07-23 05:17] LABS: Chloride 103 mmol/L (98-107)
[2025-07-23 05:18] LABS: Anion Gap 7 (5-15)
[2025-07-23 05:22] LABS: Calcium 7.8 mg/dL (8.7-10.4); Carbon Dioxide 35 mmol/L (20-31); Potassium 3.1 mmol/L (3.5-5.1); Sodium 145 mmol/L (136-145)
[2025-07-23 05:23] LABS: BUN/Creatinine Ratio 14.0 (10.0-20.0); Blood Urea Nitrogen 8 mg/dL (9-23); Glucose 71 mg/dL (74-106)
[2025-07-23 05:53] LABS: Total Cells Counted 100.0 (100)
[2025-07-23] MEDS: POTASSIUM CHLORIDE 40 MEQ, LIDOCAINE 1% (LOCAL ANESTH.) 4 ML in SODIUM CHL 0.9% 250 ML IV ONE (11:45)
[2025-07-23] MEDS: POTASSIUM CHL 20 Meq TABLET PO ONE (13:01)
--- NOTE | 2025-07-23 19:16 | DVHPN2 ---
Subjective In bed confused Reviewed: Care Plan, H&P, Labs Changes from previous H/P or p: No Changes General: Per HPI Objective Vitals Vital Signs Date Time Temp Pulse Resp B/P (MAP) Pulse Ox O2 Delivery O2 Flow Rate FiO2 07/23/25 17:00 99.7 100 18 115/70 (85) 97 99.7 07/23/25 08:00 Room Air* 0 21 Intake/Output Intake and Output 07/23/25 05:00 Intake Total 2630 ml Output Total 5800 ml Balance -3170 ml Intake Oral 2580 ml IV Total 50 ml Output Urine Total 5800 ml General Appearance: Alert, Cooperative, moderate distress, Other (Cachectic) HEENT: Atraumatic, PERRLA Lungs: Clear to auscultation, Normal air movement Cardiovascular: Normal S1, Normal S2 Abdomen: Normal bowel sounds, Soft, No tenderness, No hepatospenomegaly Musculoskeletal: Normal sensory function, Normal motor function Skin: Dry, Intact Psych/Mental Status: Other (Withdrawn) Medications Current Medications Medications Dose Ordered Sig/Lex Route Start Time Stop Time Status Last Admin Dose Admin Sodium Chloride 1,000 ml @ 150 mls/hr Q6H40M IV 07/21/25 06:45 07/23/25 18:14 150 MLS/HR Ceftriaxone Sodium 50 ml @ 100 mls/hr DAILY@09 IV 07/21/25 03:45 07/23/25 08:39 100 MLS/HR Ondansetron HCl 4 mg Q4HP PRN IV 07/21/25 03:45 Nitroglycerin 0.4 mg Q5MINP PRN SL 07/21/25 03:45 Morphine Sulfate 2 mg Q30M PRN IV 07/21/25 03:45 Insulin Glargine 15 units HS SC 07/22/25 22:00 07/22/25 22:04 15 UNITS Diagnostic Test (Pha) 1 strip ACHS 07/22/25 17:00 07/23/25 17:07 1 STRIP Insulin Human Regular ACHS SC 07/22/25 17:00 07/23/25 17:11 4 UNITS Dextrose 50 ml UD PRN IV 07/22/25 15:00 Mupirocin 1 applic BID EACHNOSTRI 07/22/25 22:00 07/27/25 21:59 07/23/25 09:27 1 APPLIC Laboratory Results Laboratory Tests 07/23/25 04:25 Chemistry Test 07/23/25 04:25 Calcium Level 7.8 mg/dL (8.7-10.4) L Urinalysis Test 07/21/25 00:19 Urine Color Light-yellow (Yellow) Urine Clarity Clear (Clear) Urine pH 5.0 (5.0-9.0) Urine Specific [place] 1.021 (1.001-1.035) Urine Protein Trace (Negative) H Urine Ketones 3+ (Negative) H Urine Blood Trace /uL (Negative) H Urine Nitrite Negative (Negative) Urine Bilirubin Negative (Negative) Urine Urobilinogen Normal mg/dL (Negative) Urine Leukocyte Esterase Negative /uL (Negative) Urine RBC 1 /hpf (0 - 4) Urine Microscopic WBC 2 /HPF (0-5) Urine Squamous Epithelial Cells Few /hpf (<5) Urine Bacteria None seen /hpf (None Seen) Urine Hyaline Casts Few /lpf (0 - 2) Urine Mucus Few (None Seen) Urine Glucose 4+ mg/dL (Normal) H Microbiology Microbiology Date/Time Source Procedure Growth Status 07/21/25 18:48 Nose MRSA Screen - Final Methicillin Resistant S.aureus Complete 07/21/25 00:11 Blood Blood Culture - Preliminary NO GROWTH AFTER 48 HOURS OF INCUBATION. Resulted Assessment/Plan Assessment/Plan Impression: -metabolic encephalopathy -diabetic ketoacidosis -leukocytosis, rule out sepsis -acute kidney injury -hypovolemic shock Plan: Events: Patient's DKA has resolved. White blood cell count improved. -stop sodium bicarbonate drip -potassium and magnesium replete -start Lantus, regular insulin sliding scale -continue empiric antibiotic therapy -wallace cultures, if noted diarrhea, send for C diff -repeat labs in a.m. Total time spent with patient discussing and formulating plan of care: 35 minutes. Plan discussed with: Patient Date of Service: Jul 23, 2025 Billing Provider: JEAN BIRD MD Common Visit Codes: [id number] INP/OBS CARE(HIGH) JEAN BIRD MD Jul 23, 2025 19:16
[2025-07-24] VITALS (8 sets, daily range): BP systolic 101–122; BP diastolic 53–70; PULSE 63–115; RESP 16–19; TEMP 97.5–99; O2SAT 91–98
--- NOTE | 2025-07-24 18:10 | DVHPN2 ---
Subjective In bed confused Reviewed: Care Plan, H&P, Labs Changes from previous H/P or p: No Changes General: Per HPI Objective Vitals Vital Signs Date Time Temp Pulse Resp B/P (MAP) Pulse Ox O2 Delivery O2 Flow Rate FiO2 07/24/25 16:30 98.7 111 16 118/53 (74) 91 98.7 07/24/25 08:00 Room Air* 0 21 Intake/Output Intake and Output 07/24/25 05:00 Intake Total 3550 ml Output Total 7100 ml Balance -3550 ml Intake Oral 2200 ml IV Total 1350 ml Output Urine Total 7100 ml # Bowel Movements 6 General Appearance: Alert, Cooperative, moderate distress, Other (Cachectic) HEENT: Atraumatic, PERRLA Lungs: Clear to auscultation, Normal air movement Cardiovascular: Normal S1, Normal S2 Abdomen: Normal bowel sounds, Soft, No tenderness, No hepatospenomegaly Musculoskeletal: Normal sensory function, Normal motor function Skin: Dry, Intact Psych/Mental Status: Other (Withdrawn) Medications Current Medications Medications Dose Ordered Sig/Lex Route Start Time Stop Time Status Last Admin Dose Admin Sodium Chloride 1,000 ml @ 150 mls/hr Q6H40M IV 07/21/25 06:45 07/24/25 13:28 150 MLS/HR Ceftriaxone Sodium 50 ml @ 100 mls/hr DAILY@09 IV 07/21/25 03:45 07/24/25 08:37 100 MLS/HR Ondansetron HCl 4 mg Q4HP PRN IV 07/21/25 03:45 Nitroglycerin 0.4 mg Q5MINP PRN SL 07/21/25 03:45 Morphine Sulfate 2 mg Q30M PRN IV 07/21/25 03:45 Insulin Glargine 15 units HS SC 07/22/25 22:00 07/23/25 21:56 15 UNITS Diagnostic Test (Pha) 1 strip ACHS 07/22/25 17:00 07/24/25 16:37 1 STRIP Insulin Human Regular ACHS SC 07/22/25 17:00 07/24/25 16:41 4 UNITS Dextrose 50 ml UD PRN IV 07/22/25 15:00 Mupirocin 1 applic BID EACHNOSTRI 07/22/25 22:00 07/27/25 21:59 07/24/25 08:38 1 APPLIC Laboratory Results Laboratory Tests 07/23/25 04:25 Urinalysis Test 07/21/25 00:19 Urine Color Light-yellow (Yellow) Urine Clarity Clear (Clear) Urine pH 5.0 (5.0-9.0) Urine Specific [place] 1.021 (1.001-1.035) Urine Protein Trace (Negative) H Urine Ketones 3+ (Negative) H Urine Blood Trace /uL (Negative) H Urine Nitrite Negative (Negative) Urine Bilirubin Negative (Negative) Urine Urobilinogen Normal mg/dL (Negative) Urine Leukocyte Esterase Negative /uL (Negative) Urine RBC 1 /hpf (0 - 4) Urine Microscopic WBC 2 /HPF (0-5) Urine Squamous Epithelial Cells Few /hpf (<5) Urine Bacteria None seen /hpf (None Seen) Urine Hyaline Casts Few /lpf (0 - 2) Urine Mucus Few (None Seen) Urine Glucose 4+ mg/dL (Normal) H Microbiology Microbiology Date/Time Source Procedure Growth Status 07/21/25 18:48 Nose MRSA Screen - Final Methicillin Resistant S.aureus Complete 07/21/25 00:11 Blood Blood Culture - Preliminary NO GROWTH AFTER 72 HOURS OF INCUBATION. Resulted Assessment/Plan Assessment/Plan Impression: -metabolic encephalopathy -diabetic ketoacidosis -leukocytosis, rule out sepsis -acute kidney injury -hypovolemic shock Plan: Events: Patient's DKA has resolved. White blood cell count improved. -potassium and magnesium replete -start Lantus, regular insulin sliding scale -continue empiric antibiotic therapy -wallace cultures, if noted diarrhea, send for C diff -repeat labs in a.m. Total time spent with patient discussing and formulating plan of care: 35 minutes. Plan discussed with: Patient Date of Service: Jul 24, 2025 Billing Provider: JEAN BIRD MD Common Visit Codes: [id number] INP/OBS CARE(HIGH) JEAN BIRD MD Jul 24, 2025 18:10
[2025-07-25 01:00] VITALS: BP 124/72; PULSE 102; RESP 19; TEMP 99.1; O2SAT 97
[2025-07-25 05:00] VITALS: BP 113/70; PULSE 111; RESP 19; TEMP 98.8; O2SAT 92
[2025-07-25 07:50] LABS: Anion Gap 11 (5-15); Carbon Dioxide 28 mmol/L (20-31); Potassium 3.6 mmol/L (3.5-5.1)
[2025-07-25 07:51] LABS: Calcium 7.8 mg/dL (8.7-10.4); Chloride 107 mmol/L (98-107); Sodium 146 mmol/L (136-145)
[2025-07-25 07:56] LABS: BUN/Creatinine Ratio 18.0 (10.0-20.0); Blood Urea Nitrogen 9 mg/dL (9-23); Glucose 55 mg/dL (74-106)
[2025-07-25 08:00] VITALS: PULSE 114
[2025-07-25 09:00] VITALS: BP 126/76; PULSE 102; RESP 16; TEMP 99.1; O2SAT 96
--- NOTE | 2025-07-25 10:03 | DVHDS2 ---
Discharge Summary Date of Admission Jul 21, 2025 at 03:41 Date of Discharge: Jul 25, 2025 Admitting Diagnosis Diabetic Ketoacidosis Labs/Diagnostic Data: Laboratory Results Test 07/25/25 06:08 07/25/25 04:40 07/23/25 04:25 07/22/25 03:35 POC Glucose 73 mg/dl (70-106) Sodium Level 146 mmol/L (136-145) Potassium Level 3.6 mmol/L (3.5-5.1) Chloride Level 107 mmol/L (98-107) Carbon Dioxide Level 28 mmol/L (20-31) Anion Gap 11 (5-15) Blood Urea Nitrogen 9 mg/dL (9-23) Creatinine 0.50 mg/dL (0.550-1.02) Glomerular Filtration Rate Calc 107 mL/min (>90) BUN/Creatinine Ratio 18.0 (10.0-20.0) Serum Glucose 55 mg/dL (74-106) Calcium Level 7.8 mg/dL (8.7-10.4) White Blood Count 3.7 10^3/uL (4.4-10.8) Red Blood Count 3.92 10^6/uL (4.0-5.20) Hemoglobin 10.9 g/dL (12.2-16.2) Hematocrit 31.7 % (36.0-46.0) Mean Corpuscular Volume 80.8 fL (80.0-100.0) Mean Corpuscular Hemoglobin 27.7 pg (28.0-32.0) Mean Corpuscular Hemoglobin Concent 34.2 g/dL (32.0-36.0) Red Cell Distribution Width 14.8 % (11.8-14.3) Platelet Count 169 10^3/uL (140-450) Mean Platelet Volume 8.5 fL (6.9-10.8) Neutrophils (%) (Auto) % (37.0-80.0) Lymphocytes (%) (Auto) % (10.0-50.0) Monocytes (%) (Auto) % (0.0-12.0) Basophils (%) (Auto) % (0.0-2.0) Neutrophils # (Auto) 10 ^3/uL (1.6-8.6) Lymphocytes # (Auto) 10 ^3/uL (0.4-5.4) Monocytes # (Auto) 10 ^3/uL (0-1.3) Differential Total Cells Counted 100.0 (100) Neutrophils % (Manual) 54 (37.0-80.0) Band Neutrophils % (Manual) 4 Lymphocytes % (Manual) 33 (10.0-50.0) Monocytes % (Manual) 9 (0-12) Eosinophils % (Manual) 0 (0-7) Basophils % (Manual) 0 (0.0-2.0) Metamyelocytes % (manual) 0 Myelocytes % (Manual) 0 Promyelocytes % (Manual) 0 Blast Cells % (Manual) 0 Reactive Lymphocytes 0 Platelet Estimate Adequate Eosinophils (%) (Auto) 1.6 % (0.0-7.0) Eosinophils # (Auto) 0.1 10 ^3/uL (0-0.8) Basophils # (Auto) 0 10 ^3/uL (0-0.2) Nucleated Red Blood Cells 0.2 % Magnesium Level 1.5 mg/dL (1.6-2.6) Total Bilirubin 0.4 mg/dL (0.2-1.0) Aspartate Amino Transferase (AST) 27 U/L (13-40) Alanine Aminotransferase (ALT) 13 U/L (7-40) Alkaline Phosphatase 71 U/L (46-116) Total Protein 4.2 g/dL (5.7-8.2) Albumin 2.4 g/dL (3.2-4.8) Test 07/21/25 06:41 07/21/25 04:00 07/21/25 01:40 07/21/25 00:19 Blood Gas Specimen Type Arterial Blood Gas Sample Site Right radial Blood Gas Patient Temperature 37.0 Arterial Blood Date Drawn [id number] Arterial Blood pH 7.328 (7.350-7.450) Arterial Blood Partial Pressure CO2 22.6 mmHg (32.0-45.0) Arterial Blood Partial Pressure O2 83.0 mmHg (83.0-108.0) Arterial Blood HCO3 11.6 mmol/L (21.0-28.0) Arterial Blood Oxygen Saturation 96.1 % (94.0-98.0) Arterial Blood Base Excess -12.6 mmol/L (-2.0-3.0) Arterial Blood Oxyhemoglobin 95.0 % (94.0-98.0) Arterial Blood Carboxyhemoglobin 0.5 % (0.5-1.5) Arterial Blood Methemoglobin 0.6 % (0.0-1.5) Mikal Test Yes Blood Gas Total Hemoglobin 11.10 g/dL (12.0-16.0) Blood Gas Modality Room air FiO2 % 21.0 Blood Gas Critical Value Read Back Yes Blood Gas Notified Whom Associate Counsel jd kirkpatrick Blood Gas Notified Time [id number] Blood Gas Notified By Rt maikel perez Serum Osmolality 356 mOsm/kg (278-298) Lactic Acid Level 5.5 mmol/L (0.4-2.0) Urine Color Light-yellow (Yellow) Urine Clarity Clear (Clear) Urine pH 5.0 (5.0-9.0) Urine Specific [place] 1.021 (1.001-1.035) Urine Protein Trace (Negative) Urine Ketones 3+ (Negative) Urine Blood Trace /uL (Negative) Urine Nitrite Negative (Negative) Urine Bilirubin Negative (Negative) Urine Urobilinogen Normal mg/dL (Negative) Urine Leukocyte Esterase Negative /uL (Negative) Urine RBC 1 /hpf (0 - 4) Urine Microscopic WBC 2 /HPF (0-5) Urine Squamous Epithelial Cells Few /hpf (<5) Urine Bacteria None seen /hpf (None Seen) Urine Hyaline Casts Few /lpf (0 - 2) Urine Mucus Few (None Seen) Urine Glucose 4+ mg/dL (Normal) Test 07/20/25 23:40 Large Platelets Few Phosphorus Level 8.0 mg/dL (2.4-5.1) Beta-Hydroxybutyric Acid > 4.500 mmol/L (< 0.4) Other Laboratory Tests 07/25/25 04:40 07/23/25 04:25 Brief Hx & Hospital Course: History of Present Illness 59-year-old female with a history of diabetes mellitus presents for evaluation of nausea and vomiting. Patient reports a two day history of nausea and vomiting with increased shortness for breath over the past one day. His blood sugars has been running high at home. On arrival blood sugar reading greater than 500. Course of hospitalization: Patient was given adequate IV hydration, as well as insulin drip. Empiric antibiotics were started with patient's leukocytosis resolving. No signs of active infection were noted. Patient was transitioned to regular insulin sliding scale, Lantus, as well as patient tolerating consistent carbohydrate diet. Patient blood sugars have remained stable. Patient will be discharged home and follow up with her PCP in 1-2 weeks. Patient was agreeable with discharge plan. All questions answered. Physical examination General: Alert and Oriented x3. No acute distress. Well-nourished. Eyes: EOMI. Anicteric. HENT: Moist mucous membranes. Lungs: Clear to auscultation bilaterally. No accessory muscle use. Cardiovascular: Regular rate and rhythm. No murmur. No JVD. Abdomen: Soft, non-tender and non-distended. No palpable masses. Extremities: No edema. Non-tender. Skin: No rashes or lesions. Warm. Neurologic: No focal neurological deficits. CN II-XII grossly intact, but not individually tested. Psychiatric: Cooperative. Appropriate mood and affect. Total time spent with patient discussing and formulating plan of care: 35 minutes. This medical document was created using an electronic medical record system with [employer] dictation system. Although this document has been carefully reviewed, there may still be some phonetic and typographical errors. These areas are purely typographical due to imperfections of the software programs, and do not reflect any compromise in the patient's medical care. Condition at Discharge: Guarded Final Diagnosis/Problems List Diabetic ketoacidosis Secondary diagnosis: -metabolic encephalopathy -diabetic ketoacidosis -leukocytosis, rule out sepsis -acute kidney injury -hypovolemic shock Discharge Disposition: Home Discharge Instruct/Medications Diet: Consistent carbohydrate Activity: No Restrictions, As Tolerated Follow Up/Referral: Follow up with PCP in 1-2 weeks Medications: Continue all previous home medications Scheduled Ascorbic Acid (Vitamin C), 500 MG PO DAILY Buspirone HCl (Buspirone HCl), 10 MG PO BID, (Reported) Clotrimazole (Clotrimazole), 1 APPLIC TOP Q12HR, (Reported) Gabapentin (Gabapentin), 100 MG PO BID, (Reported) Insulin Glargine (Lantus), 33 UNIT SC HS, (Reported) Metformin Hydrochloride (Metformin Hcl), 1,000 MG PO IBID, (Reported) Omeprazole (Gnp Omeprazole), 2 TAB PO DAILY, (Reported) Pseudoephedrine (Sm Nasal Decongestant), 60 MG PO TID, (Reported) Vancomycin HCl (Vancomycin HCl), 125 MG PO QID Zinc Sulfate (Zinc), 220 MG PO DAILY 36 Discharge Statement: "Patient was advised to return to the ER or call 911 if any headaches, dizziness, shortness of breath, chest pain, abdominal pain, bleeding, fevers, or worsening of medical condition. Patient was counseled about treatment plan, medications, possible side effects, patientverbalized understanding. All questions were answered to the best of my ability. This discharge took greater then 30 minutes in planning, reviewing documentation, counseling the patient, and discussing with other team members." ASSESSMENT ASSESSMENT Assessment Diabetic ketoacidosis Date of Service: Jul 25, 2025 Billing Provider: KO GARCIA NP Common Visit Codes: [id number] DISCH DAY >30min KO GARCIA NP Jul 25, 2025 10:02
[2025-07-25 10:29] VITALS: BP 108/44; TEMP 37.3
== END 2025-07-25 12:33 | disposition home or self-care (01) | DRG 720 ==
LOC: ER 22:58 → OVERFLOW 07-21 03:41 → TELE-WESTW 07-22 05:40 → TELE-EAST 07-22 20:15
PROVIDERS: ADMIT Nurse Practitioner Acute Care; ATTEND Nurse Practitioner Acute Care
DX: A41.9 Sepsis, unspecified organism (principal); N17.0 Acute kidney failure with tubular necrosis; R57.1 Hypovolemic shock; E11.10 Type 2 diabetes mellitus with ketoacidosis without coma; G93.41 Metabolic encephalopathy; E44.1 Mild protein-calorie malnutrition; E87.5 Hyperkalemia; Z83.3 Family history of diabetes mellitus; Z68.1 Body mass index [BMI] 19.9 or less, adult
CPT/HCPCS: 36415; 36600; 71045; 74176; 80048; 80053; 81001; 82010; 82805; 82962; 83036; 83605; 83735; 83930; 84100; 85007; 85025; 85027; 87040; 87081; 93005; 94640; 99291; G0378; J1815; J2003; J2405